=== PATIENT | male | born 1940 | race Two or more races ===

== ENCOUNTER 2018-02-13 19:55 | Inpatient (IN) | payer MEDICARE, OTHER ==
[~2018-02-13] VITALS: Ht 188 cm; Wt 82.6 kg
[2018-02-13] MEDS ORDERED: Pantoprazole Inj IVP ONE (20:00)
[2018-02-13 20:10] VITALS: BP 139/51
[2018-02-13 20:36] LABS: HEMATOCRIT 23.8 % (42.0-52.0); HEMOGLOBIN 8.5 G/DL (14.2-18.0); MEAN CORPUSCULAR VOLUME 89 FL (80-99); PLATELET COUNT 117 K/UL (150-450); RED BLOOD COUNT 2.67 M/UL (4.70-6.10); RED CELL DISTRIBUTION WIDTH 12.6 % (11.6-14.8); WHITE BLOOD COUNT 3.3 K/UL (4.8-10.8)
[2018-02-13 20:45] LABS: ANION GAP 4 mmol/L (5-15); BLOOD UREA NITROGEN 55 mg/dL (7-18); CALCIUM 8.9 MG/DL (8.5-10.1); CARBON DIOXIDE 28 MMOL/L (21-32); CHLORIDE 107 MMOL/L (98-107); CREATININE 1.9 MG/DL (0.55-1.30); POTASSIUM 5.7 MMOL/L (3.5-5.1); SODIUM 139 MMOL/L (136-145)
[2018-02-13 20:50] LABS: ALANINE AMINOTRANSFERASE 42 U/L (12-78); ALBUMIN/GLOBULIN RATIO 0.7 (1.0-2.7); ALKALINE PHOSPHATASE 87 U/L (46-116); ASPARTATE AMINO TRANSFERASE 25 U/L (15-37); BILIRUBIN,TOTAL 0.2 MG/DL (0.2-1.0)
[2018-02-13] MEDS ORDERED: ATORVASTATIN CA40 MG ORAL (21:11)
[2018-02-13] MEDS ORDERED: ASPIRIN EC81 MG ORAL (21:11)
[2018-02-13] MEDS ORDERED: RISPERDAL0.5 MG ORAL (21:11)
[2018-02-13] MEDS ORDERED: GLUCOTROL10 MG ORAL (21:11)
[2018-02-13] MEDS ORDERED: LANTUS SOL100 UNIT/1 SUBQ ×2 (21:11→21:12)
[2018-02-13] MEDS ORDERED: INSULIN LISPRO 100 UNIT/ML SUBQ (21:15)
[2018-02-13] MEDS ORDERED: SYNTHROID25 MCG ORAL (21:15)
[2018-02-13] MEDS ORDERED: KEPPRA750 MG ORAL (21:15)
[2018-02-13] MEDS ORDERED: JANUVIA100 MG ORAL (21:38)
[2018-02-13] MEDS ORDERED: LISINOPRIL10 MG ORAL (21:38)
[2018-02-13] MEDS ORDERED: NOVOLOG100 UNIT/3 SUBQ (21:41)
[2018-02-13] MEDS ORDERED: ACETAMINOPHEN325 M1 ORAL (21:41)
[2018-02-13] MEDS ORDERED: DOCUSATE SODIU100 MG ORAL (21:41)
[2018-02-13 22:10] VITALS: BP 172/89
[2018-02-13] MEDS ORDERED: LORazepam Inj 2mg/ml 1ml ONE (22:51)
[2018-02-13] MEDS ORDERED: LORazepam 0.5mg tab ORAL ONE (23:00)
[2018-02-13] MEDS ORDERED: LORazepam Inj 2mg/ml 1ml IV ONE (23:00)
--- NOTE | 2018-02-13 23:04 | Emergency Room Report ---
History of Present Illness General Chief Complaint: Abnormal Labs Source: Medical Record Present Illness HPI This is a 78-year-old male sent in from nursing facility after increased altered mental status and abnormal laboratory testing. The patient was noted to have evidence of increased generalized weakness. Patient stated that he had been sent to the hospital for a chronic pain to his hand. The patient is noted to have multiple medical problems which include HIV diabetes and hypothyroidism. The patient noted be markedly confused. History is limited by patient's mental status. Allergies: Coded Allergies: No Known Allergies (Unverified , 02/13/18) Patient History Reviewed Nursing Documentation: PMH: Agreed; PSxH: Agreed Nursing Documentation-PMH Past Medical History: No History, Except For Hx Hypertension: Yes Hx Diabetes: Yes History Of Psychiatric Problem: Yes Hx Cerebrovascular Accident: Yes - left Hx Seizures: Yes Review of Systems All Other Systems: limited Physical Exam Vital Signs Date Time Temp Pulse Resp B/P (MAP) Pulse Ox O2 Delivery O2 Flow Rate FiO2 02/13/18 19:45 98.0 75 20 120/63 97 98.1 Sp02 EP Interpretation: reviewed, normal General Appearance: normal inspection, alert, Chronically Ill Head: atraumatic ENT: normal ENT inspection, normal voice, dry mucus membranes Neck: normal inspection, supple, no bony tend, limited range of motion Respiratory: normal inspection, lungs clear, normal breath sounds, no respiratory distress, no retraction, no wheezing Cardiovascular #1: regular rate, rhythm, edema - left upper extremity edema Gastrointestinal: normal inspection, normal bowel sounds, non tender, soft, no guarding, no hernia Genitourinary: no CVA tenderness Musculoskeletal: normal range of motion, swelling - left upper extremity swelling Neurologic: alert, responsive, other - confusion, Psychiatric: mood/affect normal Skin: no rash Medical Decision Making Diagnostic Impression: Primary Impression: Pancytopenia Additional Impression: Hyperkalemia ER Course The patient presented for abnormal laboratory testing. Differential diagnoses included was not limited to aplastic anemia, GI bleed, hemolysis, hypothyroidism , among others. Because of complexity of patient's case laboratory testing and imaging studies were ordered. The laboratory testing showed evidence of anemia as well as thrombocytopenia and low white count. The patient started on IV fluids due to elevated BUN/ creatinine. Dr. Collins was contacted for Dr. Sandoval for inpatient management due to hyperkalemia and pancytopenia. Labs Test 02/13/18 20:00 White Blood Count 3.3 K/UL (4.8-10.8) Red Blood Count 2.67 M/UL (4.70-6.10) Hemoglobin 8.5 G/DL (14.2-18.0) Hematocrit 23.8 % (42.0-52.0) Mean Corpuscular Volume 89 FL (80-99) Mean Corpuscular Hemoglobin 31.8 PG (27.0-31.0) Mean Corpuscular Hemoglobin Concent 35.7 G/DL (32.0-36.0) Red Cell Distribution Width 12.6 % (11.6-14.8) Platelet Count 117 K/UL (150-450) Mean Platelet Volume 6.7 FL (6.5-10.1) Neutrophils (%) (Auto) % (45.0-75.0) Lymphocytes (%) (Auto) % (20.0-45.0) Monocytes (%) (Auto) % (1.0-10.0) Eosinophils (%) (Auto) % (0.0-3.0) Basophils (%) (Auto) % (0.0-2.0) Differential Total Cells Counted 100 Neutrophils % (Manual) 60 % (45-75) Lymphocytes % (Manual) 36 % (20-45) Monocytes % (Manual) 3 % (1-10) Eosinophils % (Manual) 1 % (0-3) Basophils % (Manual) 0 % (0-2) Band Neutrophils 0 % (0-8) Platelet Estimate Decreased Platelet Morphology Normal Red Blood Cell Morphology Normal Hypochromasia 1+ Prothrombin Time 10.1 SEC (9.30-11.50) Prothromb Time International Ratio 1.0 (0.9-1.1) Activated Partial Thromboplast Time 25 SEC (23-33) Sodium Level 139 MMOL/L (136-145) Potassium Level 5.7 MMOL/L (3.5-5.1) Chloride Level 107 MMOL/L (98-107) Carbon Dioxide Level 28 MMOL/L (21-32) Anion Gap 4 mmol/L (5-15) Blood Urea Nitrogen 55 mg/dL (7-18) Creatinine 1.9 MG/DL (0.55-1.30) Estimat Glomerular Filtration Rate mL/min (>60) Glucose Level 317 MG/DL (74-106) Calcium Level 8.9 MG/DL (8.5-10.1) Total Bilirubin 0.2 MG/DL (0.2-1.0) Aspartate Amino Transf (AST/SGOT) 25 U/L (15-37) Alanine Aminotransferase (ALT/SGPT) 42 U/L (12-78) Alkaline Phosphatase 87 U/L (46-116) Total Protein 7.1 G/DL (6.4-8.2) Albumin 3.0 G/DL (3.4-5.0) Globulin 4.1 g/dL Albumin/Globulin Ratio 0.7 (1.0-2.7) Last Vital Signs Date Time Temp Pulse Resp B/P (MAP) Pulse Ox O2 Delivery O2 Flow Rate FiO2 02/13/18 20:10 98.1 66 17 139/51 100 98.1 Status: unchanged Disposition: ADMITTED INPATIENT Condition: Stable Referrals: Stella Gandara MD (PCP) Charlie Saunders MD Feb 13, 2018 23:04
[2018-02-13 23:13] VITALS: BP 162/79
[2018-02-14] VITALS (7 sets, daily range): BP systolic 116–158; BP diastolic 50–75
[2018-02-14] MEDS: LORazepam Inj 2mg/ml 1ml IV PRN ×2 (01:19→09:48)
[2018-02-14] MEDS: Levothyroxine 25mcg tab ORAL SCH (05:50)
[2018-02-14] MEDS: NovoLOG Insulin Flexpen SUBQ SCH ×4 (05:51→21:36)
[2018-02-14] MEDS ORDERED: Lisinopril 20mg tab ORAL SCH (09:00)
[2018-02-14] MEDS: Aspirin EC 81mg tab ORAL SCH (09:20)
[2018-02-14] MEDS: Docusate 100mg cap ORAL SCH (09:20)
[2018-02-14 12:49] LABS: HEMATOCRIT 21.5 % (42.0-52.0); HEMOGLOBIN 7.2 G/DL (14.2-18.0); MEAN CORPUSCULAR VOLUME 89 FL (80-99); PLATELET COUNT 78 K/UL (150-450); RED CELL DISTRIBUTION WIDTH 13.1 % (11.6-14.8); WHITE BLOOD COUNT 2.7 K/UL (4.8-10.8)
[2018-02-14 12:59] LABS: ANION GAP 3 mmol/L (5-15); BLOOD UREA NITROGEN 45 mg/dL (7-18); CALCIUM 8.4 MG/DL (8.5-10.1); CARBON DIOXIDE 28 MMOL/L (21-32); CHLORIDE 113 MMOL/L (98-107); CREATININE 1.5 MG/DL (0.55-1.30); SODIUM 144 MMOL/L (136-145)
[2018-02-14] MEDS ORDERED: levETIRAcetam 1,000mg/NS100ml 100 ML IVPB SCH (14:15)
--- NOTE | 2018-02-14 14:29 | History and Physical ---
History of Present Illness General Date patient seen: Feb 14, 2018 Time patient seen: 11:30 Reason for Hospitalization: Abnormal Labs Present Illness HPI Patient is sedated from getting Ativan, unable to obtain information (obtained from chart) 78 year old man with history of AIDS, significant dementia, DM2, epilepsy, dyslipidemia, unspecified psychiatric disorder, hypothyroidism who was sent from [facility] for evaluation of confusion/agitation and low Hb of 6.9. Hb here was initially noted to be 8.5 and today is 7.2 Patient was agitated upon presentation and treated with IV Ativan for agitation. He is unable to provide any information. Allergies: Coded Allergies: No Known Allergies (Unverified , 02/13/18) Medication History Scheduled Aspirin Ec* (Aspirin Ec*), 81 MG ORAL DAILY, (Reported) Atorvastatin Calcium* (Atorvastatin Calcium*), 40 MG ORAL BEDTIME, (Reported) Docusate Sodium* (Docusate Sodium*), 100 MG ORAL DAILY, (Reported) Glipizide* (Glucotrol*), 10 MG ORAL ACBREAKFAST, (Reported) Insulin Glargine (Lantus), 30 UNITS SUBQ BEFORE BREAKFAST, (Reported) Insulin Glargine (Lantus), 10 UNITS SUBQ BEDTIME, (Reported) Levetiracetam (Keppra), 1,500 MG ORAL BID, (Reported) Levothyroxine Sodium* (Synthroid*), 25 MCG ORAL DAILY, (Reported) Lisinopril* (Lisinopril*), 10 MG ORAL DAILY, (Reported) Risperidone* (Risperdal*), 1.5 MG ORAL BID, (Reported) Sitagliptin (Januvia), 100 MG ORAL DAILY, (Reported) [Lispro 100 Units/Ml], 3 UNITS SUBQ TID, (Reported) Scheduled PRN Acetaminophen* (Acetaminophen 325MG Tablet*), 650 MG ORAL Q6H PRN for Mild Pain/ Temp > 100.5, (Reported) Miscellaneous Medications Insulin Aspart* (Novolog*), Unknown Dose SUBQ, (Reported) Patient History Limited by: medical condition History Provided By: Medical Record Healthcare decision maker Resuscitation status Full Code Advanced Directive on File No Family History Family History: Unable to obtain due to encephalopathy Social History Social History: (1) Unable to obtan due to encephalopathy Review of Systems ROS Narrative Unable to obtain due to encephalopathy Physical Exam General Appearance: lethargic Lines, tubes and drains: peripheral HEENT: normocephalic, atraumatic, anicteric Neck: non-tender, normal alignment, supple Respiratory/Chest: lungs clear, normal breath sounds, no respiratory distress Cardiovascular/Chest: normal peripheral pulses, normal rate, regular rhythm Abdomen: normal bowel sounds, non tender Extremities: normal inspection, no edema Skin Exam: normal pigmentation, warm/dry Neurologic: other - Unable to participate in Neuro exam due to confusion Musculoskeletal: normal muscle bulk, no effusion Last 24 Hour Vital Signs Date Time Temp Pulse Resp B/P (MAP) Pulse Ox O2 Delivery O2 Flow Rate FiO2 02/14/18 12:00 96.7 59 18 132/68 (89) 99 96.7 02/14/18 09:19 123/55 02/14/18 09:00 Room Air 02/14/18 08:00 58 02/14/18 08:00 97.5 70 19 123/55 (77) 99 97.5 02/14/18 04:00 58 02/14/18 04:00 98.1 68 19 139/66 (90) 95 98.1 02/14/18 00:38 Room Air 02/14/18 00:31 78 02/14/18 00:25 98.1 88 17 158/60 100 98.1 02/14/18 00:25 97.3 79 18 147/75 (99) 99 97.3 02/14/18 00:04 98.1 88 17 158/60 100 98.1 02/13/18 23:13 98.1 75 17 162/79 100 98.1 02/13/18 22:10 98.1 82 17 172/89 100 98.1 02/13/18 20:10 98.1 66 17 139/51 100 98.1 02/13/18 19:45 98.0 75 20 120/63 97 98.1 Intake and Output 02/13/18 02/14/18 19:00 07:00 Output Total 200 ml Balance -200 ml Output Urine Total 200 ml # Voids 1 Laboratory Tests Test 02/13/18 20:00 02/14/18 12:41 White Blood Count 3.3 K/UL (4.8-10.8) L 2.7 K/UL (4.8-10.8) L Red Blood Count 2.67 M/UL (4.70-6.10) L 2.40 M/UL (4.70-6.10) L Hemoglobin 8.5 G/DL (14.2-18.0) L 7.2 G/DL (14.2-18.0) L Hematocrit 23.8 % (42.0-52.0) L 21.5 % (42.0-52.0) L Mean Corpuscular Volume 89 FL (80-99) 89 FL (80-99) Mean Corpuscular Hemoglobin 31.8 PG (27.0-31.0) H 30.0 PG (27.0-31.0) Mean Corpuscular Hemoglobin Concent 35.7 G/DL (32.0-36.0) 33.6 G/DL (32.0-36.0) Red Cell Distribution Width 12.6 % (11.6-14.8) 13.1 % (11.6-14.8) Platelet Count 117 K/UL (150-450) L 78 K/UL (150-450) L Mean Platelet Volume 6.7 FL (6.5-10.1) 7.3 FL (6.5-10.1) Neutrophils (%) (Auto) % (45.0-75.0) % (45.0-75.0) Lymphocytes (%) (Auto) % (20.0-45.0) % (20.0-45.0) Monocytes (%) (Auto) % (1.0-10.0) % (1.0-10.0) Eosinophils (%) (Auto) % (0.0-3.0) % (0.0-3.0) Basophils (%) (Auto) % (0.0-2.0) % (0.0-2.0) Differential Total Cells Counted 100 Neutrophils % (Manual) 60 % (45-75) Pending Lymphocytes % (Manual) 36 % (20-45) Pending Monocytes % (Manual) 3 % (1-10) Eosinophils % (Manual) 1 % (0-3) Basophils % (Manual) 0 % (0-2) Band Neutrophils 0 % (0-8) Platelet Estimate Decreased L Pending Platelet Morphology Normal Pending Red Blood Cell Morphology Normal Hypochromasia 1+ Prothrombin Time 10.1 SEC (9.30-11.50) Prothromb Time International Ratio 1.0 (0.9-1.1) Activated Partial Thromboplast Time 25 SEC (23-33) Sodium Level 139 MMOL/L (136-145) 144 MMOL/L (136-145) Potassium Level 5.7 MMOL/L (3.5-5.1) H 5.0 MMOL/L (3.5-5.1) Chloride Level 107 MMOL/L (98-107) 113 MMOL/L (98-107) H Carbon Dioxide Level 28 MMOL/L (21-32) 28 MMOL/L (21-32) Anion Gap 4 mmol/L (5-15) L 3 mmol/L (5-15) L Blood Urea Nitrogen 55 mg/dL (7-18) H 45 mg/dL (7-18) H Creatinine 1.9 MG/DL (0.55-1.30) H 1.5 MG/DL (0.55-1.30) H Estimat Glomerular Filtration Rate mL/min (>60) mL/min (>60) Glucose Level 317 MG/DL (74-106) H 117 MG/DL (74-106) #H Calcium Level 8.9 MG/DL (8.5-10.1) 8.4 MG/DL (8.5-10.1) L Total Bilirubin 0.2 MG/DL (0.2-1.0) Aspartate Amino Transf (AST/SGOT) 25 U/L (15-37) Alanine Aminotransferase (ALT/SGPT) 42 U/L (12-78) Alkaline Phosphatase 87 U/L (46-116) Total Protein 7.1 G/DL (6.4-8.2) Albumin 3.0 G/DL (3.4-5.0) L Globulin 4.1 g/dL Albumin/Globulin Ratio 0.7 (1.0-2.7) L Height (Feet): 6 Height (Inches): 2.00 Weight (Pounds): 200 Medications Current Medications Medications (Trade) Dose Ordered Sig/Yoandy Route PRN Reason Start Time Stop Time Status Last Admin Dose Admin Acetaminophen (Tylenol) 650 mg Q6HR PRN ORAL Mild Pain (Pain Scale 1-3) 02/14/18 01:00 03/16/18 00:59 Aspirin (Ecotrin) 81 mg DAILY ORAL 02/14/18 09:00 03/16/18 08:59 02/14/18 09:20 Atorvastatin Calcium (Lipitor) 40 mg BEDTIME ORAL 02/14/18 21:00 03/16/18 20:59 Dextrose (Dextrose 50%) 25 ml STAT PRN IV Hypoglycemia 02/14/18 01:00 03/16/18 00:59 Dextrose (Dextrose 50%) 50 ml STAT PRN IV Hypoglycemia 02/14/18 01:00 03/16/18 00:59 Docusate Sodium (Colace) 100 mg DAILY ORAL 02/14/18 09:00 03/16/18 08:59 02/14/18 09:20 Insulin Aspart (NovoLOG) BEFORE MEALS AND HS SUBQ 02/14/18 06:30 03/16/18 06:29 02/14/18 11:53 Levetiracetam 100 ml @ 400 mls/hr BID IVPB 02/14/18 14:15 03/16/18 14:14 UNV Levetiracetam 1500 mg/Dextrose 110 ml @ 440 mls/hr Q12HR IVPB 02/14/18 14:15 03/16/18 14:14 UNV Levothyroxine Sodium (Synthroid) 25 mcg ACBREAKFAST ORAL 02/14/18 06:30 03/16/18 06:29 02/14/18 05:50 Sodium Chloride 1,000 ml @ 100 mls/hr Q10H IV 02/14/18 12:00 03/16/18 11:59 02/14/18 12:16 Assessment/Plan Assessment/Plan Acute encephalopathy superimposed on chronic dementia, also exacerbated by sedative medications given for agitation. Unclear etiology, could be related to mild AGUILAR present on admission or occult infection. Will admit to medical service , continue to treat supportively, avoid benzos, frequent orienting, fall, aspiration precautions. Correct underlying AGUILAR. Psychiatry consulted. Mild AGUILAR, unknown etiology, improved, continue with IV fluids and repeat BMP in AM. Avoid nephrotic meds Hyperkalemia, potassium has improved from 5.7 to 5.0, continue to monitor daily potassium levels Acute on chronic anemia, no evidence of major bleeding, will check fecal occult blood. Hematology consulted history of epilepsy, will give Keppra intravenously as he is unable to take PO meds due to lethargy type 2 DM, controlled, hold oral diabetic meds while oral intake is minimal, will give reduced dose Lantus Hypothyroidism, continue levothyroxine - can give intravenously if he remains lethargic. VTE PPx Heparin SC Full Code Patient will require a hospitalization crossing 2 midnights in order to treat his AGUILAR with IV fluids and monitor progress of the acute encephalopathy Gavino Amaya MD Feb 14, 2018 14:29
[2018-02-14] MEDS: levETIRAcetam 1,500 MG in D5W 95 ML IV SCH (15:13)
--- NOTE | 2018-02-14 15:40 | Cardiology Report ---
APPROVED REPORT EKG Measurement Heart [id number] Sinus rhythm with 1st degree AV block Left axis deviation Nonspecific ST abnormality Abnormal ECG
--- NOTE | 2018-02-14 15:45 | Consultation ---
Consult Note Consult Note Hematology Consultation FATOUMATA REBOLLAR: Juliocesar DOS: 02/14/18 RFC: Pancytopenia ID 78 year old man with history of AIDS, significant dementia, DM2, epilepsy, dyslipidemia, unspecified psychiatric disorder, hypothyroidism who was sent from [facility] for evaluation of confusion/agitation and low Hb of 6.9. Hb here was initially noted to be 8.5 and today is 7.2 Patient was agitated upon presentation and treated with IV Ativan for agitation. He is unable to provide any information.Patient is sedated from getting Ativan, unable to obtain information (obtained from chart) in addition this the first time cbc was drawn as per review of the records Allergies: No Known Allergies (Unverified , 02/13/18) Medication History Scheduled Aspirin Ec* (Aspirin Ec*), 81 MG ORAL DAILY, (Reported) Atorvastatin Calcium* (Atorvastatin Calcium*), 40 MG ORAL BEDTIME, (Reported) Docusate Sodium* (Docusate Sodium*), 100 MG ORAL DAILY, (Reported) Glipizide* (Glucotrol*), 10 MG ORAL ACBREAKFAST, (Reported) Insulin Glargine (Lantus), 30 UNITS SUBQ BEFORE BREAKFAST, (Reported) Insulin Glargine (Lantus), 10 UNITS SUBQ BEDTIME, (Reported) Levetiracetam (Keppra), 1,500 MG ORAL BID, (Reported) Levothyroxine Sodium* (Synthroid*), 25 MCG ORAL DAILY, (Reported) Lisinopril* (Lisinopril*), 10 MG ORAL DAILY, (Reported) Risperidone* (Risperdal*), 1.5 MG ORAL BID, (Reported) Sitagliptin (Januvia), 100 MG ORAL DAILY, (Reported) [Lispro 100 Units/Ml], 3 UNITS SUBQ TID, (Reported) Scheduled PRN Acetaminophen* (Acetaminophen 325MG Tablet*), 650 MG ORAL Q6H PRN for Mild Pain/ Temp > 100.5, (Reported) Miscellaneous Medications Insulin Aspart* (Novolog*), Unknown Dose SUBQ, (Reported) Patient History Limited by: medical condition History Provided By: Medical Record Healthcare decision maker Full Code Advanced Directive on File No Family History Family History: Unable to obtain due to encephalopathy Social History Social History: (1) Unable to obtan due to encephalopathy Review of Systems ROS Narrative Unable to obtain due to encephalopathy Physical Exam General Appearance: lethargic Lines, tubes and drains: peripheral HEENT: normocephalic, atraumatic Neck: non-tender, normal alignment, supple Respiratory/Chest: lungs clear, normal breath sounds Cardiovascular/Chest: normal peripheral pulses, rrr Abdomen: normal bowel sounds, nt Extremities: normal inspection, no edema Skin Exam: normal pigmentation, warm/dry Neurologic: other - Unable to participate in Neuro exam due to confusion Musculoskeletal: normal muscle bulk, no effusion Last 24 Hour Vital Signs Date Time Temp Pulse Resp B/P (MAP) Pulse Ox O2 Delivery O2 Flow Rate FiO2 02/14/18 12:00 96.7 59 18 132/68 (89) 99 96.7 02/14/18 09:19 123/55 02/14/18 09:00 Room Air 02/14/18 08:00 58 02/14/18 08:00 97.5 70 19 123/55 (77) 99 97.5 02/14/18 04:00 58 02/14/18 04:00 98.1 68 19 139/66 (90) 95 98.1 02/14/18 00:38 Room Air 02/14/18 00:31 78 02/14/18 00:25 98.1 88 17 158/60 100 98.1 02/14/18 00:25 97.3 79 18 147/75 (99) 99 97.3 02/14/18 00:04 98.1 88 17 158/60 100 98.1 02/13/18 23:13 98.1 75 17 162/79 100 98.1 02/13/18 22:10 98.1 82 17 172/89 100 98.1 02/13/18 20:10 98.1 66 17 139/51 100 98.1 02/13/18 19:45 98.0 75 20 120/63 97 98.1 Intake and Output 02/13/18 02/14/18 19:00 07:00 Output Total 200 ml Balance -200 ml Output Urine Total 200 ml # Voids 1 Laboratory Tests Test 02/13/18 20:00 02/14/18 12:41 White Blood Count 3.3 K/UL (4.8-10.8) L 2.7 K/UL (4.8-10.8) L Red Blood Count 2.67 M/UL (4.70-6.10) L 2.40 M/UL (4.70-6.10) L Hemoglobin 8.5 G/DL (14.2-18.0) L 7.2 G/DL (14.2-18.0) L Hematocrit 23.8 % (42.0-52.0) L 21.5 % (42.0-52.0) L Mean Corpuscular Volume 89 FL (80-99) 89 FL (80-99) Mean Corpuscular Hemoglobin 31.8 PG (27.0-31.0) H 30.0 PG (27.0-31.0) Mean Corpuscular Hemoglobin Concent 35.7 G/DL (32.0-36.0) 33.6 G/DL (32.0-36.0) Red Cell Distribution Width 12.6 % (11.6-14.8) 13.1 % (11.6-14.8) Platelet Count 117 K/UL (150-450) L 78 K/UL (150-450) L Mean Platelet Volume 6.7 FL (6.5-10.1) 7.3 FL (6.5-10.1) Neutrophils (%) (Auto) % (45.0-75.0) % (45.0-75.0) Lymphocytes (%) (Auto) % (20.0-45.0) % (20.0-45.0) Monocytes (%) (Auto) % (1.0-10.0) % (1.0-10.0) Eosinophils (%) (Auto) % (0.0-3.0) % (0.0-3.0) Basophils (%) (Auto) % (0.0-2.0) % (0.0-2.0) Differential Total Cells Counted 100 Neutrophils % (Manual) 60 % (45-75) Pending Lymphocytes % (Manual) 36 % (20-45) Pending Monocytes % (Manual) 3 % (1-10) Eosinophils % (Manual) 1 % (0-3) Basophils % (Manual) 0 % (0-2) Band Neutrophils 0 % (0-8) Platelet Estimate Decreased L Pending Platelet Morphology Normal Pending Red Blood Cell Morphology Normal Hypochromasia 1+ Prothrombin Time 10.1 SEC (9.30-11.50) Prothromb Time International Ratio 1.0 (0.9-1.1) Activated Partial Thromboplast Time 25 SEC (23-33) Sodium Level 139 MMOL/L (136-145) 144 MMOL/L (136-145) Potassium Level 5.7 MMOL/L (3.5-5.1) H 5.0 MMOL/L (3.5-5.1) Chloride Level 107 MMOL/L (98-107) 113 MMOL/L (98-107) H Carbon Dioxide Level 28 MMOL/L (21-32) 28 MMOL/L (21-32) Anion Gap 4 mmol/L (5-15) L 3 mmol/L (5-15) L Blood Urea Nitrogen 55 mg/dL (7-18) H 45 mg/dL (7-18) H Creatinine 1.9 MG/DL (0.55-1.30) H 1.5 MG/DL (0.55-1.30) H Estimat Glomerular Filtration Rate mL/min (>60) mL/min (>60) Glucose Level 317 MG/DL (74-106) H 117 MG/DL (74-106) #H Calcium Level 8.9 MG/DL (8.5-10.1) 8.4 MG/DL (8.5-10.1) L Total Bilirubin 0.2 MG/DL (0.2-1.0) Aspartate Amino Transf (AST/SGOT) 25 U/L (15-37) Alanine Aminotransferase (ALT/SGPT) 42 U/L (12-78) Alkaline Phosphatase 87 U/L (46-116) Total Protein 7.1 G/DL (6.4-8.2) Albumin 3.0 G/DL (3.4-5.0) L Globulin 4.1 g/dL Albumin/Globulin Ratio 0.7 (1.0-2.7) L Height (Feet): 6 Height (Inches): 2.00 Weight (Pounds): 200 Medications Current Medications Medications (Trade) Dose Ordered Sig/Yoandy Route PRN Reason Start Time Stop Time Status Last Admin Dose Admin Acetaminophen (Tylenol) 650 mg Q6HR PRN ORAL Mild Pain (Pain Scale 1-3) 02/14/18 01:00 03/16/18 00:59 Aspirin (Ecotrin) 81 mg DAILY ORAL 02/14/18 09:00 03/16/18 08:59 02/14/18 09:20 Atorvastatin Calcium (Lipitor) 40 mg BEDTIME ORAL 02/14/18 21:00 03/16/18 20:59 Dextrose (Dextrose 50%) 25 ml STAT PRN IV Hypoglycemia 02/14/18 01:00 03/16/18 00:59 Dextrose (Dextrose 50%) 50 ml STAT PRN IV Hypoglycemia 02/14/18 01:00 03/16/18 00:59 Docusate Sodium (Colace) 100 mg DAILY ORAL 02/14/18 09:00 03/16/18 08:59 02/14/18 09:20 Insulin Aspart (NovoLOG) BEFORE MEALS AND HS SUBQ 02/14/18 06:30 03/16/18 06:29 02/14/18 11:53 Levetiracetam 100 ml @ 400 mls/hr BID IVPB 02/14/18 14:15 03/16/18 14:14 UNV Levetiracetam 1500 mg/Dextrose 110 ml @ 440 mls/hr Q12HR IVPB 02/14/18 14:15 03/16/18 14:14 UNV Levothyroxine Sodium (Synthroid) 25 mcg ACBREAKFAST ORAL 02/14/18 06:30 03/16/18 06:29 02/14/18 05:50 Sodium Chloride 1,000 ml @ 100 mls/hr Q10H IV 02/14/18 12:00 03/16/18 11:59 02/14/18 12:16 Assessment/Recs: # Pancytopenia - unknown cause and requires workup at this time, have ordered several labs as noted before and imaging as wel --> hepatitis and hiv ordered, us of the abdomen --> anemia panel ordered as well, ferritin, tibc, folic acid, tsh, occult blood --> peripheral smear ordered --> imaging to be reviewed --> r/o infectious etiology # Acute encephalopathy superimposed on chronic dementia, also exacerbated by sedative medications given for agitation. Unclear etiology, could be related to mild AGUILAR present on admission or occult infection. # AMS - avoid benzos, frequent orienting, fall, aspiration precautions. Correct underlying AGUILAR. Psychiatry consulted. # Mild AGUILAR, unknown etiology, improved, continue with IV fluids and repeat BMP in AM. Avoid nephrotic meds # Hyperkalemia, potassium has improved from 5.7 to 5.0, continue to monitor daily potassium levels # History of epilepsy, will give Keppra intravenously as he is unable to take PO meds due to lethargy # type 2 DM, controlled, hold oral diabetic meds while oral intake is minimal, will give reduced dose Lantus # Hypothyroidism, continue levothyroxine - can give intravenously if he remains lethargic. # Azotemia has been reviewed # DVT ppx is ok with heparin if plt >50k GREATLY APPRECIATE CONSULTATION. Watson Adams MD Feb 14, 2018 15:45
[2018-02-14 16:45] LABS: % IRON SATURATION 26 % (15-50); IRON 54 ug/dL (50-175); TOTAL IRON BINDING CAPACITY 207 ug/dL (250-450)
[2018-02-14 18:16] LABS: FERRITIN 317 NG/ML (8-388); LACTATE DEHYDROGENASE 197 U/L (81-234)
[2018-02-14] MEDS: Levemir Flexpen SUBQ SCH (21:37)
[2018-02-14] MEDS: Atorvastatin 80mg tab ORAL SCH (21:39)
[2018-02-15] VITALS: BP 103/64
[2018-02-15] MEDS ORDERED: Haloperidol Decanoate 50mg Inj IM SCH (00:15)
[2018-02-15] MEDS ORDERED: Haloperidol 5mg/ml Inj IM SCH ×2 (00:30→09:30)
[2018-02-15] MEDS: levETIRAcetam 1,500 MG in D5W 95 ML IV SCH ×2 (03:18→15:56)
[2018-02-15 04:00] VITALS: BP 110/62
[2018-02-15] MEDS: NovoLOG Insulin Flexpen SUBQ SCH ×4 (06:08→20:22)
[2018-02-15] MEDS: Levothyroxine 25mcg tab ORAL SCH (06:31)
[2018-02-15 07:13] LABS: ANION GAP 3 mmol/L (5-15); BLOOD UREA NITROGEN 45 mg/dL (7-18); CALCIUM 8.4 MG/DL (8.5-10.1); CARBON DIOXIDE 27 MMOL/L (21-32); CHLORIDE 111 MMOL/L (98-107); CREATININE 1.6 MG/DL (0.55-1.30); POTASSIUM 5.4 MMOL/L (3.5-5.1); SODIUM 141 MMOL/L (136-145)
[2018-02-15 07:19] LABS: HEMATOCRIT 23.1 % (42.0-52.0); MEAN CORPUSCULAR VOLUME 89 FL (80-99); PLATELET COUNT 99 K/UL (150-450); RED BLOOD COUNT 2.58 M/UL (4.70-6.10); RED CELL DISTRIBUTION WIDTH 12.5 % (11.6-14.8); WHITE BLOOD COUNT 3.2 K/UL (4.8-10.8)
[2018-02-15] MEDS: Docusate 100mg cap ORAL SCH (08:32)
[2018-02-15] MEDS: Aspirin EC 81mg tab ORAL SCH (08:32)
[2018-02-15 08:39] VITALS: BP 148/72
[2018-02-15] MEDS ORDERED: Sodium Polystyrene Sulfonate Enema RECTAL ONE (10:00)
[2018-02-15] MEDS ORDERED: Haloperidol Lactate 5 MG in D5W 55 ML IVPB PRN (11:00)
[2018-02-15] MEDS: LORazepam Inj 2mg/ml 1ml IM PRN ×3 (11:05→23:12)
[2018-02-15 12:00] VITALS: BP 150/78
--- NOTE | 2018-02-15 14:14 | General Progress Note ---
Assessment/Plan Assessment/Plan Acute encephalopathy superimposed on chronic dementia, likely multifactorial, continue to treat underlying acute medical problems and provide supportive care. Mild AGUILAR, improved renal function, will stop IV fludis. Check labs in AM. Hyperkalemia, K of 5.4 today, give once dose of Kayexel[place]. Repeat labs in AM. Acute on chronic anemia, pancytopenia, no evidence of major bleeding, Hematology eval appreciated. history of epilepsy, continue Keppra type 2 DM, controlled, controlled, continue Levemir 10 units daily Hypothyroidism, continue levothyroxine VTE PPx Heparin SC Subjective Date patient seen: Feb 15, 2018 Time patient seen: 14:10 ROS Limited/Unobtainable: Yes Allergies: Coded Allergies: No Known Allergies (Unverified , 02/13/18) Subjective Medicine followup for pancytopenia, acute metabolic encephalopathy, AGUILAR, hyperkalemia. He remains confused and agiatted at time. Unable to obtain ROS due to dementia and encephalopathy Objective Last 24 Hour Vital Signs Date Time Temp Pulse Resp B/P (MAP) Pulse Ox O2 Delivery O2 Flow Rate FiO2 02/15/18 12:00 96.6 71 18 150/78 (102) 98 96.6 02/15/18 08:52 Room Air 02/15/18 08:39 96.4 67 18 148/72 (97) 99 96.4 02/15/18 08:00 73 02/15/18 04:00 71 02/15/18 04:00 98.1 55 18 110/62 (78) 95 98.1 02/15/18 01:24 72 02/15/18 00:00 98.0 54 18 103/64 (77) 95 98.0 02/14/18 21:00 Room Air 02/14/18 20:00 98.5 72 18 116/50 (72) 98 98.5 02/14/18 16:00 96.9 76 18 144/57 (86) 100 96.9 02/14/18 16:00 53 Intake and Output 02/14/18 02/15/18 19:00 07:00 Intake Total 400 ml 1300 ml Output Total 0 ml Balance 400 ml 1300 ml Intake Oral 400 ml 240 ml IV Total 1060 ml Stool Total 0 ml # Voids 3 3 Laboratory Tests 02/15/18 06:35: White Blood Count 3.2L, Red Blood Count 2.58L, Hemoglobin 8.0L, Hematocrit 23.1L , Mean Corpuscular Volume 89, Mean Corpuscular Hemoglobin 30.9, Mean Corpuscular Hemoglobin Concent 34.5, Red Cell Distribution Width 12.5, Platelet Count 99L, Mean Platelet Volume 7.1, Neutrophils (%) (Auto) , Lymphocytes (%) ( Auto) , Monocytes (%) (Auto) , Eosinophils (%) (Auto) , Basophils (%) (Auto) , Differential Total Cells Counted 100, Neutrophils % (Manual) 67, Lymphocytes % ( Manual) 25, Monocytes % (Manual) 5, Eosinophils % (Manual) 2, Basophils % ( Manual) 1, Band Neutrophils 0, Platelet Estimate DecreasedL, Platelet Morphology Normal, Hypochromasia 2+, Sodium Level 141, Potassium Level 5.4H, Chloride Level 111H, Carbon Dioxide Level 27, Anion Gap 3L, Blood Urea Nitrogen 45H, Creatinine 1.6H, Estimat Glomerular Filtration Rate , Glucose Level 119H, Calcium Level 8.4L Height (Feet): 6 Height (Inches): 2.00 Weight (Pounds): 200 General Appearance: alert, confused Neck: supple Cardiovascular: normal rate, regular rhythm Respiratory/Chest: normal breath sounds, no respiratory distress Abdomen: non tender, soft Gavino Amaay MD Feb 15, 2018 14:14
[2018-02-15] MEDS: Haloperidol 5mg/ml Inj IM PRN (14:20)
[2018-02-15 16:00] VITALS: BP 137/69
--- NOTE | 2018-02-15 16:43 | Diagnostic Imaging Report ---
Indication: Abdominal pain. Technique: A plantar ultrasound evaluation of the abdomen with duplex Doppler evaluation. Comparison: None Findings: Imaged portions of the pancreatic head grossly unremarkable. Liver is normal in size with the right hepatic lobe measuring 15 cm in length. No focal hepatic mass lesion is appreciated sonographically. Imaged hepatic veins are patent. Main portal vein is patent with normal direction of flow. Gallbladder is not identified. There is some echogenic structures in the gallbladder fossa, possibly surgical clips. Correlate for history of cholecystectomy. No intrahepatic or extra hepatic biliary ductal dilatation. The common bile duct measures approximately 2 mm in diameter. The right kidney measures 9.8 cm in length. Left kidney measures 9.8 cm in length. Both kidneys demonstrate normal echogenicity. Small simple appearing left renal cyst incidentally noted. The spleen is mildly enlarged measuring 12.7 cm in length. Trace ascites is noted in the left pericolic gutter. Question a small pericardial effusion. Atherosclerotic vascular calcifications noted in the abdominal aorta. Imaged portions of the abdominal aorta are normal in caliber.. Impression: * Lack of visualization of the gallbladder. Correlate for history of cholecystectomy. * Question small pericardial effusion. Correlation with echocardiogram recommended. * Trace ascites noted in the left pericolic gutter. * Borderline splenomegaly with the spleen measuring 12.7 cm in length.
[2018-02-15 20:00] VITALS: BP 151/76
[2018-02-15] MEDS: Atorvastatin 80mg tab ORAL SCH (20:21)
[2018-02-15] MEDS: Levemir Flexpen SUBQ SCH (20:22)
--- NOTE | 2018-02-15 21:09 | General Progress Note ---
Assessment/Plan Assessment/Plan Assessment/Recs: # Pancytopenia - unknown cause and requires workup at this time, have ordered several labs as noted before and imaging as well --> hepatitis and hiv ordered, us of the abdomen shows spenomegaly that is enlarged spleen --> anemia panel ordered as well, ferritin, tibc, folic acid, tsh, occult blood --> peripheral smear reviewed and shows no significant abnml --> r/o infectious etiology # Acute encephalopathy superimposed on chronic dementia, also exacerbated by sedative medications given for agitation. Unclear etiology, could be related to mild AGUILAR present on admission or occult infection. --> avoid benzos, frequent orienting, fall, aspiration precautions. Correct underlying AGUILAR. --> Psychiatry consulted. appreciate recs # Mild AGUILAR, unknown etiology, improved, continue with IV fluids and repeat BMP in AM. --> Avoid nephrotic meds # Hyperkalemia, potassium has improved from 5.7 to 5.0, continue to monitor daily potassium levels # History of epilepsy, will give Keppra intravenously as he is unable to take PO meds due to lethargy # type 2 DM, controlled, hold oral diabetic meds while oral intake is minimal, will give reduced dose Lantus # Hypothyroidism, continue levothyroxine - can give intravenously if he remains lethargic. # Azotemia has been reviewed # DVT ppx is ok with heparin if plt >50k GREATLY APPRECIATE CONSULTATION. Subjective Constitutional: Denies: no symptoms, chills, diaphoresis, fever, malaise, weakness, other HEENT: Denies: no symptoms, eye pain, blurred vision, tearing, double vision, ear pain, ear discharge, nose pain, nose congestion, throat pain, throat swelling, mouth pain, mouth swelling, other Cardiovascular: Denies: no symptoms, chest pain, edema, irregular heart rate, lightheadedness, palpitations, syncope, other Respiratory: Denies: no symptoms, cough, orthopnea, shortness of breath, SOB with excertion, SOB at rest, sputum, stridor, wheezing, other Gastrointestinal/Abdominal: Denies: no symptoms, abdomen distended, abdominal pain, black stools, tarry stools, blood in stool, constipated, diarrhea, difficulty swallowing, nausea, poor appetite, poor fluid intake, rectal bleeding , vomiting, other Genitourinary: Denies: no symptoms, burning, discharge, frequency, flank pain, hematuria, incontinence, pain, urgency, other Neurologic/Psychiatric: Denies: no symptoms, anxiety, depressed, emotional problems, headache, numbness, paresthesia, pre-existing deficit, seizure, tingling, tremors, weakness, other Endocrine: Denies: no symptoms, excessive sweating, flushing, intolerance to cold, intolerance to heat, increased hunger, increased thirst, increased urine, unexplained weight gain, unexplained weight loss, other Hematologic/Lymphatic: Denies: no symptoms, anemia, easy bleeding, easy bruising, other Allergies: Coded Allergies: No Known Allergies (Unverified , 02/13/18) Subjective ams and remains confursed Objective Last 24 Hour Vital Signs Date Time Temp Pulse Resp B/P (MAP) Pulse Ox O2 Delivery O2 Flow Rate FiO2 02/15/18 20:00 97.0 68 18 151/76 (101) 98 97.0 02/15/18 16:00 97.5 62 18 137/69 (91) 98 97.5 02/15/18 12:00 96.6 71 18 150/78 (102) 98 96.6 02/15/18 12:00 80 02/15/18 08:52 Room Air 02/15/18 08:39 96.4 67 18 148/72 (97) 99 96.4 02/15/18 08:00 73 02/15/18 04:00 71 02/15/18 04:00 98.1 55 18 110/62 (78) 95 98.1 02/15/18 01:24 72 02/15/18 00:00 98.0 54 18 103/64 (77) 95 98.0 Intake and Output 02/14/18 02/15/18 18:59 06:59 Intake Total 400 ml 1300 ml Output Total 0 ml Balance 400 ml 1300 ml Intake Oral 400 ml 240 ml IV Total 1060 ml Stool Total 0 ml # Voids 3 3 Laboratory Tests 02/15/18 06:35: White Blood Count 3.2L, Red Blood Count 2.58L, Hemoglobin 8.0L, Hematocrit 23.1L , Mean Corpuscular Volume 89, Mean Corpuscular Hemoglobin 30.9, Mean Corpuscular Hemoglobin Concent 34.5, Red Cell Distribution Width 12.5, Platelet Count 99L, Mean Platelet Volume 7.1, Neutrophils (%) (Auto) , Lymphocytes (%) ( Auto) , Monocytes (%) (Auto) , Eosinophils (%) (Auto) , Basophils (%) (Auto) , Differential Total Cells Counted 100, Neutrophils % (Manual) 67, Lymphocytes % ( Manual) 25, Monocytes % (Manual) 5, Eosinophils % (Manual) 2, Basophils % ( Manual) 1, Band Neutrophils 0, Platelet Estimate DecreasedL, Platelet Morphology Normal, Hypochromasia 2+, Sodium Level 141, Potassium Level 5.4H, Chloride Level 111H, Carbon Dioxide Level 27, Anion Gap 3L, Blood Urea Nitrogen 45H, Creatinine 1.6H, Estimat Glomerular Filtration Rate , Glucose Level 119H, Calcium Level 8.4L Height (Feet): 6 Height (Inches): 2.00 Weight (Pounds): 200 General Appearance: no apparent distress EENT: TMs normal Neck: supple Cardiovascular: regular rhythm Respiratory/Chest: chest wall non-tender Extremities: non-tender Edema: 1+ Leg (L), 1+ Leg (R) Edema: mild edema Neurologic: alert Skin: warm/dry Watson Adams MD Feb 15, 2018 21:09
--- NOTE | 2018-02-15 22:09 | Consultation ---
History of Present Illness General Chief Complaint: Abnormal Labs Present Illness HPI 78 year old man with history of AIDS, significant dementia, DM2, epilepsy, dyslipidemia, dementia encephalopathy who is agitated has waxing and waning, not engaged confused Allergies: Coded Allergies: No Known Allergies (Unverified , 02/13/18) Medication History Scheduled Aspirin Ec* (Aspirin Ec*), 81 MG ORAL DAILY, (Reported) Atorvastatin Calcium* (Atorvastatin Calcium*), 40 MG ORAL BEDTIME, (Reported) Docusate Sodium* (Docusate Sodium*), 100 MG ORAL DAILY, (Reported) Glipizide* (Glucotrol*), 10 MG ORAL ACBREAKFAST, (Reported) Insulin Glargine (Lantus), 30 UNITS SUBQ BEFORE BREAKFAST, (Reported) Insulin Glargine (Lantus), 10 UNITS SUBQ BEDTIME, (Reported) Levetiracetam (Keppra), 1,500 MG ORAL BID, (Reported) Levothyroxine Sodium* (Synthroid*), 25 MCG ORAL DAILY, (Reported) Lisinopril* (Lisinopril*), 10 MG ORAL DAILY, (Reported) Risperidone* (Risperdal*), 1.5 MG ORAL BID, (Reported) Sitagliptin (Januvia), 100 MG ORAL DAILY, (Reported) [Lispro 100 Units/Ml], 3 UNITS SUBQ TID, (Reported) Scheduled PRN Acetaminophen* (Acetaminophen 325MG Tablet*), 650 MG ORAL Q6H PRN for Mild Pain/ Temp > 100.5, (Reported) Miscellaneous Medications Insulin Aspart* (Novolog*), Unknown Dose SUBQ, (Reported) Patient History Limited by: medical condition History Provided By: Patient, Medical Record, PMD Healthcare decision maker Resuscitation status Full Code Advanced Directive on File No Past Medical/Surgical History Past Medical/Surgical History: (1) Hyperkalemia (2) Pancytopenia (3) Anemia (4) Unable to obtan due to encephalopathy (5) Agitation Review of Systems Psychiatric: Reports: anxiety, depressed feelings, emotional problems, hallucinations Physical Exam General Appearance: no apparent distress, alert, confused, agitated, combative Last 24 Hour Vital Signs Date Time Temp Pulse Resp B/P (MAP) Pulse Ox O2 Delivery O2 Flow Rate FiO2 9/17/18 21:00 Room Air 02/15/18 20:00 97.0 68 18 151/76 (101) 98 97.0 02/15/18 16:00 97.5 62 18 137/69 (91) 98 97.5 02/15/18 12:00 96.6 71 18 150/78 (102) 98 96.6 02/15/18 12:00 80 02/15/18 08:52 Room Air 02/15/18 08:39 96.4 67 18 148/72 (97) 99 96.4 02/15/18 08:00 73 02/15/18 04:00 71 02/15/18 04:00 98.1 55 18 110/62 (78) 95 98.1 02/15/18 01:24 72 02/15/18 00:00 98.0 54 18 103/64 (77) 95 98.0 Intake and Output 02/14/18 02/15/18 19:00 07:00 Intake Total 400 ml 1300 ml Output Total 0 ml Balance 400 ml 1300 ml Intake Oral 400 ml 240 ml IV Total 1060 ml Stool Total 0 ml # Voids 3 3 Laboratory Tests Test 02/15/18 06:35 White Blood Count 3.2 K/UL (4.8-10.8) L Red Blood Count 2.58 M/UL (4.70-6.10) L Hemoglobin 8.0 G/DL (14.2-18.0) L Hematocrit 23.1 % (42.0-52.0) L Mean Corpuscular Volume 89 FL (80-99) Mean Corpuscular Hemoglobin 30.9 PG (27.0-31.0) Mean Corpuscular Hemoglobin Concent 34.5 G/DL (32.0-36.0) Red Cell Distribution Width 12.5 % (11.6-14.8) Platelet Count 99 K/UL (150-450) L Mean Platelet Volume 7.1 FL (6.5-10.1) Neutrophils (%) (Auto) % (45.0-75.0) Lymphocytes (%) (Auto) % (20.0-45.0) Monocytes (%) (Auto) % (1.0-10.0) Eosinophils (%) (Auto) % (0.0-3.0) Basophils (%) (Auto) % (0.0-2.0) Differential Total Cells Counted 100 Neutrophils % (Manual) 67 % (45-75) Lymphocytes % (Manual) 25 % (20-45) Monocytes % (Manual) 5 % (1-10) Eosinophils % (Manual) 2 % (0-3) Basophils % (Manual) 1 % (0-2) Band Neutrophils 0 % (0-8) Platelet Estimate Decreased L Platelet Morphology Normal Hypochromasia 2+ Sodium Level 141 MMOL/L (136-145) Potassium Level 5.4 MMOL/L (3.5-5.1) H Chloride Level 111 MMOL/L (98-107) H Carbon Dioxide Level 27 MMOL/L (21-32) Anion Gap 3 mmol/L (5-15) L Blood Urea Nitrogen 45 mg/dL (7-18) H Creatinine 1.6 MG/DL (0.55-1.30) H Estimat Glomerular Filtration Rate mL/min (>60) Glucose Level 119 MG/DL (74-106) H Calcium Level 8.4 MG/DL (8.5-10.1) L Height (Feet): 6 Height (Inches): 2.00 Weight (Pounds): 200 Medications Current Medications Medications (Trade) Dose Ordered Sig/Yoandy Route PRN Reason Start Time Stop Time Status Last Admin Dose Admin Acetaminophen (Tylenol) 650 mg Q6HR PRN ORAL Mild Pain (Pain Scale 1-3) 02/14/18 01:00 03/16/18 00:59 Aspirin (Ecotrin) 81 mg DAILY ORAL 02/14/18 09:00 03/16/18 08:59 02/15/18 08:32 Atorvastatin Calcium (Lipitor) 40 mg BEDTIME ORAL 02/14/18 21:00 03/16/18 20:59 02/15/18 20:21 Dextrose (Dextrose 50%) 25 ml STAT PRN IV Hypoglycemia 02/14/18 01:00 03/16/18 00:59 Dextrose (Dextrose 50%) 50 ml STAT PRN IV Hypoglycemia 02/14/18 01:00 03/16/18 00:59 Docusate Sodium (Colace) 100 mg DAILY ORAL 02/14/18 09:00 03/16/18 08:59 02/15/18 08:32 Haloperidol Lactate (Haldol) 5 mg Q6H PRN IM Agitation 02/15/18 11:30 03/17/18 11:29 02/15/18 14:20 Insulin Aspart (NovoLOG) BEFORE MEALS AND HS SUBQ 02/14/18 06:30 03/16/18 06:29 02/15/18 20:22 Insulin Detemir (Levemir) 10 units DAILY@2100 SUBQ 02/14/18 21:00 03/16/18 20:59 02/15/18 20:22 Levetiracetam 100 ml @ 400 mls/hr Q12H IVPB 02/16/18 03:00 03/18/18 02:59 Levetiracetam 100 ml @ 400 mls/hr Q12H IVPB 02/16/18 03:15 03/18/18 03:14 Levothyroxine Sodium (Synthroid) 25 mcg ACBREAKFAST ORAL 02/14/18 06:30 03/16/18 06:29 02/15/18 06:31 Lorazepam (Ativan 2mg/ml 1ml) 1 mg Q4H PRN IM For Anxiety 02/15/18 11:00 02/22/18 10:59 02/15/18 17:55 Olanzapine (ZyPREXA) 5 mg BEDTIME ORAL 02/15/18 21:00 03/17/18 20:59 02/15/18 20:20 Assessment/Plan Assessment/Plan encephalopathy due to [facility] [place] with behavioral disturbance Zyprexa prn ativan prn Joey Matson MD Feb 15, 2018 22:09
[2018-02-16] VITALS: BP 163/74
[2018-02-16] MEDS ORDERED: levETIRAcetam 1,000mg/NS100ml IVPB SCH (03:00)
[2018-02-16] MEDS ORDERED: levETIRAcetam 500mg/NS100ml IVPB SCH (03:15)
[2018-02-16 04:00] VITALS: BP 154/81
[2018-02-16] MEDS: Levothyroxine 25mcg tab ORAL SCH (06:05)
[2018-02-16] MEDS: NovoLOG Insulin Flexpen SUBQ SCH ×4 (06:07→21:00)
[2018-02-16 07:20] LABS: HEMATOCRIT 21.2 % (42.0-52.0); HEMOGLOBIN 7.4 G/DL (14.2-18.0); MEAN CORPUSCULAR VOLUME 88 FL (80-99); PLATELET COUNT 78 K/UL (150-450); RED BLOOD COUNT 2.42 M/UL (4.70-6.10); RED CELL DISTRIBUTION WIDTH 12.1 % (11.6-14.8); WHITE BLOOD COUNT 2.4 K/UL (4.8-10.8)
[2018-02-16 07:33] LABS: ANION GAP 4 mmol/L (5-15); BLOOD UREA NITROGEN 33 mg/dL (7-18); CALCIUM 8.4 MG/DL (8.5-10.1); CARBON DIOXIDE 27 MMOL/L (21-32); CHLORIDE 111 MMOL/L (98-107); CREATININE 1.5 MG/DL (0.55-1.30); POTASSIUM 4.6 MMOL/L (3.5-5.1); SODIUM 142 MMOL/L (136-145)
[2018-02-16 07:50] VITALS: BP 140/66
[2018-02-16] MEDS: Aspirin EC 81mg tab ORAL SCH (08:46)
[2018-02-16] MEDS: Docusate 100mg cap ORAL SCH (08:47)
[2018-02-16] MEDS: Haloperidol 5mg/ml Inj IM PRN (10:24)
--- NOTE | 2018-02-16 10:35 | General Progress Note ---
Assessment/Plan Assessment/Plan Assessment/Recs: # Pancytopenia - potentially related initially to sepsis, also could be related to large spleen --> hepatitis and hiv ordered, us of the abdomen shows spenomegaly that is enlarged spleen --> anemia panel ordered as well, ferritin, tibc, folic acid, tsh, occult blood- -> consistent with anemia of chronic disease --> peripheral smear reviewed and shows no significant abnml --> r/o infectious etiology, cultures have been negative thus far --> rectum no vre is present # Anemia of chronic disease - consistent with above diagnosis --> anemia panel reviewed # Acute encephalopathy superimposed on chronic dementia, also exacerbated by sedative medications given for agitation. Unclear etiology, could be related to mild AGUILAR present on admission or occult infection. --> avoid benzos, frequent orienting, fall, aspiration precautions. Correct underlying AGUILAR. --> Psychiatry consulted. appreciate recs # Mild AGUILAR, unknown etiology, improved, continue with IV fluids and repeat BMP in AM. --> Avoid nephrotic meds # Hyperkalemia, potassium has improved from 5.7 to 5.0, continue to monitor daily potassium levels # History of epilepsy, will give Keppra intravenously as he is unable to take PO meds due to lethargy # type 2 DM, controlled, hold oral diabetic meds while oral intake is minimal, will give reduced dose Lantus # Hypothyroidism, continue levothyroxine - can give intravenously if he remains lethargic. # Azotemia has been reviewed # DVT ppx is ok with heparin if plt >50k GREATLY APPRECIATE CONSULTATION. Subjective Constitutional: Denies: no symptoms, chills, diaphoresis, fever, malaise, weakness, other HEENT: Denies: no symptoms, eye pain, blurred vision, tearing, double vision, ear pain, ear discharge, nose pain, nose congestion, throat pain, throat swelling, mouth pain, mouth swelling, other Cardiovascular: Denies: no symptoms, chest pain, edema, irregular heart rate, lightheadedness, palpitations, syncope, other Respiratory: Denies: no symptoms, cough, orthopnea, shortness of breath, SOB with excertion, SOB at rest, sputum, stridor, wheezing, other Gastrointestinal/Abdominal: Denies: no symptoms, abdomen distended, abdominal pain, black stools, tarry stools, blood in stool, constipated, diarrhea, difficulty swallowing, nausea, poor appetite, poor fluid intake, rectal bleeding , vomiting, other Genitourinary: Denies: no symptoms, burning, discharge, frequency, flank pain, hematuria, incontinence, pain, urgency, other Neurologic/Psychiatric: Denies: no symptoms, anxiety, depressed, emotional problems, headache, numbness, paresthesia, pre-existing deficit, seizure, tingling, tremors, weakness, other Endocrine: Denies: no symptoms, excessive sweating, flushing, intolerance to cold, intolerance to heat, increased hunger, increased thirst, increased urine, unexplained weight gain, unexplained weight loss, other Allergies: Coded Allergies: No Known Allergies (Unverified , 02/13/18) Subjective ams, bs is low, more altered Objective Last 24 Hour Vital Signs Date Time Temp Pulse Resp B/P (MAP) Pulse Ox O2 Delivery O2 Flow Rate FiO2 02/16/18 08:54 Room Air 02/16/18 08:00 54 02/16/18 07:50 96.3 57 20 140/66 (90) 98 96.3 02/16/18 05:37 47 02/16/18 04:00 97.7 71 18 154/81 (105) 98 97.7 02/16/18 00:00 98.1 74 18 163/74 (103) 99 98.1 02/15/18 21:00 Room Air 02/15/18 20:00 97.0 68 18 151/76 (101) 98 97.0 02/15/18 16:00 97.5 62 18 137/69 (91) 98 97.5 02/15/18 12:00 96.6 71 18 150/78 (102) 98 96.6 02/15/18 12:00 80 Intake and Output 02/15/18 02/16/18 19:00 07:00 Intake Total 420 ml 940 ml Balance 420 ml 940 ml Intake Oral 320 ml 240 ml IV Total 100 ml 700 ml # Voids 4 5 # Bowel Movements 5 Laboratory Tests 02/16/18 06:40: White Blood Count 2.4L, Red Blood Count 2.42L, Hemoglobin 7.4L, Hematocrit 21.2L , Mean Corpuscular Volume 88, Mean Corpuscular Hemoglobin 30.6, Mean Corpuscular Hemoglobin Concent 34.8, Red Cell Distribution Width 12.1, Platelet Count 78L, Mean Platelet Volume 7.6, Neutrophils (%) (Auto) , Lymphocytes (%) ( Auto) , Monocytes (%) (Auto) , Eosinophils (%) (Auto) , Basophils (%) (Auto) , Neutrophils % (Manual) [Pending], Lymphocytes % (Manual) [Pending], Platelet Estimate [Pending], Platelet Morphology [Pending], Sodium Level 142, Potassium Level 4.6, Chloride Level 111H, Carbon Dioxide Level 27, Anion Gap 4L, Blood Urea Nitrogen 33H, Creatinine 1.5H, Estimat Glomerular Filtration Rate , Glucose Level 71L, Calcium Level 8.4L Height (Feet): 6 Height (Inches): 2.00 Weight (Pounds): 200 General Appearance: no apparent distress EENT: TMs normal Neck: supple Cardiovascular: regular rhythm Respiratory/Chest: normal breath sounds Genitourinary/Rectal: heme negative stool Extremities: normal inspection Edema: 1+ Leg (L), 1+ Leg (R) Edema: mild edema Neurologic: alert Watson Adams MD Feb 16, 2018 10:35
[2018-02-16] MEDS: LORazepam Inj 2mg/ml 1ml IM PRN ×2 (10:52→17:51)
[2018-02-16 12:00] VITALS: BP 133/71
--- NOTE | 2018-02-16 13:38 | General Progress Note ---
Assessment/Plan Assessment/Plan Acute encephalopathy superimposed on chronic dementia, likely multifactorial, improving, continue supportive care. Acute on chronic anemia, pancytopenia, without evidence of major bleeding, Hb is 7.4 so will transfuse 1 unit of PRBC per my discussion with Hematology. Check CBC in AM. Mild AGUILAR, improving. Hyperkalemia, resolved. history of epilepsy, continue Keppra type 2 DM, controlled, controlled, continue Levemir 10 units daily Hypothyroidism, continue levothyroxine Subjective Date patient seen: Feb 16, 2018 Time patient seen: 13:36 ROS Limited/Unobtainable: Yes Allergies: Coded Allergies: No Known Allergies (Unverified , 02/13/18) Subjective Medicine followup for pancytopenia, acute metabolic encephalopathy, AGUILAR, hyperkalemia. Less agitated but remains confused. No bleeding reported by nursing. Objective Last 24 Hour Vital Signs Date Time Temp Pulse Resp B/P (MAP) Pulse Ox O2 Delivery O2 Flow Rate FiO2 02/16/18 08:54 Room Air 02/16/18 08:00 54 02/16/18 07:50 96.3 57 20 140/66 (90) 98 96.3 02/16/18 05:37 47 02/16/18 04:00 97.7 71 18 154/81 (105) 98 97.7 02/16/18 00:00 98.1 74 18 163/74 (103) 99 98.1 02/15/18 21:00 Room Air 02/15/18 20:00 97.0 68 18 151/76 (101) 98 97.0 02/15/18 16:00 97.5 62 18 137/69 (91) 98 97.5 Intake and Output 02/15/18 02/16/18 19:00 07:00 Intake Total 420 ml 940 ml Balance 420 ml 940 ml Intake Oral 320 ml 240 ml IV Total 100 ml 700 ml # Voids 4 5 # Bowel Movements 5 Laboratory Tests 02/16/18 06:40: White Blood Count 2.4L, Red Blood Count 2.42L, Hemoglobin 7.4L, Hematocrit 21.2L , Mean Corpuscular Volume 88, Mean Corpuscular Hemoglobin 30.6, Mean Corpuscular Hemoglobin Concent 34.8, Red Cell Distribution Width 12.1, Platelet Count 78L, Mean Platelet Volume 7.6, Neutrophils (%) (Auto) , Lymphocytes (%) ( Auto) , Monocytes (%) (Auto) , Eosinophils (%) (Auto) , Basophils (%) (Auto) , Differential Total Cells Counted 100, Neutrophils % (Manual) 59, Lymphocytes % ( Manual) 35, Monocytes % (Manual) 4, Eosinophils % (Manual) 1, Basophils % ( Manual) 1, Band Neutrophils 0, Platelet Estimate Adequate, Platelet Morphology Normal, Hypochromasia 3+, Anisocytosis 1+, Spherocytes 1+, Sodium Level 142, Potassium Level 4.6, Chloride Level 111H, Carbon Dioxide Level 27, Anion Gap 4L , Blood Urea Nitrogen 33H, Creatinine 1.5H, Estimat Glomerular Filtration Rate , Glucose Level 71L, Calcium Level 8.4L Height (Feet): 6 Height (Inches): 2.00 Weight (Pounds): 200 General Appearance: alert, confused Neck: supple Cardiovascular: normal rate, regular rhythm Respiratory/Chest: lungs clear, normal breath sounds Abdomen: non tender, soft, no organomegaly Gavino Amaya MD Feb 16, 2018 13:38
--- NOTE | 2018-02-16 14:10 | General Progress Note ---
Assessment/Plan Assessment/Plan encephalopathy due to [facility] [place] with behavioral disturbance dc Zyprexa prn ativan prn seroquel qhs dc sitter Subjective Date patient seen: Feb 16, 2018 Neurologic/Psychiatric: Reports: anxiety, depressed, emotional problems Allergies: Coded Allergies: No Known Allergies (Unverified , 02/13/18) Subjective the pt has a sitter meds were not given per nurse the pt has been asleep all morning and meds were not needed. Objective Last 24 Hour Vital Signs Date Time Temp Pulse Resp B/P (MAP) Pulse Ox O2 Delivery O2 Flow Rate FiO2 02/16/18 08:54 Room Air 02/16/18 08:00 54 02/16/18 07:50 96.3 57 20 140/66 (90) 98 96.3 02/16/18 05:37 47 02/16/18 04:00 97.7 71 18 154/81 (105) 98 97.7 02/16/18 00:00 98.1 74 18 163/74 (103) 99 98.1 02/15/18 21:00 Room Air 02/15/18 20:00 97.0 68 18 151/76 (101) 98 97.0 02/15/18 16:00 97.5 62 18 137/69 (91) 98 97.5 Intake and Output 02/15/18 02/16/18 19:00 07:00 Intake Total 420 ml 940 ml Balance 420 ml 940 ml Intake Oral 320 ml 240 ml IV Total 100 ml 700 ml # Voids 4 5 # Bowel Movements 5 Laboratory Tests 02/16/18 06:40: White Blood Count 2.4L, Red Blood Count 2.42L, Hemoglobin 7.4L, Hematocrit 21.2L , Mean Corpuscular Volume 88, Mean Corpuscular Hemoglobin 30.6, Mean Corpuscular Hemoglobin Concent 34.8, Red Cell Distribution Width 12.1, Platelet Count 78L, Mean Platelet Volume 7.6, Neutrophils (%) (Auto) , Lymphocytes (%) ( Auto) , Monocytes (%) (Auto) , Eosinophils (%) (Auto) , Basophils (%) (Auto) , Differential Total Cells Counted 100, Neutrophils % (Manual) 59, Lymphocytes % ( Manual) 35, Monocytes % (Manual) 4, Eosinophils % (Manual) 1, Basophils % ( Manual) 1, Band Neutrophils 0, Platelet Estimate Adequate, Platelet Morphology Normal, Hypochromasia 3+, Anisocytosis 1+, Spherocytes 1+, Sodium Level 142, Potassium Level 4.6, Chloride Level 111H, Carbon Dioxide Level 27, Anion Gap 4L , Blood Urea Nitrogen 33H, Creatinine 1.5H, Estimat Glomerular Filtration Rate , Glucose Level 71L, Calcium Level 8.4L Height (Feet): 6 Height (Inches): 2.00 Weight (Pounds): 200 General Appearance: no apparent distress, alert, confused, agitated Joey Matson MD Feb 16, 2018 14:10
[2018-02-16] MEDS ORDERED: LORazepam Inj 2mg/ml 1ml IM PRN (14:52)
[2018-02-16] MEDS ORDERED: levETIRAcetam 1,500 MG in D5W 95 ML IV SCH ×4 (15:00)
[2018-02-16 16:00] VITALS: BP 137/63
[2018-02-16] MEDS ORDERED: Haloperidol 5mg/ml Inj IM PRN (17:30)
[2018-02-16 20:00] VITALS: BP 170/85
[2018-02-16] MEDS ORDERED: Levemir Flexpen SUBQ SCH (21:00)
[2018-02-16] MEDS ORDERED: Atorvastatin 20mg tab ORAL SCH (21:00)
[2018-02-17] VITALS: BP 170/87
[2018-02-17] MEDS: LORazepam Inj 2mg/ml 1ml IM PRN (01:31)
[2018-02-17] MEDS: levETIRAcetam 1,500 MG in D5W 95 ML IV SCH ×2 (01:31→14:45)
[2018-02-17 04:00] VITALS: BP 158/85
[2018-02-17 06:08] LABS: HEMATOCRIT 25.8 % (42.0-52.0); HEMOGLOBIN 8.9 G/DL (14.2-18.0); MEAN CORPUSCULAR VOLUME 88 FL (80-99); PLATELET COUNT 84 K/UL (150-450); RED BLOOD COUNT 2.92 M/UL (4.70-6.10); RED CELL DISTRIBUTION WIDTH 12.3 % (11.6-14.8); WHITE BLOOD COUNT 3.4 K/UL (4.8-10.8)
[2018-02-17] MEDS: NovoLOG Insulin Flexpen SUBQ SCH ×3 (06:10→16:30)
[2018-02-17] MEDS: Levothyroxine 25mcg tab ORAL SCH ×2 (06:10→06:18)
[2018-02-17 06:46] LABS: ANION GAP 4 mmol/L (5-15); BLOOD UREA NITROGEN 27 mg/dL (7-18); CARBON DIOXIDE 29 MMOL/L (21-32); CHLORIDE 109 MMOL/L (98-107); CREATININE 1.5 MG/DL (0.55-1.30); POTASSIUM 4.8 MMOL/L (3.5-5.1); SODIUM 142 MMOL/L (136-145)
[2018-02-17 08:00] VITALS: BP 139/75
[2018-02-17] MEDS ORDERED: Docusate 100mg cap ORAL SCH (09:00)
[2018-02-17] MEDS ORDERED: Aspirin EC 81mg tab ORAL SCH (09:00)
[2018-02-17] MEDS ORDERED: Lisinopril 10mg tab ORAL SCH (09:00)
--- NOTE | 2018-02-17 11:54 | General Progress Note ---
Assessment/Plan Status: unchanged Assessment/Plan encephalopathy due [place] [facility] [place] with behavioral disturbance dc Zyprexa prn ativan prn seroquel qhs dc sitter Subjective Date patient seen: Feb 17, 2018 Neurologic/Psychiatric: Reports: anxiety, depressed, emotional problems Allergies: Coded Allergies: No Known Allergies (Unverified , 02/13/18) Subjective the pt is either lethargic or agitated Objective Last 24 Hour Vital Signs Date Time Temp Pulse Resp B/P (MAP) Pulse Ox O2 Delivery O2 Flow Rate FiO2 02/17/18 09:00 Room Air 02/17/18 08:00 97.7 57 22 139/75 (96) 99 97.7 02/17/18 04:00 97.0 85 19 158/85 (109) 98 97.0 02/17/18 00:00 97.2 80 18 170/87 (114) 98 97.2 02/16/18 21:00 Room Air 02/16/18 20:00 97.5 86 17 170/85 (113) 97 97.5 02/16/18 16:00 97.1 62 20 137/63 (87) 98 97.1 02/16/18 12:00 96.8 69 20 133/71 (91) 98 96.8 Intake and Output 02/16/18 02/17/18 19:00 07:00 Intake Total 375 ml 480 ml Output Total 550 ml Balance -175 ml 480 ml Intake Oral 375 ml 480 ml Output Urine Total 550 ml # Voids 3 Laboratory Tests 02/17/18 05:30: White Blood Count 3.4L, Red Blood Count 2.92L, Hemoglobin 8.9L, Hematocrit 25.8L , Mean Corpuscular Volume 88, Mean Corpuscular Hemoglobin 30.5, Mean Corpuscular Hemoglobin Concent 34.6, Red Cell Distribution Width 12.3, Platelet Count 84L, Mean Platelet Volume 7.4, Neutrophils (%) (Auto) , Lymphocytes (%) ( Auto) , Monocytes (%) (Auto) , Eosinophils (%) (Auto) , Basophils (%) (Auto) , Differential Total Cells Counted 100, Neutrophils % (Manual) 62, Lymphocytes % ( Manual) 27, Monocytes % (Manual) 2, Eosinophils % (Manual) 2, Basophils % ( Manual) 0, Band Neutrophils 7, Platelet Estimate DecreasedL, Platelet Morphology Normal, Hypochromasia 1+, Sodium Level 142, Potassium Level 4.8, Chloride Level 109H, Carbon Dioxide Level 29, Anion Gap 4L, Blood Urea Nitrogen 27H, Creatinine 1.5H, Estimat Glomerular Filtration Rate , Glucose Level 62L, Calcium Level 9.0 Height (Feet): 6 Height (Inches): 2.00 Weight (Pounds): 182 General Appearance: no apparent distress, lethargic, confused, agitated Joey Matson MD Feb 17, 2018 11:54
[2018-02-17 12:00] VITALS: BP 115/66
[2018-02-17] MEDS ORDERED: SEROQUEL25 MG ORAL (13:19)
--- NOTE | 2018-02-17 13:32 | Discharge Summary ---
Discharge Summary Hospital Course Date of Admission Feb 13, 2018 at 22:54 Date of Discharge 02/17/18 Admitting Diagnosis anemia, generalized weakness HPI Chip Laureano is a 78 year old male who was admitted on Feb 13, 2018 at 22:54 for Anemia,Generalized Weakness Consultations Psychiatry, Hematology Hospital Course Patient presented from the senior care with AMS, admitted to the medical service with acute metabolic encephalopathy secondary to AGUILAR with elevated creatinine of 1.9, treated with IV fluids with improvement in mental status and renal function. He was seen by Hematology for pancytopenia and blood counts have remained stable, he did not require PRBC or platelet transfusion but will need to follow up with Dr. Adams as an outpatient. Also, he was seen by Psychiatry and started on Seroquel. Discharge Medications New Medications: Quetiapine Fumarate* (Seroquel*) 25 Mg Tablet 25 MG ORAL Q12HR for 5 Days, #10 TAB Continued Medications: Acetaminophen* (Acetaminophen 325MG Tablet*) 325 Mg Tablet 650 MG ORAL Q6H PRN for Mild Pain/Temp > 100.5, TAB Aspirin Ec* (Aspirin Ec*) 81 Mg Tablet.dr 81 MG ORAL DAILY, TAB Atorvastatin Calcium* (Atorvastatin Calcium*) 40 Mg Tablet 40 MG ORAL BEDTIME, TAB Docusate Sodium* (Docusate Sodium*) 100 Mg Capsule 100 MG ORAL DAILY, CAP Glipizide* (Glucotrol*) 10 Mg Tablet 10 MG ORAL ACBREAKFAST, #10 TAB 0 Refills Insulin Aspart* (Novolog*) 100 Unit/1 Ml Insuln.pen Unknown Dose SUBQ, #1 EA 0 Refills Insulin Glargine (Lantus) 100 Unit/1 Ml Insuln.pen 30 UNITS SUBQ BEFORE BREAKFAST, #1 EA 0 Refills Insulin Glargine (Lantus) 100 Unit/1 Ml Insuln.pen 10 UNITS SUBQ BEDTIME, #1 EA 0 Refills Levetiracetam (Keppra) 750 Mg Tablet 1500 MG ORAL BID for SEIZURES, TAB Levothyroxine Sodium* (Synthroid*) 25 Mcg Tablet 25 MCG ORAL DAILY, TAB Take in the morning on an empty stomach, at least 30 minutes before food. Lisinopril* (Lisinopril*) 10 Mg Tablet 10 MG ORAL DAILY, TAB [Lispro 100 Units/Ml] () 3 UNITS SUBQ TID Risperidone* (Risperdal*) 0.5 Mg Tablet 1.5 MG ORAL BID, #30 TAB 0 Refills Sitagliptin (Januvia) 100 Mg Tablet 100 MG ORAL DAILY, TAB Discharge Condition Upon Discharge: improving Discharge Disposition Patient was discharged to [facility] Discharge Diagnoses: (1) AGUILAR (acute kidney injury) (2) Acute metabolic encephalopathy (3) Pancytopenia (4) Hyperkalemia Gavino Amaya MD Feb 17, 2018 13:32
[2018-02-17 16:00] VITALS: BP 115/56
== END 2018-02-17 17:38 | DRG 890 ==
LOC: EDBD 19:55 → EMR 20:05 → 2E 22:54 → EDBEDREQ 23:48 → 2E 02-14 00:32 → 4E 02-16 14:40
DX: N17.9 Acute kidney failure, unspecified (principal); B20 Human immunodeficiency virus [HIV] disease; G93.41 Metabolic encephalopathy; D61.818 Other pancytopenia; E87.5 Hyperkalemia; D64.9 Anemia, unspecified; E11.9 Type 2 diabetes mellitus without complications; F03.91 Unspecified dementia, unspecified severity, with behavioral disturbance; Z79.4 Long term (current) use of insulin; G40.909 Epilepsy, unspecified, not intractable, without status epilepticus; E03.9 Hypothyroidism, unspecified; F99 Mental disorder, not otherwise specified
CPT/HCPCS: 36415; 76700; 80048; 80053; 82378; 82728; 82746; 82962; 83090; 83540; 83550; 83615; 84165; 85007; 85025; 85060; 85610; 85730; 86703; 86705; 86709; 86803; 86850; 86900; 86901; 86920; 87081; 87340; 92610; 93005; 96361; 96374; 96375; 99285; J1815; S5561

== ENCOUNTER 2018-03-01 22:06 | Inpatient (IN) | payer MEDICARE, OTHER ==
[~2018-03-01] VITALS: Ht 188 cm; Wt 101.8 kg
[~2018-03-01 22:06] MED LIST: ACETAMINOPHEN325 M1 ORAL; ASPIRIN EC81 MG ORAL; ATORVASTATIN CA40 MG ORAL; DOCUSATE SODIU100 MG ORAL; GLUCOTROL10 MG ORAL; INSULIN LISPRO 100 UNIT/ML SUBQ; JANUVIA100 MG ORAL; KEPPRA750 MG ORAL; LANTUS SOL100 UNIT/1 SUBQ; LISINOPRIL10 MG ORAL; NOVOLOG100 UNIT/3 SUBQ; RISPERDAL0.5 MG ORAL; SEROQUEL25 MG ORAL; SYNTHROID25 MCG ORAL
--- NOTE | 2018-03-01 22:17 | Emergency Room Report ---
History of Present Illness General Chief Complaint: Altered Level of Consciousness Source: Patient, Medical Record, EMS Present Illness HPI Is a 78-year-old male coming from jail. 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 He presents with chief complaint of increasing weakness and failure to thrive. Onset for last 4 days. He said he fell 3 days ago. No head injury. No nausea no vomiting. Has left arm pain. No fever or chills. Denies any other complaint. No focal deficit. Pain is 3 out of 10. Allergies: Coded Allergies: No Known Allergies (Unverified , 02/13/18) Patient History Past Medical History: see triage record, old chart reviewed, DM, HTN, CVA/TIA Past Surgical History: other Pertinent Family History: none Social History: Denies: smoking Immunizations: other Reviewed Nursing Documentation: PMH: Agreed; PSxH: Agreed Nursing Documentation-PMH Hx Hypertension: Yes Hx Diabetes: Yes Hx Cerebrovascular Accident: Yes - left Hx Seizures: Yes Review of Systems Eye: Denies: eye pain, blurred vision ENT: Denies: ear pain, nose congestion, throat swelling Respiratory: Denies: cough, shortness of breath Cardiovascular: Denies: chest pain, palpitations Gastrointestinal: Denies: abdominal pain, diarrhea, nausea, vomiting Musculoskeletal: Denies: back pain, joint pain Skin: Denies: rash Neurological: Denies: headache, numbness Endocrine: Denies: increased thirst, increased urine Hematologic/Lymphatic: Denies: easy bruising All Other Systems: negative except mentioned in HPI Physical Exam Vital Signs Date Time Temp Pulse Resp B/P (MAP) Pulse Ox O2 Delivery O2 Flow Rate FiO2 03/01/18 22:06 98.2 83 18 150/61 98 Room Air 98.2 vitals with high blood pressure Sp02 EP Interpretation: reviewed, normal General Appearance: no apparent distress, alert, Chronically Ill Head: normocephalic, atraumatic Eyes: bilateral eye PERRL, bilateral eye EOMI ENT: hearing grossly normal, normal pharynx Neck: full range of motion, supple, no meningismus Respiratory: chest non-tender, lungs clear, normal breath sounds Cardiovascular #1: regular rate, rhythm, no murmur Gastrointestinal: normal bowel sounds, non tender, no mass, no organomegaly, no bruit, non-distended Musculoskeletal: back normal Neurologic: other - left-sided weakness Psychiatric: mood/affect normal Skin: warm/dry Medical Decision Making Diagnostic Impression: Primary Impression: FTT (failure to thrive) in adult Additional Impressions: Anemia Qualified Codes: D64.9 - Anemia, unspecified AGUILAR (acute kidney injury) UTI (urinary tract infection) Qualified Codes: N30.00 - Acute cystitis without hematuria ER Course Patient with generalize weakness and failure to thrive. This is secondary to infection from UTI. Antibiotic started. No evidence of sepsis. He is anemic but at baseline. He is also dehydrated with AGUILAR. IV fluid given. Will admit for further workup. Discussed the case with Dr. Uribe who will admit for Dr. Gandara. Lab Results Impression labs with anemia and AGUILAR. EKG Diagnostic Results Rate: normal Rhythm: NSR ST Segments: other - NSST changes Rhythm Strip Diag. Results Rhythm Strip Time: 22:34 EP Interpretation: yes Rate: 85 Rhythm: NSR, no PVC's, no ectopy Chest X-Ray Diagnostic Results Chest X-Ray Diagnostic Results : Chest X-Ray Ordered: Yes # of Views/Limited/Complete: 1 View Indication: Shortness of Breath EP Interpretation: Yes Interpretation: no consolidation, no effusion, no pneumothorax, no acute cardiopulmonary disease Impression: No acute disease Electronically Signed by: Ambrose Blankenship MD CT/MRI/US Diagnostic Results CT/MRI/US Diagnostic Results : Imaging Test Ordered: CT head Impression Read by radiologist as NAD. Last Vital Signs Date Time Temp Pulse Resp B/P (MAP) Pulse Ox O2 Delivery O2 Flow Rate FiO2 03/01/18 22:06 98.2 83 18 150/61 98 Room Air 98.2 Status: improved Disposition: ADMITTED INPATIENT Condition: Serious Ambrose Blankenship MD Mar 01, 2018 22:17
[2018-03-01 22:54] LABS: HEMATOCRIT 20.6 % (42.0-52.0); HEMOGLOBIN 7.1 G/DL (14.2-18.0); MEAN CORPUSCULAR VOLUME 93 FL (80-99); PLATELET COUNT 100 K/UL (150-450); RED BLOOD COUNT 2.22 M/UL (4.70-6.10); RED CELL DISTRIBUTION WIDTH 14.5 % (11.6-14.8); WHITE BLOOD COUNT 3.9 K/UL (4.8-10.8)
[2018-03-01 23:08] LABS: ANION GAP 7 mmol/L (5-15); BLOOD UREA NITROGEN 43 mg/dL (7-18); CALCIUM 8.4 MG/DL (8.5-10.1); CARBON DIOXIDE 27 MMOL/L (21-32); CHLORIDE 109 MMOL/L (98-107); CREATININE 2.3 MG/DL (0.55-1.30); POTASSIUM 4.8 MMOL/L (3.5-5.1); SODIUM 143 MMOL/L (136-145)
[2018-03-01 23:13] LABS: ALANINE AMINOTRANSFERASE 35 U/L (12-78); ALBUMIN 2.6 G/DL (3.4-5.0); ALBUMIN/GLOBULIN RATIO 0.7 (1.0-2.7); ALKALINE PHOSPHATASE 88 U/L (46-116); ASPARTATE AMINO TRANSFERASE 18 U/L (15-37); BILIRUBIN,TOTAL 0.3 MG/DL (0.2-1.0)
[2018-03-01 23:33] LABS: APPEARANCE,URINE CLEAR; BILIRUBIN, URINE NEGATIVE (NEGATIVE); COLOR,URINE PALE YELLOW; GLUCOSE, URINE (UA) NEGATIVE (NEGATIVE); KETONES,URINE NEGATIVE (NEGATIVE); LEUKOCYTE ESTERASE ,URINE 1+ (NEGATIVE); NITRITE,URINE NEGATIVE (NEGATIVE); PH,URINE 5 (4.5-8.0); PROTEIN,URINE 3+ (NEGATIVE); UROBILINOGEN,URINE NORMAL MG/DL (0.0-1.0)
[2018-03-01 23:50] VITALS: BP 146/57
[2018-03-02] MEDS ORDERED: cefTRIAXone 1 GM in D5W 55 ML IVPB ONE ×2
[2018-03-02 01:00] VITALS: BP 130/52
[2018-03-02 04:00] VITALS: BP 108/58
[2018-03-02] MEDS: NovoLOG Insulin Flexpen SUBQ SCH ×4 (06:18→21:05)
[2018-03-02 06:55] LABS: HEMATOCRIT 19.4 % (42.0-52.0); MEAN CORPUSCULAR VOLUME 93 FL (80-99); PLATELET COUNT 79 K/UL (150-450); RED BLOOD COUNT 2.09 M/UL (4.70-6.10); RED CELL DISTRIBUTION WIDTH 14.3 % (11.6-14.8); WHITE BLOOD COUNT 3.2 K/UL (4.8-10.8)
[2018-03-02 07:09] LABS: ANION GAP 5 mmol/L (5-15); BLOOD UREA NITROGEN 44 mg/dL (7-18); CARBON DIOXIDE 27 MMOL/L (21-32); CHLORIDE 110 MMOL/L (98-107); CREATININE 2.1 MG/DL (0.55-1.30); POTASSIUM 4.7 MMOL/L (3.5-5.1); SODIUM 142 MMOL/L (136-145)
[2018-03-02 07:21] LABS: HEMOGLOBIN 6.4 G/DL (14.2-18.0)
--- NOTE | 2018-03-02 07:42 | Consultation ---
Consult Note Consult Note Hematology Consult DOS: 03/02/2018 REQ MD: Rony Gandara RFC: Anemia eval ID: 78-year-old male coming from prison. 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 He presents with chief complaint of increasing weakness and failure to thrive. Onset for last 4 days. He said he fell 3 days ago. No head injury. No nausea no vomiting. Has left arm pain. No fever or chills. Denies any other complaint. No focal deficit. Pain is 3 out of 10. Allergies: No Known Allergies (Unverified , 02/13/18) Patient History Past Medical History: see triage record, old chart reviewed, DM, HTN, CVA/TIA Past Surgical History: other Pertinent Family History: none Social History: Denies: smoking Immunizations: other Reviewed Nursing Documentation: PMH: Agreed; PSxH: Agreed Hx Hypertension: Yes Hx Diabetes: Yes Hx Cerebrovascular Accident: Yes - left Hx Seizures: Yes ER ROS - General Review of Systems Eye: Denies: eye pain, blurred vision ENT: Denies: ear pain, nose congestion Respiratory: Denies: cough Cardiovascular: Denies: chest pain Gastrointestinal: Denies: abdominal pain Musculoskeletal: Denies: back pain, joint pain Skin: Denies: rash Neurological: Denies: headache, numbness Endocrine: Denies: increased thirst Hematologic/Lymphatic: Denies: easy bruising Physical Exam Vital Signs Date Time Temp Pulse Resp B/P (MAP) Pulse Ox O2 Delivery O2 Flow Rate FiO2 03/01/18 22:06 98.2 83 18 150/61 98 Room Air 98.2 vitals with high blood pressure Sp02 EP Interpretation: reviewed, normal General Appearance: no apparent distress, alert, Chronically Ill Head: normocephalic, atraumatic Eyes: bilateral eye PERRL, bilateral eye EOMI ENT: hearing grossly normal, normal pharynx Neck: full range of motion, supple, no meningismus Respiratory: chest non-tender, lungs clear, normal BS Cardiovascular #1: regular rate, rhythm, no murmur Gastrointestinal: normal bowel sounds Musculoskeletal: back normal Neurologic: other - left-sided weakness Psychiatric: mood/affect normal Skin: warm/dry Laboratory Tests Test 03/01/18 22:40 03/02/18 05:30 White Blood Count 3.9 K/UL (4.8-10.8) L 3.2 K/UL (4.8-10.8) L Red Blood Count 2.22 M/UL (4.70-6.10) L 2.09 M/UL (4.70-6.10) L Hemoglobin 7.1 G/DL (14.2-18.0) L 6.4 G/DL (14.2-18.0) *L Hematocrit 20.6 % (42.0-52.0) L 19.4 % (42.0-52.0) L Mean Corpuscular Volume 93 FL (80-99) 93 FL (80-99) Mean Corpuscular Hemoglobin 32.1 PG (27.0-31.0) H 30.6 PG (27.0-31.0) Mean Corpuscular Hemoglobin Concent 34.7 G/DL (32.0-36.0) 33.1 G/DL (32.0-36.0) Red Cell Distribution Width 14.5 % (11.6-14.8) 14.3 % (11.6-14.8) Platelet Count 100 K/UL (150-450) L 79 K/UL (150-450) L Mean Platelet Volume 6.5 FL (6.5-10.1) 7.4 FL (6.5-10.1) Neutrophils (%) (Auto) % (45.0-75.0) % (45.0-75.0) Lymphocytes (%) (Auto) % (20.0-45.0) % (20.0-45.0) Monocytes (%) (Auto) % (1.0-10.0) % (1.0-10.0) Eosinophils (%) (Auto) % (0.0-3.0) % (0.0-3.0) Basophils (%) (Auto) % (0.0-2.0) % (0.0-2.0) Differential Total Cells Counted 100 Neutrophils % (Manual) 74 % (45-75) Pending Lymphocytes % (Manual) 25 % (20-45) Pending Monocytes % (Manual) 1 % (1-10) Eosinophils % (Manual) 0 % (0-3) Basophils % (Manual) 0 % (0-2) Band Neutrophils 0 % (0-8) Platelet Estimate Decreased L Pending Platelet Morphology Normal Pending Red Blood Cell Morphology Polychromasia 1+ Anisocytosis 1+ Urine Color Pale yellow Urine Appearance Clear Urine pH 5 (4.5-8.0) Urine Specific [place] 1.015 (1.005-1.035) Urine Protein 3+ (NEGATIVE) H Urine Glucose (UA) Negative (NEGATIVE) Urine Ketones Negative (NEGATIVE) Urine Blood 1+ (NEGATIVE) H Urine Nitrite Negative (NEGATIVE) Urine Bilirubin Negative (NEGATIVE) Urine Urobilinogen Normal MG/DL (0.0-1.0) Urine Leukocyte Esterase 1+ (NEGATIVE) H Urine RBC 0-2 /HPF (0 - 0) H Urine WBC 10-15 /HPF (0 - 0) H Urine Squamous Epithelial Cells None /LPF (NONE/OCC) Urine Bacteria Moderate /HPF (NONE) H Sodium Level 143 MMOL/L (136-145) 142 MMOL/L (136-145) Potassium Level 4.8 MMOL/L (3.5-5.1) 4.7 MMOL/L (3.5-5.1) Chloride Level 109 MMOL/L (98-107) H 110 MMOL/L (98-107) H Carbon Dioxide Level 27 MMOL/L (21-32) 27 MMOL/L (21-32) Anion Gap 7 mmol/L (5-15) 5 mmol/L (5-15) Blood Urea Nitrogen 43 mg/dL (7-18) H 44 mg/dL (7-18) H Creatinine 2.3 MG/DL (0.55-1.30) H 2.1 MG/DL (0.55-1.30) H Estimat Glomerular Filtration Rate mL/min (>60) mL/min (>60) Glucose Level 217 MG/DL (74-106) H 240 MG/DL (74-106) H Calcium Level 8.4 MG/DL (8.5-10.1) L 8.0 MG/DL (8.5-10.1) L Total Bilirubin 0.3 MG/DL (0.2-1.0) Aspartate Amino Transf (AST/SGOT) 18 U/L (15-37) Alanine Aminotransferase (ALT/SGPT) 35 U/L (12-78) Alkaline Phosphatase 88 U/L (46-116) Troponin I 0.034 ng/mL (0.000-0.056) Total Protein 6.3 G/DL (6.4-8.2) L Albumin 2.6 G/DL (3.4-5.0) L Globulin 3.7 g/dL Albumin/Globulin Ratio 0.7 (1.0-2.7) L Assessment/Recs: # Pancytopenia - potentially related initially to sepsis, also could be related to large spleen --> hepatitis and hiv ordered, us of the abdomen shows spenomegaly that is enlarged spleen --> anemia panel ordered as well, ferritin, tibc, folic acid, tsh, occult blood- -> consistent with anemia of chronic disease --> peripheral smear reviewed and shows no significant abnml --> r/o infectious etiology, cultures have been negative thus far --> USof the ABDOMEN HAS BEEN RE-ORDERED # Anemia of chronic disease - consistent with above diagnosis --> anemia panel reviewed --> hgb goal >7 # Acute encephalopathy superimposed on chronic dementia, also exacerbated by sedative medications given for agitation. Unclear etiology, could be related to mild AGUILAR present on admission or occult infection. --> avoid benzos, frequent orienting, fall, aspiration precautions. Correct underlying AGUILAR. --> Psychiatry consulted. appreciate recs # UTI with generalized weakness --> started on abx # Mild AGUILAR, unknown etiology, improved, continue with IV fluids and repeat BMP in AM. --> Avoid nephrotic meds, given ivf # Hyperkalemia, potassium has improved from 5.7 to 5.0 --> continue to monitor daily potassium levels # History of epilepsy, will give Keppra intravenously as he is unable to take PO meds due to lethargy # type 2 DM, controlled, hold oral diabetic meds while oral intake is minimal, will give reduced dose Lantus # Hypothyroidism, continue levothyroxine - can give intravenously if he remains lethargic. # Azotemia has been reviewed # DVT ppx is ok with heparin if plt >50k GREATLY APPRECIATE CONSULTATION! Watson Adams MD Mar 02, 2018 07:42
[2018-03-02 08:08] VITALS: BP 135/58
[2018-03-02] MEDS ORDERED: Docusate 100mg cap ORAL SCH ×2 (09:00)
[2018-03-02] MEDS ORDERED: Lisinopril 10mg tab ORAL SCH (09:00)
[2018-03-02] MEDS: Aspirin EC 81mg tab ORAL SCH (09:24)
--- NOTE | 2018-03-02 09:25 | History and Physical ---
History of Present Illness General Date patient seen: Mar 02, 2018 Time patient seen: 09:00 Reason for Hospitalization: Altered Level of Consciousness Present Illness HPI 78 year old man with dementia, DM2, epilepsy, dyslipidemia, unspecified psychiatric disorder, hypothyroidism sent from the group home for general weakness and fall. He is a limited historian due to dementia and most of the information was obtained from the medical record and group home documentation. He was admitted here 2 weeks ago with pancytopenia and mild AGUILAR, seen by hematology at the time and anemia was attributed to AOCD. Currently he denies any major bleeding, fever, chills, chest pain, dyspnea or cough. Allergies: Coded Allergies: No Known Allergies (Unverified , 02/13/18) Medication History Scheduled Aspirin Ec* (Aspirin Ec*), 81 MG ORAL DAILY, (Reported) Atorvastatin Calcium* (Atorvastatin Calcium*), 40 MG ORAL BEDTIME, (Reported) Docusate Sodium* (Docusate Sodium*), 100 MG ORAL DAILY, (Reported) Glipizide* (Glucotrol*), 10 MG ORAL ACBREAKFAST, (Reported) Insulin Glargine (Lantus), 30 UNITS SUBQ BEFORE BREAKFAST, (Reported) Insulin Glargine (Lantus), 10 UNITS SUBQ BEDTIME, (Reported) Levetiracetam (Keppra), 1,500 MG ORAL BID, (Reported) Levothyroxine Sodium* (Synthroid*), 25 MCG ORAL DAILY, (Reported) Lisinopril* (Lisinopril*), 10 MG ORAL DAILY, (Reported) Quetiapine Fumarate* (Seroquel*), 25 MG ORAL Q12HR Risperidone* (Risperdal*), 1.5 MG ORAL BID, (Reported) Sitagliptin (Januvia), 100 MG ORAL DAILY, (Reported) [Lispro 100 Units/Ml], 3 UNITS SUBQ TID, (Reported) Scheduled PRN Acetaminophen* (Acetaminophen 325MG Tablet*), 650 MG ORAL Q6H PRN for Mild Pain/ Temp > 100.5, (Reported) Miscellaneous Medications Insulin Aspart* (Novolog*), Unknown Dose SUBQ, (Reported) Patient History Limited by: medical condition Healthcare decision maker Resuscitation status Full Code Advanced Directive on File No Family History Family History: Unable to obtain due to encephalopathy Social History Social History: (1) Non-tobacco user Review of Systems Constitutional: Denies: fever Respiratory: Denies: cough Cardiovascular: Denies: chest pain, edema Gastrointestinal: Denies: abdominal pain Skin: Denies: rash ROS Narrative Limited by dementia Physical Exam General Appearance: alert, confused HEENT: atraumatic, anicteric Neck: supple, normal inspection, abnormal alignment Respiratory/Chest: lungs clear, normal breath sounds, no respiratory distress Cardiovascular/Chest: normal rate, regular rhythm Abdomen: non tender, soft Extremities: non-tender, normal inspection Skin Exam: normal pigmentation, warm/dry Neurologic: alert, responsive Musculoskeletal: normal muscle bulk Last 24 Hour Vital Signs Date Time Temp Pulse Resp B/P (MAP) Pulse Ox O2 Delivery O2 Flow Rate FiO2 03/02/18 08:08 97.8 77 18 135/58 (83) 98 97.8 03/02/18 04:00 97.8 72 19 108/58 (75) 97 97.8 03/02/18 01:58 Room Air 03/02/18 01:10 97.9 79 18 139/59 100 Nasal Cannula 3.0 97.8 03/02/18 01:00 97.7 71 20 130/52 (78) 95 97.7 03/01/18 23:50 97.8 80 17 146/57 100 Nasal Cannula 3.0 97.8 03/01/18 22:06 98.2 83 18 150/61 98 Room Air 98.2 Intake and Output 03/01/18 03/02/18 19:00 07:00 Intake Total 75 ml Output Total 60 ml Balance 15 ml Intake IV Total 75 ml Output Urine Total 60 ml # Voids 2 # Bowel Movements 4 Laboratory Tests Test 03/01/18 22:40 03/02/18 05:30 White Blood Count 3.9 K/UL (4.8-10.8) L 3.2 K/UL (4.8-10.8) L Red Blood Count 2.22 M/UL (4.70-6.10) L 2.09 M/UL (4.70-6.10) L Hemoglobin 7.1 G/DL (14.2-18.0) L 6.4 G/DL (14.2-18.0) *L Hematocrit 20.6 % (42.0-52.0) L 19.4 % (42.0-52.0) L Mean Corpuscular Volume 93 FL (80-99) 93 FL (80-99) Mean Corpuscular Hemoglobin 32.1 PG (27.0-31.0) H 30.6 PG (27.0-31.0) Mean Corpuscular Hemoglobin Concent 34.7 G/DL (32.0-36.0) 33.1 G/DL (32.0-36.0) Red Cell Distribution Width 14.5 % (11.6-14.8) 14.3 % (11.6-14.8) Platelet Count 100 K/UL (150-450) L 79 K/UL (150-450) L Mean Platelet Volume 6.5 FL (6.5-10.1) 7.4 FL (6.5-10.1) Neutrophils (%) (Auto) % (45.0-75.0) % (45.0-75.0) Lymphocytes (%) (Auto) % (20.0-45.0) % (20.0-45.0) Monocytes (%) (Auto) % (1.0-10.0) % (1.0-10.0) Eosinophils (%) (Auto) % (0.0-3.0) % (0.0-3.0) Basophils (%) (Auto) % (0.0-2.0) % (0.0-2.0) Differential Total Cells Counted 100 Neutrophils % (Manual) 74 % (45-75) Pending Lymphocytes % (Manual) 25 % (20-45) Pending Monocytes % (Manual) 1 % (1-10) Eosinophils % (Manual) 0 % (0-3) Basophils % (Manual) 0 % (0-2) Band Neutrophils 0 % (0-8) Platelet Estimate Decreased L Pending Platelet Morphology Normal Pending Red Blood Cell Morphology Polychromasia 1+ Anisocytosis 1+ Urine Color Pale yellow Urine Appearance Clear Urine pH 5 (4.5-8.0) Urine Specific [place] 1.015 (1.005-1.035) Urine Protein 3+ (NEGATIVE) H Urine Glucose (UA) Negative (NEGATIVE) Urine Ketones Negative (NEGATIVE) Urine Blood 1+ (NEGATIVE) H Urine Nitrite Negative (NEGATIVE) Urine Bilirubin Negative (NEGATIVE) Urine Urobilinogen Normal MG/DL (0.0-1.0) Urine Leukocyte Esterase 1+ (NEGATIVE) H Urine RBC 0-2 /HPF (0 - 0) H Urine WBC 10-15 /HPF (0 - 0) H Urine Squamous Epithelial Cells None /LPF (NONE/OCC) Urine Bacteria Moderate /HPF (NONE) H Sodium Level 143 MMOL/L (136-145) 142 MMOL/L (136-145) Potassium Level 4.8 MMOL/L (3.5-5.1) 4.7 MMOL/L (3.5-5.1) Chloride Level 109 MMOL/L (98-107) H 110 MMOL/L (98-107) H Carbon Dioxide Level 27 MMOL/L (21-32) 27 MMOL/L (21-32) Anion Gap 7 mmol/L (5-15) 5 mmol/L (5-15) Blood Urea Nitrogen 43 mg/dL (7-18) H 44 mg/dL (7-18) H Creatinine 2.3 MG/DL (0.55-1.30) H 2.1 MG/DL (0.55-1.30) H Estimat Glomerular Filtration Rate mL/min (>60) mL/min (>60) Glucose Level 217 MG/DL (74-106) H 240 MG/DL (74-106) H Calcium Level 8.4 MG/DL (8.5-10.1) L 8.0 MG/DL (8.5-10.1) L Total Bilirubin 0.3 MG/DL (0.2-1.0) Aspartate Amino Transf (AST/SGOT) 18 U/L (15-37) Alanine Aminotransferase (ALT/SGPT) 35 U/L (12-78) Alkaline Phosphatase 88 U/L (46-116) Troponin I 0.034 ng/mL (0.000-0.056) Total Protein 6.3 G/DL (6.4-8.2) L Albumin 2.6 G/DL (3.4-5.0) L Globulin 3.7 g/dL Albumin/Globulin Ratio 0.7 (1.0-2.7) L Height (Feet): 6 Height (Inches): 2.00 Weight (Pounds): 200 Medications Current Medications Medications (Trade) Dose Ordered Sig/Yoandy Route PRN Reason Start Time Stop Time Status Last Admin Dose Admin Acetaminophen (Tylenol) 650 mg Q6H PRN ORAL Mild Pain/Temp > 100.5 03/02/18 08:30 04/01/18 08:29 Aspirin (Ecotrin) 81 mg DAILY ORAL 03/02/18 09:00 04/01/18 08:59 Atorvastatin Calcium (Lipitor) 40 mg BEDTIME ORAL 03/02/18 21:00 04/01/18 20:59 Dextrose (Dextrose 50%) 25 ml Q30M PRN IV Hypoglycemia 03/02/18 02:00 04/01/18 01:59 Dextrose (Dextrose 50%) 50 ml Q30M PRN IV Hypoglycemia 03/02/18 02:00 04/01/18 01:59 Diphenhydramine HCl (Benadryl) 25 mg Q6H PRN ORAL Itching/Pruritis 03/02/18 00:15 04/01/18 00:14 Docusate Sodium (Colace) 100 mg DAILY ORAL 03/02/18 09:00 04/01/18 08:59 Insulin Aspart (NovoLOG) BEFORE MEALS AND HS SUBQ 03/02/18 06:30 04/01/18 06:29 03/02/18 06:18 Insulin Detemir (Levemir) 30 units BEFORE BREAKFAST SUBQ 03/03/18 06:30 04/02/18 06:29 Levetiracetam (Keppra) 1,500 mg Q12HR ORAL 03/02/18 09:00 04/01/18 08:59 Levothyroxine Sodium (Synthroid) 25 mcg Q24H ORAL 03/03/18 06:30 04/02/18 06:29 Lisinopril (Zestril) 10 mg DAILY ORAL 03/02/18 09:00 04/01/18 08:59 Quetiapine Fumarate (SEROquel) 25 mg Q12HR ORAL 03/02/18 09:00 04/01/18 08:59 Sitagliptin Phosphate (Januvia) 100 mg DAILY ORAL 03/02/18 09:00 04/01/18 08:59 Sodium Chloride 1,000 ml @ 75 mls/hr [id number] IVLG 03/02/18 01:07 04/01/18 01:06 03/02/18 03:20 Assessment/Plan Problem List: (1) AGUILAR (acute kidney injury) ICD Codes: N17.9 - Acute kidney failure, unspecified SNOMED: 56668033 (2) Anemia ICD Codes: D64.9 - Anemia, unspecified SNOMED: 321316227 Qualifiers: Qualified Codes: D64.9 - Anemia, unspecified (3) Acute metabolic encephalopathy ICD Codes: G93.41 - Metabolic encephalopathy SNOMED: 27189237, 921440490 Assessment/Plan 1) Weakness and fatigue likely due to acute on chronic anemia, history of pancytopenia, history of AOCD, admit to medical service transfuse 2 units of PRBC. Hematology eval. Monitor daily CBC 2)AGUILAR, mild, hold lisinopril, give IV hydration and monitor daily BMP. Spoke with Specialty Sales Consultant Dr. Tubbs who evaluate the patient. 3)Mild acute metabolic encephalopathy superimposed on dementia, continue to treat underlying medical problems and provide supportive measures. Fall and Aspiration precautions 4)Abnormal UA, possible UTI, given ceftriaxone in ED. As no evidence of SIRS, will hold furtehr antibiotic until culture data is obtained. Low threshold to start ceftriaxone if deterioration in clinical status or cultures come back positive. 5)History of DM type 2, will use Levemir in place of Lantus along with ISS 6)Epilepsy, stable, continue Keppra 7)Hypothyroidism, continue levothyroxine VTE PPx heparin SC Full Code Patient will require a hospitalization crossing 2 midnights in order to get blood transfusions and treatment of his AGUILAR, he is high risk for worsening multi -organ failure Gavino Amaya MD Mar 02, 2018 09:25
--- NOTE | 2018-03-02 11:16 | Consultation ---
Consult Note Consult Note asked to eval for renal failure- 78 year old man with dementia, DM2, epilepsy, dyslipidemia, unspecified psychiatric disorder, [facility]othy[facility]. He is a limited historian due to dementia and most of the information was obtained from the medical record and jail documentation. He was admitted here 2 weeks ago with pancytopenia and mild AGUILAR, seen by hematology at the time and anemia was attributed to AOCD. Currently he denies any major bleeding, fever, chills, chest pain, dyspnea or cough. Allergies: Coded Allergies: No Known Allergies (Unverified , 02/13/18) Assessment/Plan Renal failure- Likely Acute- ? Undelying chronic due to DM Urinary retention Sever Anemia UTI Acute encephalopathy Hydrate- Anemia avalos Transfuse Kidney RANDY urine studies Urine c/s Juanjo Ruiz MD Mar 02, 2018 11:16
--- NOTE | 2018-03-02 11:21 | Diagnostic Imaging Report ---
Indication: Altered mental status Technique: spiral acquisitions obtained through the brain. Angled axial and coronal 5 x 5 mm slices were reconstructed. No IV contrast utilized. Radiation dose was minimized using automated exposure control Total dose length product 1460.54 mGycm. CTDIvol(s) 70.38 mGy Comparison: none FINDINGS: No acute hemorrhage or edema. No mass effect or midline shift. There is age-related enlargement of the ventricles and extra axial CSF spaces. There is periventricular deep white matter ischemic change. Normal robertson-white differentiation. Visualized sinuses are unremarkable. Intact calvarium. Patent cavum septum pellucidum-normal anatomic variant. Evidence of prior bilateral cataract surgery. The mastoids are clear. IMPRESSION: Chronic and age-related changes. Negative for acute intracranial bleed or mass effect This agrees with the preliminary interpretation provided overnight by Dr. He The CT scanner at [facility] is accredited by the [employer] and the scans are performed using protocols designed to limit radiation exposure to as low as reasonably achievable to attain images of sufficient resolution adequate for diagnostic evaluation
--- NOTE | 2018-03-02 11:22 | Diagnostic Imaging Report ---
Indication: Chest pain Technique: One view of the chest Comparison: none Findings: Lungs and pleural spaces are clear. Heart size is normal . There are degenerative changes of the thoracic spine Impression: No acute process
[2018-03-02] MEDS ORDERED: Albumin Human 5% 250ml IV ONE ×2 (11:30→12:30)
[2018-03-02 11:49] LABS: CHOLESTEROL 99 MG/DL (< 200); FERRITIN 214 NG/ML (8-388); HDL CHOLESTEROL 48 MG/DL (40-60); PHOSPHORUS 3.1 MG/DL (2.5-4.9); TRIGLYCERIDES 51 MG/DL (30-150)
[2018-03-02 12:00] VITALS: BP 150/64
[2018-03-02 12:05] LABS: % IRON SATURATION 22 % (15-50); IRON 41 ug/dL (50-175); TOTAL IRON BINDING CAPACITY 184 ug/dL (250-450)
[2018-03-02] MEDS: Docusate 100mg cap ORAL SCH ×2 (13:00→17:07)
[2018-03-02] MEDS: Tamsulosin 0.4mg cap ORAL SCH ×2 (13:01→21:02)
--- NOTE | 2018-03-02 13:52 | Consultation ---
History of Present Illness General Date patient seen: Mar 02, 2018 Chief Complaint: Altered Level of Consciousness Present Illness HPI 78 year old man with dementia, schizophrenia, DM2, epilepsy, dyslipidemia, i was unable to assess the pt due to sedation, the pt has waxing and waning of consciousness Allergies: Coded Allergies: No Known Allergies (Unverified , 02/13/18) Medication History Scheduled Aspirin Ec* (Aspirin Ec*), 81 MG ORAL DAILY, (Reported) Atorvastatin Calcium* (Atorvastatin Calcium*), 40 MG ORAL BEDTIME, (Reported) Docusate Sodium* (Docusate Sodium*), 100 MG ORAL DAILY, (Reported) Glipizide* (Glucotrol*), 10 MG ORAL ACBREAKFAST, (Reported) Insulin Glargine (Lantus), 30 UNITS SUBQ BEFORE BREAKFAST, (Reported) Insulin Glargine (Lantus), 10 UNITS SUBQ BEDTIME, (Reported) Levetiracetam (Keppra), 1,500 MG ORAL BID, (Reported) Levothyroxine Sodium* (Synthroid*), 25 MCG ORAL DAILY, (Reported) Lisinopril* (Lisinopril*), 10 MG ORAL DAILY, (Reported) Quetiapine Fumarate* (Seroquel*), 25 MG ORAL Q12HR Risperidone* (Risperdal*), 1.5 MG ORAL BID, (Reported) Sitagliptin (Januvia), 100 MG ORAL DAILY, (Reported) [Lispro 100 Units/Ml], 3 UNITS SUBQ TID, (Reported) Scheduled PRN Acetaminophen* (Acetaminophen 325MG Tablet*), 650 MG ORAL Q6H PRN for Mild Pain/ Temp > 100.5, (Reported) Miscellaneous Medications Insulin Aspart* (Novolog*), Unknown Dose SUBQ, (Reported) Patient History History Provided By: Patient, Medical Record Healthcare decision maker Resuscitation status Full Code Advanced Directive on File No Past Medical/Surgical History Past Medical/Surgical History: (1) FTT (failure to thrive) in adult (2) UTI (urinary tract infection) (3) Unable to obtan due to encephalopathy (4) Anemia (5) Agitation (6) Acute metabolic encephalopathy (7) AGUILAR (acute kidney injury) Review of Systems Psychiatric: Reports: prior hx, anxiety, depressed feelings Physical Exam General Appearance: no apparent distress, lethargic, confused Last 24 Hour Vital Signs Date Time Temp Pulse Resp B/P (MAP) Pulse Ox O2 Delivery O2 Flow Rate FiO2 03/02/18 12:00 97.7 74 18 150/64 (92) 96 97.7 03/02/18 09:25 135/58 03/02/18 09:00 Room Air 03/02/18 08:08 97.8 77 18 135/58 (83) 98 97.8 03/02/18 04:00 97.8 72 19 108/58 (75) 97 97.8 03/02/18 01:58 Room Air 03/02/18 01:10 97.9 79 18 139/59 100 Nasal Cannula 3.0 97.8 03/02/18 01:00 97.7 71 20 130/52 (78) 95 97.7 03/01/18 23:50 97.8 80 17 146/57 100 Nasal Cannula 3.0 97.8 03/01/18 22:06 98.2 83 18 150/61 98 Room Air 98.2 Intake and Output 03/01/18 03/02/18 19:00 07:00 Intake Total 75 ml Output Total 60 ml Balance 15 ml Intake IV Total 75 ml Output Urine Total 60 ml # Voids 2 # Bowel Movements 4 Laboratory Tests Test 03/01/18 22:40 03/02/18 05:30 White Blood Count 3.9 K/UL (4.8-10.8) L 3.2 K/UL (4.8-10.8) L Red Blood Count 2.22 M/UL (4.70-6.10) L 2.09 M/UL (4.70-6.10) L Hemoglobin 7.1 G/DL (14.2-18.0) L 6.4 G/DL (14.2-18.0) *L Hematocrit 20.6 % (42.0-52.0) L 19.4 % (42.0-52.0) L Mean Corpuscular Volume 93 FL (80-99) 93 FL (80-99) Mean Corpuscular Hemoglobin 32.1 PG (27.0-31.0) H 30.6 PG (27.0-31.0) Mean Corpuscular Hemoglobin Concent 34.7 G/DL (32.0-36.0) 33.1 G/DL (32.0-36.0) Red Cell Distribution Width 14.5 % (11.6-14.8) 14.3 % (11.6-14.8) Platelet Count 100 K/UL (150-450) L 79 K/UL (150-450) L Mean Platelet Volume 6.5 FL (6.5-10.1) 7.4 FL (6.5-10.1) Neutrophils (%) (Auto) % (45.0-75.0) % (45.0-75.0) Lymphocytes (%) (Auto) % (20.0-45.0) % (20.0-45.0) Monocytes (%) (Auto) % (1.0-10.0) % (1.0-10.0) Eosinophils (%) (Auto) % (0.0-3.0) % (0.0-3.0) Basophils (%) (Auto) % (0.0-2.0) % (0.0-2.0) Differential Total Cells Counted 100 100 Neutrophils % (Manual) 74 % (45-75) 66 % (45-75) Lymphocytes % (Manual) 25 % (20-45) 29 % (20-45) Monocytes % (Manual) 1 % (1-10) 4 % (1-10) Eosinophils % (Manual) 0 % (0-3) 1 % (0-3) Basophils % (Manual) 0 % (0-2) 0 % (0-2) Band Neutrophils 0 % (0-8) 0 % (0-8) Platelet Estimate Decreased L Decreased L Platelet Morphology Normal Normal Red Blood Cell Morphology Polychromasia 1+ Anisocytosis 1+ Urine Color Pale yellow Urine Appearance Clear Urine pH 5 (4.5-8.0) Urine Specific [place] 1.015 (1.005-1.035) Urine Protein 3+ (NEGATIVE) H Urine Glucose (UA) Negative (NEGATIVE) Urine Ketones Negative (NEGATIVE) Urine Blood 1+ (NEGATIVE) H Urine Nitrite Negative (NEGATIVE) Urine Bilirubin Negative (NEGATIVE) Urine Urobilinogen Normal MG/DL (0.0-1.0) Urine Leukocyte Esterase 1+ (NEGATIVE) H Urine RBC 0-2 /HPF (0 - 0) H Urine WBC 10-15 /HPF (0 - 0) H Urine Squamous Epithelial Cells None /LPF (NONE/OCC) Urine Bacteria Moderate /HPF (NONE) H Sodium Level 143 MMOL/L (136-145) 142 MMOL/L (136-145) Potassium Level 4.8 MMOL/L (3.5-5.1) 4.7 MMOL/L (3.5-5.1) Chloride Level 109 MMOL/L (98-107) H 110 MMOL/L (98-107) H Carbon Dioxide Level 27 MMOL/L (21-32) 27 MMOL/L (21-32) Anion Gap 7 mmol/L (5-15) 5 mmol/L (5-15) Blood Urea Nitrogen 43 mg/dL (7-18) H 44 mg/dL (7-18) H Creatinine 2.3 MG/DL (0.55-1.30) H 2.1 MG/DL (0.55-1.30) H Estimat Glomerular Filtration Rate mL/min (>60) mL/min (>60) Glucose Level 217 MG/DL (74-106) H 240 MG/DL (74-106) H Calcium Level 8.4 MG/DL (8.5-10.1) L 8.0 MG/DL (8.5-10.1) L Total Bilirubin 0.3 MG/DL (0.2-1.0) Aspartate Amino Transf (AST/SGOT) 18 U/L (15-37) Alanine Aminotransferase (ALT/SGPT) 35 U/L (12-78) Alkaline Phosphatase 88 U/L (46-116) Troponin I 0.034 ng/mL (0.000-0.056) Total Protein 6.3 G/DL (6.4-8.2) L Albumin 2.6 G/DL (3.4-5.0) L Globulin 3.7 g/dL Albumin/Globulin Ratio 0.7 (1.0-2.7) L Hypochromasia 1+ Hemoglobin A1c 7.6 % (4.3-6.0) H Uric Acid 6.1 MG/DL (2.6-7.2) Phosphorus Level 3.1 MG/DL (2.5-4.9) Magnesium Level 1.6 MG/DL (1.8-2.4) L Iron Level 41 ug/dL (50-175) L Total Iron Binding Capacity 184 ug/dL (250-450) L Percent Iron Saturation 22 % (15-50) Unsaturated Iron Binding 143 ug/dL (112-346) Ferritin 214 NG/ML (8-388) C-Reactive Protein, Quantitative 1.4 mg/dL (0.00-0.90) H Triglycerides Level 51 MG/DL (30-150) Cholesterol Level 99 MG/DL (< 200) LDL Cholesterol 45 mg/dL (<100) HDL Cholesterol 48 MG/DL (40-60) Cholesterol/HDL Ratio 2.1 (3.3-4.4) L Vitamin B12 Level 554 PG/ML (193-986) Folate 7.5 NG/ML (8.6-58.9) L Thyroid Stimulating Hormone (TSH) 4.176 uiU/mL (0.358-3.740) Height (Feet): 6 Height (Inches): 2.00 Weight (Pounds): 200 Medications Current Medications Medications (Trade) Dose Ordered Sig/Yoandy Route PRN Reason Start Time Stop Time Status Last Admin Dose Admin Acetaminophen (Tylenol) 650 mg Q6H PRN ORAL Mild Pain/Temp > 100.5 03/02/18 08:30 04/01/18 08:29 Aspirin (Ecotrin) 81 mg DAILY ORAL 03/02/18 09:00 04/01/18 08:59 03/02/18 09:24 Atorvastatin Calcium (Lipitor) 10 mg BEDTIME ORAL 03/02/18 21:00 04/01/18 20:59 Dextrose (Dextrose 50%) 25 ml Q30M PRN IV Hypoglycemia 03/02/18 02:00 04/01/18 01:59 Dextrose (Dextrose 50%) 50 ml Q30M PRN IV Hypoglycemia 03/02/18 02:00 04/01/18 01:59 Diphenhydramine HCl (Benadryl) 25 mg Q6H PRN ORAL Itching/Pruritis 03/02/18 00:15 04/01/18 00:14 Docusate Sodium (Colace) 100 mg TID ORAL 03/02/18 13:00 04/01/18 08:59 Insulin Aspart (NovoLOG) BEFORE MEALS AND HS SUBQ 03/02/18 06:30 04/01/18 06:29 03/02/18 06:18 Insulin Detemir (Levemir) 30 units BEFORE BREAKFAST SUBQ 03/03/18 06:30 04/02/18 06:29 Levetiracetam (Keppra) 1,500 mg Q12HR ORAL 03/02/18 09:00 04/01/18 08:59 03/02/18 09:24 Levothyroxine Sodium (Synthroid) 25 mcg Q24H ORAL 03/03/18 06:30 04/02/18 06:29 Pantoprazole (Protonix) 40 mg Q12HR ORAL 03/02/18 11:30 04/01/18 11:29 Quetiapine Fumarate (SEROquel) 25 mg Q12HR ORAL 03/02/18 09:00 04/01/18 08:59 03/02/18 09:25 Sitagliptin Phosphate (Januvia) 100 mg DAILY ORAL 03/02/18 09:00 04/01/18 08:59 03/02/18 09:25 Sodium Chloride 1,000 ml @ 75 mls/hr [id number] IV 03/02/18 11:30 04/01/18 11:29 03/02/18 12:39 Tamsulosin HCl (Flomax) 0.4 mg Q12HR ORAL 03/02/18 11:30 04/01/18 11:29 Assessment/Plan Problem List: (1) Schizophrenia ICD Codes: F20.9 - Schizophrenia, unspecified SNOMED: [id number] Status: unchanged Assessment/Plan encephalopathy due to metabolic d/o -dc seroquel -start risperdal 1mg qhs Joey Matson MD Mar 02, 2018 13:52
[2018-03-02 15:38] VITALS: BP 145/65
--- NOTE | 2018-03-02 16:53 | Diagnostic Imaging Report ---
Indication: Abdominal pain Technique: [place]-scale and duplex images of the upper abdomen were obtained. Grayscale duplex images of the kidneys, retroperitoneum and bladder. Doppler interrogation of the hepatic vessels Comparison: 02/14/2018 Findings: Gallbladder is surgically absent. Sonographic Gacria's sign is negative. Common bile duct measures 3 mm in diameter. No intrahepatic biliary ductal dilatation. Liver demonstrates coarsened echogenicity, slight liver surface micronodularity. Irregular 14 x 4 mm hypoechoic or anechoic structures seen at the tip of the right hepatic lobe. This is not evident previously. Portal vein and hepatic veins are patent. Pancreas is unremarkable. The spleen is enlarged, measuring 14.1 cm long axis dimension Left kidney measures 11.5 cm in length. Right kidney measures 11.5 cm length. Both kidneys demonstrate normal echogenicity. There is no hydronephrosis. There is a small left renal cyst incidentally noted . Abdominal aorta is partially obscured by bowel gas, visualized portions are non-aneurysmal . Impression: Surgically absent gallbladder. Negative for dilated ducts Coarsened hepatic echogenicity, surface nodularity suggestive of cirrhosis 14 x 4 mm nodule hypoechoic structure at the tip of the right hepatic lobe, not definitely evident previously. Consider better characterization with contrast CT Splenomegaly Incidental finding small left renal cyst Note nonvisualization of portions of the abdominal aorta
--- NOTE | 2018-03-02 19:00 | Cardiology Report ---
APPROVED REPORT EKG Measurement Heart [id number] Normal sinus rhythm Left axis deviation Pulmonary disease pattern Nonspecific T wave abnormality Abnormal ECG
[2018-03-02 20:55] VITALS: BP 147/70
[2018-03-02] MEDS ORDERED: Atorvastatin 20mg tab ORAL SCH (21:00)
[2018-03-02] MEDS: Haloperidol 5mg/ml Inj IM PRN (23:33)
[2018-03-03] VITALS (7 sets, daily range): BP systolic 137–163; BP diastolic 56–80
[2018-03-03 05:44] LABS: HEMATOCRIT 25.3 % (42.0-52.0); HEMOGLOBIN 8.6 G/DL (14.2-18.0); MEAN CORPUSCULAR VOLUME 90 FL (80-99); PLATELET COUNT 92 K/UL (150-450); RED BLOOD COUNT 2.83 M/UL (4.70-6.10); RED CELL DISTRIBUTION WIDTH 14.3 % (11.6-14.8); WHITE BLOOD COUNT 3.1 K/UL (4.8-10.8)
[2018-03-03 06:11] LABS: ALANINE AMINOTRANSFERASE 38 U/L (12-78); ALBUMIN 2.5 G/DL (3.4-5.0); ALBUMIN/GLOBULIN RATIO 0.7 (1.0-2.7); ALKALINE PHOSPHATASE 85 U/L (46-116); ANION GAP 6 mmol/L (5-15); ASPARTATE AMINO TRANSFERASE 23 U/L (15-37); BILIRUBIN,TOTAL 0.3 MG/DL (0.2-1.0); BLOOD UREA NITROGEN 47 mg/dL (7-18); CARBON DIOXIDE 26 MMOL/L (21-32); CHLORIDE 110 MMOL/L (98-107); CREATININE 1.8 MG/DL (0.55-1.30); PHOSPHORUS 3.7 MG/DL (2.5-4.9); POTASSIUM 5.2 MMOL/L (3.5-5.1); SODIUM 142 MMOL/L (136-145)
[2018-03-03] MEDS: Levothyroxine 25mcg tab ORAL SCH (06:44)
[2018-03-03] MEDS: Levemir Flexpen SUBQ SCH ×2 (06:45→21:00)
[2018-03-03] MEDS: NovoLOG Insulin Flexpen SUBQ SCH ×4 (06:47→21:00)
[2018-03-03] MEDS: Docusate 100mg cap ORAL SCH ×3 (08:28→17:41)
[2018-03-03] MEDS: Aspirin EC 81mg tab ORAL SCH (08:28)
[2018-03-03] MEDS: Tamsulosin 0.4mg cap ORAL SCH ×2 (08:29→20:58)
--- NOTE | 2018-03-03 09:42 | Nephrology Progress Note ---
Assessment/Plan Problem List: (1) AGUILAR (acute kidney injury) (2) Acute metabolic encephalopathy (3) Anemia (4) UTI (urinary tract infection) (5) Cirrhosis Assessment Renal failure- Likely Acute- ? Undelying chronic due to DM Urinary retention Sever Anemia UTI Acute encephalopathy cirrhosis Plan Hydrate- Anemia avalos Transfused Kidney RANDY Negative urine studies Urine c/s flomax Surgically absent gallbladder. Negative for dilated ducts Coarsened hepatic echogenicity, surface nodularity suggestive of cirrhosis 14 x 4 mm nodule hypoechoic structure at the tip of the right hepatic lobe, not definitely evident previously. Splenomegaly Normal Kidney's no [place] Subjective ROS Limited/Unobtainable: No Constitutional: Reports: other - stronger Objective Objective Last 24 Hour Vital Signs Date Time Temp Pulse Resp B/P (MAP) Pulse Ox O2 Delivery O2 Flow Rate FiO2 03/03/18 04:00 97.5 81 17 140/80 (100) 97 97.5 03/03/18 01:31 88 156/80 (105) 03/03/18 00:00 98.1 79 18 163/78 (106) 98 98.1 03/02/18 21:00 Room Air 03/02/18 20:55 97.9 72 19 147/70 (95) 97 97.9 03/02/18 15:38 98.1 71 18 145/65 (91) 98 98.1 03/02/18 12:00 97.7 74 18 150/64 (92) 96 97.7 Intake and Output 03/02/18 03/03/18 19:00 07:00 Intake Total 750 ml 800 ml Output Total 900 ml 1000 ml Balance -150 ml -200 ml Intake Oral 480 ml 800 ml Blood Product 270 ml Output Urine Total 900 ml 1000 ml # Bowel Movements 1 Laboratory Tests 03/03/18 05:05: White Blood Count 3.1L, Red Blood Count 2.83L, Hemoglobin 8.6#L, Hematocrit 25.3 #L, Mean Corpuscular Volume 90, Mean Corpuscular Hemoglobin 30.3, Mean Corpuscular Hemoglobin Concent 33.8, Red Cell Distribution Width 14.3, Platelet Count 92L, Mean Platelet Volume 7.2, Neutrophils (%) (Auto) , Lymphocytes (%) ( Auto) , Monocytes (%) (Auto) , Eosinophils (%) (Auto) , Basophils (%) (Auto) , Differential Total Cells Counted 100, Neutrophils % (Manual) 53, Lymphocytes % ( Manual) 36, Monocytes % (Manual) 7, Eosinophils % (Manual) 2, Basophils % ( Manual) 1, Band Neutrophils 1, Platelet Estimate DecreasedL, Platelet Morphology Normal, Hypochromasia 1+, Sodium Level 142, Potassium Level 5.2H, Chloride Level 110H, Carbon Dioxide Level 26, Anion Gap 6, Blood Urea Nitrogen 47H, Creatinine 1.8H, Estimat Glomerular Filtration Rate , Glucose Level 232H, Calcium Level 8.0L, Phosphorus Level 3.7, Magnesium Level 1.5L, Total Bilirubin 0.3, Aspartate Amino Transf (AST/SGOT) 23, Alanine Aminotransferase (ALT/SGPT) 38, Alkaline Phosphatase 85, Pro-B-Type Natriuretic Peptide 791H, Total Protein 6.0L, Albumin 2.5L, Globulin 3.5, Albumin/Globulin Ratio 0.7L Height (Feet): 6 Height (Inches): 2.00 Weight (Pounds): 224 General Appearance: no apparent distress Cardiovascular: normal rate Respiratory/Chest: decreased breath sounds Abdomen: distended Juanjo Tubbs MD Mar 03, 2018 09:42
--- NOTE | 2018-03-03 11:17 | General Progress Note ---
Assessment/Plan Assessment/Plan Assessment/Recs: # Pancytopenia - cirrhosis++ and large spleen ++ in addition has evidence of cirrhosis on the us of the abdomen. HIv and hepatitis panel on prior admission was negative --> us of the abdomen shows spenomegaly that is enlarged spleen --> anemia panel ordered as well, ferritin, tibc, folic acid, tsh, occult blood- -> consistent with anemia of chronic disease --> peripheral smear reviewed and shows no significant abnml --> r/o infectious etiology, cultures have been negative thus far --> neupogen if ANC <1000 # Anemia of chronic disease - consistent with above diagnosis --> anemia panel reviewed --> hgb goal >7 # 14 x 4 mm nodule hypoechoic structure at the tip of the right hepatic lobe --> outpatient CT scan with contrast of the abdomen can be completed # Acute encephalopathy superimposed on chronic dementia, also exacerbated by sedative medications given for agitation. Unclear etiology, could be related to mild AGUILAR present on admission or occult infection. --> avoid benzos, frequent orienting, fall, aspiration precautions. Correct underlying AGUILAR. --> Psychiatry consulted. appreciate recs # UTI with generalized weakness --> started on abx # Mild AGUILAR, unknown etiology, improved, continue with IV fluids and repeat BMP in AM. --> Avoid nephrotic meds, given ivf # Hyperkalemia, potassium has improved from 5.7 to 5.0 --> continue to monitor daily potassium levels # History of epilepsy, will give Keppra intravenously as he is unable to take PO meds due to lethargy # type 2 DM, controlled, hold oral diabetic meds while oral intake is minimal, will give reduced dose Lantus # Hypothyroidism, continue levothyroxine - can give intravenously if he remains lethargic. # Azotemia has been reviewed # DVT ppx is ok with heparin if plt >50k GREATLY APPRECIATE CONSULTATION! Subjective Constitutional: Denies: no symptoms, chills, diaphoresis, fever, malaise, weakness, other HEENT: Denies: no symptoms, eye pain, blurred vision, tearing, double vision, ear pain, ear discharge, nose pain, nose congestion, throat pain, throat swelling, mouth pain, mouth swelling, other Cardiovascular: Denies: no symptoms, chest pain, edema, irregular heart rate, lightheadedness, palpitations, syncope, other Respiratory: Denies: no symptoms, cough, orthopnea, shortness of breath, SOB with excertion, SOB at rest, sputum, stridor, wheezing, other Gastrointestinal/Abdominal: Denies: no symptoms, abdomen distended, abdominal pain, black stools, tarry stools, blood in stool, constipated, diarrhea, difficulty swallowing, nausea, poor appetite, poor fluid intake, rectal bleeding , vomiting, other Genitourinary: Denies: no symptoms, burning, discharge, frequency, flank pain, hematuria, incontinence, pain, urgency, other Neurologic/Psychiatric: Denies: no symptoms, anxiety, depressed, emotional problems, headache, numbness, paresthesia, pre-existing deficit, seizure, tingling, tremors, weakness, other Endocrine: Denies: no symptoms, excessive sweating, flushing, intolerance to cold, intolerance to heat, increased hunger, increased thirst, increased urine, unexplained weight gain, unexplained weight loss, other Hematologic/Lymphatic: Denies: no symptoms, anemia, easy bleeding, easy bruising, other Allergies: Coded Allergies: No Known Allergies (Unverified , 02/13/18) Subjective feeling better, no complaints, no f/c, remains hypertensive Objective Last 24 Hour Vital Signs Date Time Temp Pulse Resp B/P (MAP) Pulse Ox O2 Delivery O2 Flow Rate FiO2 03/03/18 09:00 Room Air 03/03/18 08:00 97.7 76 18 150/64 (92) 98 97.7 03/03/18 04:00 97.5 81 17 140/80 (100) 97 97.5 03/03/18 01:31 88 156/80 (105) 03/03/18 00:00 98.1 79 18 163/78 (106) 98 98.1 03/02/18 21:00 Room Air 03/02/18 20:55 97.9 72 19 147/70 (95) 97 97.9 03/02/18 15:38 98.1 71 18 145/65 (91) 98 98.1 03/02/18 12:00 97.7 74 18 150/64 (92) 96 97.7 Intake and Output 03/02/18 03/03/18 19:00 07:00 Intake Total 750 ml 800 ml Output Total 900 ml 1000 ml Balance -150 ml -200 ml Intake Oral 480 ml 800 ml Blood Product 270 ml Output Urine Total 900 ml 1000 ml # Bowel Movements 1 Laboratory Tests 03/03/18 05:05: White Blood Count 3.1L, Red Blood Count 2.83L, Hemoglobin 8.6#L, Hematocrit 25.3 #L, Mean Corpuscular Volume 90, Mean Corpuscular Hemoglobin 30.3, Mean Corpuscular Hemoglobin Concent 33.8, Red Cell Distribution Width 14.3, Platelet Count 92L, Mean Platelet Volume 7.2, Neutrophils (%) (Auto) , Lymphocytes (%) ( Auto) , Monocytes (%) (Auto) , Eosinophils (%) (Auto) , Basophils (%) (Auto) , Differential Total Cells Counted 100, Neutrophils % (Manual) 53, Lymphocytes % ( Manual) 36, Monocytes % (Manual) 7, Eosinophils % (Manual) 2, Basophils % ( Manual) 1, Band Neutrophils 1, Platelet Estimate DecreasedL, Platelet Morphology Normal, Hypochromasia 1+, Sodium Level 142, Potassium Level 5.2H, Chloride Level 110H, Carbon Dioxide Level 26, Anion Gap 6, Blood Urea Nitrogen 47H, Creatinine 1.8H, Estimat Glomerular Filtration Rate , Glucose Level 232H, Calcium Level 8.0L, Phosphorus Level 3.7, Magnesium Level 1.5L, Total Bilirubin 0.3, Aspartate Amino Transf (AST/SGOT) 23, Alanine Aminotransferase (ALT/SGPT) 38, Alkaline Phosphatase 85, Pro-B-Type Natriuretic Peptide 791H, Total Protein 6.0L, Albumin 2.5L, Globulin 3.5, Albumin/Globulin Ratio 0.7L Height (Feet): 6 Height (Inches): 2.00 Weight (Pounds): 224 General Appearance: no apparent distress EENT: normal ENT inspection Neck: normal inspection Cardiovascular: normal rate, no JVD Respiratory/Chest: lungs clear Abdomen: non tender Extremities: normal inspection Edema: no edema noted Leg (L), no edema noted Leg (R) Neurologic: alert Watson Adams MD Mar 03, 2018 11:17
--- NOTE | 2018-03-03 14:27 | General Progress Note ---
Assessment/Plan Problem List: (1) Schizophrenia ICD Codes: F20.9 - Schizophrenia, unspecified SNOMED: 72352410 Assessment/Plan encephalopathy due to metabolic d/o -dc seroquel -start risperdal 2mg qhs Subjective Date patient seen: Mar 03, 2018 Neurologic/Psychiatric: Reports: anxiety, depressed, emotional problems Allergies: Coded Allergies: No Known Allergies (Unverified , 02/13/18) Objective Last 24 Hour Vital Signs Date Time Temp Pulse Resp B/P (MAP) Pulse Ox O2 Delivery O2 Flow Rate FiO2 03/03/18 12:20 98.5 64 17 137/56 (83) 98 98.5 03/03/18 09:00 Room Air 03/03/18 08:00 97.7 76 18 150/64 (92) 98 97.7 03/03/18 04:00 97.5 81 17 140/80 (100) 97 97.5 03/03/18 01:31 88 156/80 (105) 03/03/18 00:00 98.1 79 18 163/78 (106) 98 98.1 03/02/18 21:00 Room Air 03/02/18 20:55 97.9 72 19 147/70 (95) 97 97.9 03/02/18 15:38 98.1 71 18 145/65 (91) 98 98.1 Intake and Output 03/02/18 03/03/18 19:00 07:00 Intake Total 750 ml 800 ml Output Total 900 ml 1000 ml Balance -150 ml -200 ml Intake Oral 480 ml 800 ml Blood Product 270 ml Output Urine Total 900 ml 1000 ml # Bowel Movements 1 Laboratory Tests 03/03/18 05:05: White Blood Count 3.1L, Red Blood Count 2.83L, Hemoglobin 8.6#L, Hematocrit 25.3 #L, Mean Corpuscular Volume 90, Mean Corpuscular Hemoglobin 30.3, Mean Corpuscular Hemoglobin Concent 33.8, Red Cell Distribution Width 14.3, Platelet Count 92L, Mean Platelet Volume 7.2, Neutrophils (%) (Auto) , Lymphocytes (%) ( Auto) , Monocytes (%) (Auto) , Eosinophils (%) (Auto) , Basophils (%) (Auto) , Differential Total Cells Counted 100, Neutrophils % (Manual) 53, Lymphocytes % ( Manual) 36, Monocytes % (Manual) 7, Eosinophils % (Manual) 2, Basophils % ( Manual) 1, Band Neutrophils 1, Platelet Estimate DecreasedL, Platelet Morphology Normal, Hypochromasia 1+, Sodium Level 142, Potassium Level 5.2H, Chloride Level 110H, Carbon Dioxide Level 26, Anion Gap 6, Blood Urea Nitrogen 47H, Creatinine 1.8H, Estimat Glomerular Filtration Rate , Glucose Level 232H, Calcium Level 8.0L, Phosphorus Level 3.7, Magnesium Level 1.5L, Total Bilirubin 0.3, Aspartate Amino Transf (AST/SGOT) 23, Alanine Aminotransferase (ALT/SGPT) 38, Alkaline Phosphatase 85, Pro-B-Type Natriuretic Peptide 791H, Total Protein 6.0L, Albumin 2.5L, Globulin 3.5, Albumin/Globulin Ratio 0.7L Height (Feet): 6 Height (Inches): 2.00 Weight (Pounds): 224 General Appearance: no apparent distress, alert, confused Joey Matson MD Mar 03, 2018 14:27
--- NOTE | 2018-03-03 15:54 | General Progress Note ---
Assessment/Plan Problem List: (1) AGUILAR (acute kidney injury) ICD Codes: N17.9 - Acute kidney failure, unspecified SNOMED: 65436221 (2) Anemia ICD Codes: D64.9 - Anemia, unspecified SNOMED: 693001473 Qualifiers: Qualified Codes: D64.9 - Anemia, unspecified (3) Acute metabolic encephalopathy ICD Codes: G93.41 - Metabolic encephalopathy SNOMED: 82660391, [id number] Assessment/Plan 1)Acute on chronic anemia, history of pancytopenia, history of AOCD, Hb improved after 2 units of blood. Hematology following 2)GAUILAR, due to acute urinary retention, creatinine improved, continue Flomax and Valdes catheter. Nephrology following. 3)Mild acute metabolic encephalopathy superimposed on dementia, likely multifactorial from AGUILAR, anemia, improved since admission, continue supportive measures and treatment of underlying acute medical problems. 4)Abnormal UA, culture remain negative, continue to hold antibiotics for now. 5)History of DM type 2, fasting glucose of 232, will increase Levemir dose 6)Epilepsy, stable, continue Keppra 7)Hypothyroidism, continue levothyroxine Subjective Date patient seen: Mar 03, 2018 Time patient seen: 09:00 Constitutional: Denies: fever Cardiovascular: Denies: chest pain Respiratory: Denies: shortness of breath Gastrointestinal/Abdominal: Denies: abdominal pain Allergies: Coded Allergies: No Known Allergies (Unverified , 02/13/18) Subjective Limited by dementia Objective Last 24 Hour Vital Signs Date Time Temp Pulse Resp B/P (MAP) Pulse Ox O2 Delivery O2 Flow Rate FiO2 03/03/18 12:20 98.5 64 17 137/56 (83) 98 98.5 03/03/18 09:00 Room Air 03/03/18 08:00 97.7 76 18 150/64 (92) 98 97.7 03/03/18 04:00 97.5 81 17 140/80 (100) 97 97.5 03/03/18 01:31 88 156/80 (105) 03/03/18 00:00 98.1 79 18 163/78 (106) 98 98.1 03/02/18 21:00 Room Air 03/02/18 20:55 97.9 72 19 147/70 (95) 97 97.9 Intake and Output 03/02/18 03/03/18 19:00 07:00 Intake Total 750 ml 800 ml Output Total 900 ml 1000 ml Balance -150 ml -200 ml Intake Oral 480 ml 800 ml Blood Product 270 ml Output Urine Total 900 ml 1000 ml # Bowel Movements 1 Laboratory Tests 03/03/18 05:05: White Blood Count 3.1L, Red Blood Count 2.83L, Hemoglobin 8.6#L, Hematocrit 25.3 #L, Mean Corpuscular Volume 90, Mean Corpuscular Hemoglobin 30.3, Mean Corpuscular Hemoglobin Concent 33.8, Red Cell Distribution Width 14.3, Platelet Count 92L, Mean Platelet Volume 7.2, Neutrophils (%) (Auto) , Lymphocytes (%) ( Auto) , Monocytes (%) (Auto) , Eosinophils (%) (Auto) , Basophils (%) (Auto) , Differential Total Cells Counted 100, Neutrophils % (Manual) 53, Lymphocytes % ( Manual) 36, Monocytes % (Manual) 7, Eosinophils % (Manual) 2, Basophils % ( Manual) 1, Band Neutrophils 1, Platelet Estimate DecreasedL, Platelet Morphology Normal, Hypochromasia 1+, Sodium Level 142, Potassium Level 5.2H, Chloride Level 110H, Carbon Dioxide Level 26, Anion Gap 6, Blood Urea Nitrogen 47H, Creatinine 1.8H, Estimat Glomerular Filtration Rate , Glucose Level 232H, Calcium Level 8.0L, Phosphorus Level 3.7, Magnesium Level 1.5L, Total Bilirubin 0.3, Aspartate Amino Transf (AST/SGOT) 23, Alanine Aminotransferase (ALT/SGPT) 38, Alkaline Phosphatase 85, Pro-B-Type Natriuretic Peptide 791H, Total Protein 6.0L, Albumin 2.5L, Globulin 3.5, Albumin/Globulin Ratio 0.7L Height (Feet): 6 Height (Inches): 2.00 Weight (Pounds): 224 General Appearance: alert, confused Neck: non-tender, supple Cardiovascular: normal rate, regular rhythm Respiratory/Chest: lungs clear, normal breath sounds Abdomen: non tender, soft Gavino Amaya MD Mar 03, 2018 15:54
[2018-03-03] MEDS ORDERED: Tamsulosin 0.4mg cap ORAL SCH (21:00)
[2018-03-04] VITALS: BP 135/59
[2018-03-04] MEDS: Haloperidol 5mg/ml Inj IM PRN ×2 (01:34→09:56)
[2018-03-04 04:00] VITALS: BP 144/64
[2018-03-04] MEDS: Levothyroxine 25mcg tab ORAL SCH (05:30)
[2018-03-04] MEDS: Levemir Flexpen SUBQ SCH ×3 (05:31→20:48)
[2018-03-04] MEDS: NovoLOG Insulin Flexpen SUBQ SCH ×4 (05:32→20:47)
[2018-03-04 07:39] LABS: HEMATOCRIT 25.2 % (42.0-52.0); HEMOGLOBIN 8.5 G/DL (14.2-18.0); MEAN CORPUSCULAR VOLUME 90 FL (80-99); PLATELET COUNT 95 K/UL (150-450); WHITE BLOOD COUNT 3.1 K/UL (4.8-10.8)
[2018-03-04 08:00] VITALS: BP 140/66
[2018-03-04 08:09] LABS: ANION GAP 7 mmol/L (5-15); BLOOD UREA NITROGEN 47 mg/dL (7-18); CALCIUM 7.9 MG/DL (8.5-10.1); CARBON DIOXIDE 24 MMOL/L (21-32); CHLORIDE 108 MMOL/L (98-107); CREATININE 1.9 MG/DL (0.55-1.30); POTASSIUM 5.3 MMOL/L (3.5-5.1); SODIUM 139 MMOL/L (136-145)
[2018-03-04] MEDS: Aspirin EC 81mg tab ORAL SCH (08:42)
[2018-03-04] MEDS: Tamsulosin 0.4mg cap ORAL SCH ×2 (08:42→20:46)
[2018-03-04] MEDS: Docusate 100mg cap ORAL SCH ×3 (08:43→17:11)
--- NOTE | 2018-03-04 09:43 | General Progress Note ---
Assessment/Plan Assessment/Plan Assessment/Recs: # Pancytopenia - cirrhosis++ and large spleen ++ in addition has evidence of cirrhosis on the us of the abdomen. Hiv and hepatitis panel on prior admission was negative --> us of the abdomen shows spenomegaly that is enlarged spleen --> anemia panel ordered as well, ferritin, tibc, folic acid, tsh, occult blood- -> consistent with anemia of chronic disease --> peripheral smear reviewed and shows no significant abnml --> r/o infectious etiology, cultures have been negative thus far --> Neupogen if ANC <1000 # Anemia of chronic disease - consistent with above diagnosis --> anemia panel reviewed --> panel has been reviewed --> hgb goal >7 # 14 x 4 mm nodule hypoechoic structure at the tip of the right hepatic lobe --> outpatient CT scan with contrast of the abdomen can be completed # Acute encephalopathy superimposed on chronic dementia, also exacerbated by sedative medications given for agitation. Unclear etiology, could be related to mild AGUILAR present on admission or occult infection. --> avoid benzos, frequent orienting, fall, aspiration precautions. --> Correct underlying AGUILAR. --> Psychiatry consulted. appreciate recs # UTI with generalized weakness --> started on abx # Mild AGUILAR, unknown etiology, improved, continue with IV fluids and repeat BMP in AM. --> Avoid nephrotic meds, given ivf # Hyperkalemia, potassium has improved from 5.7 to 5.0 --> continue to monitor daily potassium levels # History of epilepsy, will give Keppra intravenously as he is unable to take PO meds due to lethargy # type 2 DM, controlled, hold oral diabetic meds while oral intake is minimal, will give reduced dose Lantus # Hypothyroidism, continue levothyroxine - can give intravenously if he remains lethargic. # Azotemia has been reviewed # DVT ppx is ok with heparin if plt >50k GREATLY APPRECIATE CONSULTATION! Subjective Constitutional: Denies: no symptoms, chills, diaphoresis, fever, malaise, weakness, other HEENT: Denies: no symptoms, eye pain, blurred vision, tearing, double vision, ear pain, ear discharge, nose pain, nose congestion, throat pain, throat swelling, mouth pain, mouth swelling, other Cardiovascular: Denies: no symptoms, chest pain, edema, irregular heart rate, lightheadedness, palpitations, syncope, other Respiratory: Denies: no symptoms, cough, orthopnea, shortness of breath, SOB with excertion, SOB at rest, sputum, stridor, wheezing, other Gastrointestinal/Abdominal: Denies: no symptoms, abdomen distended, abdominal pain, black stools, tarry stools, blood in stool, constipated, diarrhea, difficulty swallowing, nausea, poor appetite, poor fluid intake, rectal bleeding , vomiting, other Genitourinary: Denies: no symptoms, burning, discharge, frequency, flank pain, hematuria, incontinence, pain, urgency, other Neurologic/Psychiatric: Denies: no symptoms, anxiety, depressed, emotional problems, headache, numbness, paresthesia, pre-existing deficit, seizure, tingling, tremors, weakness, other Endocrine: Denies: no symptoms, excessive sweating, flushing, intolerance to cold, intolerance to heat, increased hunger, increased thirst, increased urine, unexplained weight gain, unexplained weight loss, other Hematologic/Lymphatic: Denies: no symptoms, anemia, easy bleeding, easy bruising, other Allergies: Coded Allergies: No Known Allergies (Unverified , 02/13/18) Subjective feeling better, no complaints, no f/c, remains hypertensive at this time, on meds Objective Last 24 Hour Vital Signs Date Time Temp Pulse Resp B/P (MAP) Pulse Ox O2 Delivery O2 Flow Rate FiO2 03/04/18 08:00 97.8 68 19 140/66 (90) 98 97.8 03/04/18 04:00 97.6 66 20 144/64 (90) 98 97.6 03/04/18 00:00 98.1 64 18 135/59 (84) 98 98.1 03/03/18 20:02 Room Air 03/03/18 20:00 97.7 66 20 138/62 (87) 97 97.7 03/03/18 16:00 98.0 64 18 142/63 (89) 97 98.0 03/03/18 12:20 98.5 64 17 137/56 (83) 98 98.5 Intake and Output 03/03/18 03/04/18 19:00 07:00 Intake Total 400 ml 1040 ml Output Total 350 ml 1700 ml Balance 50 ml -660 ml Intake Oral 440 ml IV Total 400 ml 600 ml Output Urine Total 350 ml 1700 ml # Bowel Movements 1 2 Laboratory Tests 03/04/18 06:20: White Blood Count 3.1L, Red Blood Count 2.80L, Hemoglobin 8.5L, Hematocrit 25.2L , Mean Corpuscular Volume 90, Mean Corpuscular Hemoglobin 30.3, Mean Corpuscular Hemoglobin Concent 33.7, Red Cell Distribution Width 14.0, Platelet Count 95L, Mean Platelet Volume 8.7, Neutrophils (%) (Auto) , Lymphocytes (%) ( Auto) , Monocytes (%) (Auto) , Eosinophils (%) (Auto) , Basophils (%) (Auto) , Neutrophils % (Manual) [Pending], Lymphocytes % (Manual) [Pending], Platelet Estimate [Pending], Platelet Morphology [Pending], Sodium Level 139, Potassium Level 5.3H, Chloride Level 108H, Carbon Dioxide Level 24, Anion Gap 7, Blood Urea Nitrogen 47H, Creatinine 1.9H, Estimat Glomerular Filtration Rate , Glucose Level 187H, Calcium Level 7.9L, Magnesium Level 1.7L Height (Feet): 6 Height (Inches): 2.00 Weight (Pounds): 224 General Appearance: alert EENT: TMs normal Neck: normal inspection Cardiovascular: normal rate Respiratory/Chest: no respiratory distress Abdomen: no organomegaly Extremities: normal inspection Edema: 1+ Leg (L), 1+ Leg (R) Edema: mild edema Neurologic: alert Watson Adams MD Mar 04, 2018 09:43
[2018-03-04] MEDS ORDERED: Sodium Polystyrene Sulfonate 15gm Powder ORAL SCH (10:30)
--- NOTE | 2018-03-04 12:01 | Nephrology Progress Note ---
Assessment/Plan Problem List: (1) AGUILAR (acute kidney injury) (2) Acute metabolic encephalopathy (3) Anemia (4) UTI (urinary tract infection) (5) Cirrhosis Assessment Renal failure- Likely Acute- ? Undelying chronic due to DM Urinary retention Sever Anemia UTI Acute encephalopathy cirrhosis Plan kayexelate- Hydrate- Anemia avalos Transfused Kidney RANDY Negative urine studies Urine c/s flomax Surgically absent gallbladder. Negative for dilated ducts Coarsened hepatic echogenicity, surface nodularity suggestive of cirrhosis 14 x 4 mm nodule hypoechoic structure at the tip of the right hepatic lobe, not definitely evident previously. Splenomegaly Normal Kidney's no [place] Subjective ROS Limited/Unobtainable: No Constitutional: Reports: malaise Objective Objective Last 24 Hour Vital Signs Date Time Temp Pulse Resp B/P (MAP) Pulse Ox O2 Delivery O2 Flow Rate FiO2 03/04/18 09:00 Room Air 03/04/18 08:00 97.8 68 19 140/66 (90) 98 97.8 03/04/18 04:00 97.6 66 20 144/64 (90) 98 97.6 03/04/18 00:00 98.1 64 18 135/59 (84) 98 98.1 03/03/18 20:02 Room Air 03/03/18 20:00 97.7 66 20 138/62 (87) 97 97.7 03/03/18 16:00 98.0 64 18 142/63 (89) 97 98.0 03/03/18 12:20 98.5 64 17 137/56 (83) 98 98.5 Intake and Output 03/03/18 03/04/18 19:00 07:00 Intake Total 400 ml 1040 ml Output Total 350 ml 1700 ml Balance 50 ml -660 ml Intake Oral 440 ml IV Total 400 ml 600 ml Output Urine Total 350 ml 1700 ml # Bowel Movements 1 2 Laboratory Tests 03/04/18 06:20: White Blood Count 3.1L, Red Blood Count 2.80L, Hemoglobin 8.5L, Hematocrit 25.2L , Mean Corpuscular Volume 90, Mean Corpuscular Hemoglobin 30.3, Mean Corpuscular Hemoglobin Concent 33.7, Red Cell Distribution Width 14.0, Platelet Count 95L, Mean Platelet Volume 8.7, Neutrophils (%) (Auto) , Lymphocytes (%) ( Auto) , Monocytes (%) (Auto) , Eosinophils (%) (Auto) , Basophils (%) (Auto) , Differential Total Cells Counted 100, Neutrophils % (Manual) 66, Lymphocytes % ( Manual) 27, Monocytes % (Manual) 6, Eosinophils % (Manual) 1, Basophils % ( Manual) 0, Band Neutrophils 0, Platelet Estimate DecreasedL, Platelet Morphology Normal, Hypochromasia 2+, Anisocytosis 1+, Sodium Level 139, Potassium Level 5.3H, Chloride Level 108H, Carbon Dioxide Level 24, Anion Gap 7 , Blood Urea Nitrogen 47H, Creatinine 1.9H, Estimat Glomerular Filtration Rate , Glucose Level 187H, Calcium Level 7.9L, Magnesium Level 1.7L 03/04/18 10:10: Ammonia 27 Height (Feet): 6 Height (Inches): 2.00 Weight (Pounds): 224 General Appearance: confused Respiratory/Chest: decreased breath sounds Abdomen: distended Objective no change Juanjo Tubbs MD Mar 04, 2018 12:01
[2018-03-04] MEDS ORDERED: Iron Sucrose 200 MG in NS 110 ML IV ONE (15:00)
--- NOTE | 2018-03-04 16:36 | General Progress Note ---
Assessment/Plan Problem List: (1) AGUILAR (acute kidney injury) ICD Codes: N17.9 - Acute kidney failure, unspecified SNOMED: 58766809 (2) Anemia ICD Codes: D64.9 - Anemia, unspecified SNOMED: 069723668 Qualifiers: Qualified Codes: D64.9 - Anemia, unspecified (3) Acute metabolic encephalopathy ICD Codes: G93.41 - Metabolic encephalopathy SNOMED: 91383612, [id number] Assessment/Plan 1)Acute on chronic anemia, history of pancytopenia, history of AOCD, stable counts after 2 units of PRBC. Hematology following. 2)Newly diagnosed cirrhosis based on imaging with splenomegaly, appears to be compensate. Discussed with GI who will evaluate the patient for cirrhosis. 3)AGUILAR, due to acute urinary retention, improved, continue Flomax and Valdes catheter. Nephrology following. 4)Mild acute metabolic encephalopathy superimposed on dementia, likely multifactorial from AGUILAR, anemia, improved, continue supportive measures 5)Abnormal UA, negative culture, no need for further antibiotic 6)History of DM type 2, continue Levemir 7)Epilepsy, stable, continue Keppra 8)Hypothyroidism, continue levothyroxine Subjective Date patient seen: Mar 04, 2018 Time patient seen: 12:00 Cardiovascular: Denies: chest pain Respiratory: Denies: cough Gastrointestinal/Abdominal: Denies: abdomen distended, abdominal pain Allergies: Coded Allergies: No Known Allergies (Unverified , 02/13/18) Subjective Limited by dementia Objective Last 24 Hour Vital Signs Date Time Temp Pulse Resp B/P (MAP) Pulse Ox O2 Delivery O2 Flow Rate FiO2 03/04/18 09:00 Room Air 03/04/18 08:00 97.8 68 19 140/66 (90) 98 97.8 03/04/18 04:00 97.6 66 20 144/64 (90) 98 97.6 03/04/18 00:00 98.1 64 18 135/59 (84) 98 98.1 03/03/18 20:02 Room Air 03/03/18 20:00 97.7 66 20 138/62 (87) 97 97.7 Intake and Output 03/03/18 03/04/18 19:00 07:00 Intake Total 400 ml 1040 ml Output Total 350 ml 1700 ml Balance 50 ml -660 ml Intake Oral 440 ml IV Total 400 ml 600 ml Output Urine Total 350 ml 1700 ml # Bowel Movements 1 2 Laboratory Tests 03/04/18 06:20: White Blood Count 3.1L, Red Blood Count 2.80L, Hemoglobin 8.5L, Hematocrit 25.2L , Mean Corpuscular Volume 90, Mean Corpuscular Hemoglobin 30.3, Mean Corpuscular Hemoglobin Concent 33.7, Red Cell Distribution Width 14.0, Platelet Count 95L, Mean Platelet Volume 8.7, Neutrophils (%) (Auto) , Lymphocytes (%) ( Auto) , Monocytes (%) (Auto) , Eosinophils (%) (Auto) , Basophils (%) (Auto) , Differential Total Cells Counted 100, Neutrophils % (Manual) 66, Lymphocytes % ( Manual) 27, Monocytes % (Manual) 6, Eosinophils % (Manual) 1, Basophils % ( Manual) 0, Band Neutrophils 0, Platelet Estimate DecreasedL, Platelet Morphology Normal, Hypochromasia 2+, Anisocytosis 1+, Sodium Level 139, Potassium Level 5.3H, Chloride Level 108H, Carbon Dioxide Level 24, Anion Gap 7 , Blood Urea Nitrogen 47H, Creatinine 1.9H, Estimat Glomerular Filtration Rate , Glucose Level 187H, Calcium Level 7.9L, Magnesium Level 1.7L 03/04/18 10:10: Ammonia 27 Height (Feet): 6 Height (Inches): 2.00 Weight (Pounds): 224 General Appearance: alert, confused Neck: non-tender, supple Cardiovascular: normal rate, regular rhythm Respiratory/Chest: chest wall non-tender, lungs clear, normal breath sounds Abdomen: non tender, soft Gavino Amaya MD Mar 04, 2018 16:36
[2018-03-04 20:00] VITALS: BP 162/80
[2018-03-04 21:41] VITALS: BP 154/82
--- NOTE | 2018-03-04 22:08 | General Progress Note ---
Assessment/Plan Problem List: (1) Schizophrenia ICD Codes: F20.9 - Schizophrenia, unspecified SNOMED: [id number] Status: stable Assessment/Plan encephalopathy due to metabolic d/o -dc seroquel -start risperdal 2mg qhs Subjective Date patient seen: Mar 04, 2018 Neurologic/Psychiatric: Reports: anxiety, depressed, emotional problems Allergies: Coded Allergies: No Known Allergies (Unverified , 02/13/18) Objective Last 24 Hour Vital Signs Date Time Temp Pulse Resp B/P (MAP) Pulse Ox O2 Delivery O2 Flow Rate FiO2 03/04/18 21:41 154/82 (106) 03/04/18 21:00 Room Air 03/04/18 20:00 97.1 77 20 162/80 (107) 97 97.1 03/04/18 09:00 Room Air 03/04/18 08:00 97.8 68 19 140/66 (90) 98 97.8 03/04/18 04:00 97.6 66 20 144/64 (90) 98 97.6 03/04/18 00:00 98.1 64 18 135/59 (84) 98 98.1 Intake and Output 03/03/18 03/04/18 19:00 07:00 Intake Total 400 ml 1040 ml Output Total 350 ml 1700 ml Balance 50 ml -660 ml Intake Oral 440 ml IV Total 400 ml 600 ml Output Urine Total 350 ml 1700 ml # Bowel Movements 1 2 Laboratory Tests 03/04/18 06:20: White Blood Count 3.1L, Red Blood Count 2.80L, Hemoglobin 8.5L, Hematocrit 25.2L , Mean Corpuscular Volume 90, Mean Corpuscular Hemoglobin 30.3, Mean Corpuscular Hemoglobin Concent 33.7, Red Cell Distribution Width 14.0, Platelet Count 95L, Mean Platelet Volume 8.7, Neutrophils (%) (Auto) , Lymphocytes (%) ( Auto) , Monocytes (%) (Auto) , Eosinophils (%) (Auto) , Basophils (%) (Auto) , Differential Total Cells Counted 100, Neutrophils % (Manual) 66, Lymphocytes % ( Manual) 27, Monocytes % (Manual) 6, Eosinophils % (Manual) 1, Basophils % ( Manual) 0, Band Neutrophils 0, Platelet Estimate DecreasedL, Platelet Morphology Normal, Hypochromasia 2+, Anisocytosis 1+, Sodium Level 139, Potassium Level 5.3H, Chloride Level 108H, Carbon Dioxide Level 24, Anion Gap 7 , Blood Urea Nitrogen 47H, Creatinine 1.9H, Estimat Glomerular Filtration Rate , Glucose Level 187H, Calcium Level 7.9L, Magnesium Level 1.7L 03/04/18 10:10: Ammonia 27 Height (Feet): 6 Height (Inches): 2.00 Weight (Pounds): 224 General Appearance: no apparent distress, alert, agitated Joey Matson MD Mar 04, 2018 22:08
[2018-03-05] VITALS: BP 158/84
[2018-03-05 04:00] VITALS: BP 153/61
[2018-03-05] MEDS: Levothyroxine 25mcg tab ORAL SCH (05:49)
[2018-03-05] MEDS: Levemir Flexpen SUBQ SCH (05:50)
[2018-03-05] MEDS: NovoLOG Insulin Flexpen SUBQ SCH ×3 (05:50→17:36)
[2018-03-05 08:00] VITALS: BP 146/68
[2018-03-05 08:26] LABS: HEMATOCRIT 26.9 % (42.0-52.0); MEAN CORPUSCULAR VOLUME 89 FL (80-99); PLATELET COUNT 116 K/UL (150-450); RED BLOOD COUNT 3.01 M/UL (4.70-6.10); RED CELL DISTRIBUTION WIDTH 13.7 % (11.6-14.8); WHITE BLOOD COUNT 3.1 K/UL (4.8-10.8)
[2018-03-05 08:29] LABS: HEMOGLOBIN 9.1 G/DL (14.2-18.0)
[2018-03-05 08:42] LABS: ANION GAP 8 mmol/L (5-15); BLOOD UREA NITROGEN 42 mg/dL (7-18); CALCIUM 8.1 MG/DL (8.5-10.1); CARBON DIOXIDE 27 MMOL/L (21-32); CHLORIDE 107 MMOL/L (98-107); CREATININE 1.8 MG/DL (0.55-1.30); POTASSIUM 4.6 MMOL/L (3.5-5.1); SODIUM 141 MMOL/L (136-145)
[2018-03-05] MEDS: Tamsulosin 0.4mg cap ORAL SCH (09:34)
[2018-03-05] MEDS: Aspirin EC 81mg tab ORAL SCH (09:34)
[2018-03-05] MEDS: Docusate 100mg cap ORAL SCH ×3 (09:34→17:28)
[2018-03-05 12:00] VITALS: BP 140/61
[2018-03-05] MEDS ORDERED: Isovue-300 100ml vial INJ PRN (12:30)
--- NOTE | 2018-03-05 12:31 | GI Initial Consult Note ---
History of Present Illness General Date patient seen: Mar 05, 2018 Time patient seen: 13:49 Reason for Hospitalization: Altered Level of Consciousness Referring physician: DUDLEY TREVINO Reason for Consultation: CIRRHOSIS Present Illness HPI Is a 78-year-old male coming from senior care. 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 He presents with chief complaint of increasing weakness and failure to thrive. Onset for last 4 days. He said he fell 3 days ago. No head injury. No nausea no vomiting. Has left arm pain. No fever or chills. Denies any other complaint. No focal deficit. Pain is 3 out of 10. GI consulted for evaluation of cirrhosis based on recent abdominal U/S. Pt seen , awake A&O NAD with no active s/sx of N/V/D. Denies any abdominal pain. Denies any use of tobacco, alcohol of drugs. Denies any constipation. Tolerating diet. A recent abdominal US showed coarsened hepatic echogenicity, surface nodularity suggestive of cirrhosis and a 14 x 4 mm nodule hypoechoic structure at the tip of the right hepatic lobe, not definitely evident previously. Labs reviewed show anemia and electrolyte imbalance. Unknown history of endoscopy / colonoscopy. Home Meds Active Scripts Quetiapine Fumarate* (SEROQUEL*) 25 Mg Tablet, 25 MG ORAL Q12HR for 5 Days, #10 TAB Prov:Gavino Amaya MD 02/17/18 Reported Medications Insulin Aspart* (NOVOLOG*) 100 Unit/1 Ml Insuln.pen, SUBQ, #1 EA 0 Refills 02/13/18 Docusate Sodium* (DOCUSATE SODIUM*) 100 Mg Capsule, 100 MG ORAL DAILY, CAP 02/13/18 Acetaminophen* (ACETAMINOPHEN 325MG TABLET*) 325 Mg Tablet, 650 MG ORAL Q6H PRN for Mild Pain/Temp > 100.5, TAB 02/13/18 Sitagliptin (Januvia) 100 Mg Tablet, 100 MG ORAL DAILY, TAB 02/13/18 Levothyroxine Sodium* (SYNTHROID*) 25 Mcg Tablet, 25 MCG ORAL DAILY, TAB Take in the morning on an empty stomach, at least 30 minutes before food. 02/13/18 Levetiracetam (KEPPRA) 750 Mg Tablet, 1500 MG ORAL BID for SEIZURES, TAB 02/13/18 [Lispro 100 Units/Ml] No Conflict Check, 3 UNITS SUBQ TID 02/13/18 Insulin Glargine (LANTUS) 100 Unit/1 Ml Insuln.pen, 10 UNITS SUBQ BEDTIME, #1 EA 0 Refills 02/13/18 Insulin Glargine (LANTUS) 100 Unit/1 Ml Insuln.pen, 30 UNITS SUBQ BEFORE BREAKFAST, #1 EA 0 Refills 02/13/18 Glipizide* (GLUCOTROL*) 10 Mg Tablet, 10 MG ORAL ACBREAKFAST, #10 TAB 0 Refills 02/13/18 Atorvastatin Calcium* (ATORVASTATIN CALCIUM*) 40 Mg Tablet, 40 MG ORAL BEDTIME, TAB 02/13/18 Aspirin Ec* (ASPIRIN EC*) 81 Mg Tablet.dr, 81 MG ORAL DAILY, TAB 02/13/18 Risperidone* (RISPERDAL*) 0.5 Mg Tablet, 1.5 MG ORAL BID, #30 TAB 0 Refills 02/13/18 Discontinued Reported Medications Lisinopril* (LISINOPRIL*) 10 Mg Tablet, 10 MG ORAL DAILY, TAB 02/13/18 Med list reviewed/reconciled: Yes Allergies: Coded Allergies: No Known Allergies (Unverified , 02/13/18) Patient History Limited by: medical condition History Provided By: Medical Record PMH Narrative Past Medical History: see triage record, old chart reviewed, DM, HTN, CVA/TIA Past Surgical History: other Pertinent Family History: none Social History: Denies: smoking Immunizations: other Reviewed Nursing Documentation: PMH: Agreed; PSxH: Agreed Nursing Documentation-PMH Hx Hypertension: Yes Hx Diabetes: Yes Hx Cerebrovascular Accident: Yes - left Hx Seizures: Yes Social History: Denies: smoking, alcohol use, drug use, other Review of Systems All Other Systems: negative except mentioned in HPI Physical Exam Vital Signs Date Time Temp Pulse Resp B/P (MAP) Pulse Ox O2 Delivery O2 Flow Rate FiO2 03/01/18 22:06 98.2 83 18 150/61 98 Room Air 98.2 03/01/18 23:50 3.0 Sp02 EP Interpretation: reviewed, normal Labs Laboratory Tests Test 03/05/18 07:05 White Blood Count 3.1 K/UL (4.8-10.8) L Red Blood Count 3.01 M/UL (4.70-6.10) L Hemoglobin 9.1 G/DL (14.2-18.0) L Hematocrit 26.9 % (42.0-52.0) L Mean Corpuscular Volume 89 FL (80-99) Mean Corpuscular Hemoglobin 30.2 PG (27.0-31.0) Mean Corpuscular Hemoglobin Concent 33.8 G/DL (32.0-36.0) Red Cell Distribution Width 13.7 % (11.6-14.8) Platelet Count 116 K/UL (150-450) L Mean Platelet Volume 6.9 FL (6.5-10.1) Neutrophils (%) (Auto) % (45.0-75.0) Lymphocytes (%) (Auto) % (20.0-45.0) Monocytes (%) (Auto) % (1.0-10.0) Eosinophils (%) (Auto) % (0.0-3.0) Basophils (%) (Auto) % (0.0-2.0) Differential Total Cells Counted 100 Neutrophils % (Manual) 57 % (45-75) Lymphocytes % (Manual) 35 % (20-45) Monocytes % (Manual) 3 % (1-10) Eosinophils % (Manual) 1 % (0-3) Basophils % (Manual) 0 % (0-2) Band Neutrophils 4 % (0-8) Platelet Estimate Decreased L Platelet Morphology Normal Anisocytosis 1+ Sodium Level 141 MMOL/L (136-145) Potassium Level 4.6 MMOL/L (3.5-5.1) Chloride Level 107 MMOL/L (98-107) Carbon Dioxide Level 27 MMOL/L (21-32) Anion Gap 8 mmol/L (5-15) Blood Urea Nitrogen 42 mg/dL (7-18) H Creatinine 1.8 MG/DL (0.55-1.30) H Estimat Glomerular Filtration Rate mL/min (>60) Glucose Level 129 MG/DL (74-106) H Calcium Level 8.1 MG/DL (8.5-10.1) L Magnesium Level 1.6 MG/DL (1.8-2.4) L General Appearance: well appearing, no apparent distress, alert Head: normocephalic EENT: PERRL/EOMI, normal ENT inspection Neck: supple Respiratory: normal breath sounds, no respiratory distress Cardiovascular: normal rate Gastrointestinal: normal inspection, non tender, soft, normal bowel sounds, non -distended Rectal: deferred Genitourinary: deferred Musculoskeletal: normal inspection, back normal Neurologic: alert, responsive Psychiatric: normal inspection, judgement/insight normal, memory normal Skin: normal inspection, normal color, no rash, warm/dry, palpation normal, well hydrated Lymphatic: normal inspection, no adenopathy Current Medications Current Medications Medications (Trade) Dose Ordered Sig/Yoandy Route PRN Reason Start Time Stop Time Status Last Admin Dose Admin Acetaminophen (Tylenol) 650 mg Q6H PRN ORAL Mild Pain/Temp > 100.5 03/02/18 08:30 04/01/18 08:29 Aspirin (Ecotrin) 81 mg DAILY ORAL 03/02/18 09:00 04/01/18 08:59 03/05/18 09:34 Atorvastatin Calcium (Lipitor) 10 mg BEDTIME ORAL 03/02/18 21:00 04/01/18 20:59 03/04/18 20:46 Dextrose (Dextrose 50%) 25 ml Q30M PRN IV Hypoglycemia 03/02/18 02:00 04/01/18 01:59 Dextrose (Dextrose 50%) 50 ml Q30M PRN IV Hypoglycemia 03/02/18 02:00 04/01/18 01:59 Diphenhydramine HCl (Benadryl) 25 mg Q6H PRN ORAL Itching/Pruritis 03/02/18 00:15 04/01/18 00:14 03/04/18 20:46 Docusate Sodium (Colace) 100 mg TID ORAL 03/02/18 13:00 04/01/18 08:59 03/05/18 09:34 Folic Acid (Folate) 2 mg DAILY ORAL 03/03/18 09:54 04/02/18 09:53 03/05/18 09:34 Haloperidol Lactate (Haldol) 2 mg Q6H PRN IM Agitation 03/02/18 22:45 04/01/18 22:44 03/04/18 09:56 Insulin Aspart (NovoLOG) BEFORE MEALS AND HS SUBQ 03/02/18 06:30 04/01/18 06:29 03/05/18 12:09 Insulin Detemir (Levemir) 10 units BEDTIME SUBQ 03/03/18 21:00 11/2/18 20:59 03/04/18 20:48 Insulin Detemir (Levemir) 30 units BEFORE BREAKFAST SUBQ 03/03/18 06:30 04/02/18 06:29 03/05/18 05:50 Levetiracetam (Keppra) 1,500 mg Q12HR ORAL 03/02/18 09:00 04/01/18 08:59 03/05/18 09:34 Levothyroxine Sodium (Synthroid) 25 mcg Q24H ORAL 03/03/18 06:30 04/02/18 06:29 03/05/18 05:49 Pantoprazole (Protonix) 40 mg Q12HR ORAL 03/02/18 11:30 04/01/18 11:29 03/05/18 09:33 Risperidone (RisperDAL) 2 mg BEDTIME ORAL 03/03/18 21:00 04/02/18 20:59 03/04/18 20:46 Sitagliptin Phosphate (Januvia) 100 mg DAILY ORAL 03/02/18 09:00 04/01/18 08:59 03/05/18 09:34 Tamsulosin HCl (Flomax) 0.4 mg Q12HR ORAL 03/02/18 11:30 04/01/18 11:29 03/05/18 09:34 GI: Plan Problems: (1) Liver mass (2) Anemia (3) Cirrhosis (4) Schizophrenia (5) FTT (failure to thrive) in adult Plan anemia work up reviewed >> folate deficiency abdominal US reviewed >> 14 x 4 mm nodule hypoechoic structure at the tip of the right hepatic lobe, not definitely evident previously. CT AP liver protocol to evaluate liver cancelled due to elevated creatinine levels, can be done as outpatient with follow up AFP follow up DM management prn transfusions ppi fu labs Discussed with Dr. Schofield. Thank you for this patient referral, we will follow. The patient was seen and examined at bedside and all new and available data was reviewed in the patients chart. I agree with the above findings, impression and plan. (Patient seen earlier today. Signature stamp does not reflect patient encounter time.). - MD Pattie Caceres,[facility] [employer] Mar 05, 2018 12:31
--- NOTE | 2018-03-05 13:44 | Nephrology Progress Note ---
Assessment/Plan Problem List: (1) AGUILAR (acute kidney injury) (2) Acute metabolic encephalopathy (3) Anemia (4) UTI (urinary tract infection) (5) Cirrhosis Assessment Renal failure- Likely Acute- ? Undelying chronic due to DM Urinary retention Sever Anemia UTI Acute encephalopathy cirrhosis Plan kayexelate- Hydrate- Anemia avalos Transfused Kidney RANDY Negative urine studies Urine c/s flomax Surgically absent gallbladder. Negative for dilated ducts Coarsened hepatic echogenicity, surface nodularity suggestive of cirrhosis 14 x 4 mm nodule hypoechoic structure at the tip of the right hepatic lobe, not definitely evident previously. Splenomegaly Normal Kidney's no [place] Subjective ROS Limited/Unobtainable: No Constitutional: Reports: malaise, weakness Objective Objective Last 24 Hour Vital Signs Date Time Temp Pulse Resp B/P (MAP) Pulse Ox O2 Delivery O2 Flow Rate FiO2 03/05/18 12:00 97.3 69 18 140/61 (87) 97 97.3 03/05/18 10:32 Room Air 03/05/18 08:00 98.4 67 20 146/68 (94) 95 98.4 03/05/18 04:00 97.2 72 20 153/61 (91) 100 97.2 03/05/18 00:00 98.3 74 20 158/84 (108) 96 98.3 03/04/18 21:41 154/82 (106) 03/04/18 21:00 Room Air 03/04/18 20:00 97.1 77 20 162/80 (107) 97 97.1 Intake and Output 03/04/18 03/05/18 19:00 07:00 Intake Total 1200 ml 240 ml Output Total 700 ml 1800 ml Balance 500 ml -1560 ml Intake Oral 1000 ml 240 ml IV Total 200 ml Output Urine Total 700 ml 1800 ml # Bowel Movements 3 Laboratory Tests 03/05/18 07:05: White Blood Count 3.1L, Red Blood Count 3.01L, Hemoglobin 9.1L, Hematocrit 26.9L , Mean Corpuscular Volume 89, Mean Corpuscular Hemoglobin 30.2, Mean Corpuscular Hemoglobin Concent 33.8, Red Cell Distribution Width 13.7, Platelet Count 116L, Mean Platelet Volume 6.9, Neutrophils (%) (Auto) , Lymphocytes (%) ( Auto) , Monocytes (%) (Auto) , Eosinophils (%) (Auto) , Basophils (%) (Auto) , Differential Total Cells Counted 100, Neutrophils % (Manual) 57, Lymphocytes % ( Manual) 35, Monocytes % (Manual) 3, Eosinophils % (Manual) 1, Basophils % ( Manual) 0, Band Neutrophils 4, Platelet Estimate DecreasedL, Platelet Morphology Normal, Anisocytosis 1+, Sodium Level 141, Potassium Level 4.6, Chloride Level 107, Carbon Dioxide Level 27, Anion Gap 8, Blood Urea Nitrogen 42H, Creatinine 1.8H, Estimat Glomerular Filtration Rate , Glucose Level 129H, Calcium Level 8.1L, Magnesium Level 1.6L Height (Feet): 6 Height (Inches): 2.00 Weight (Pounds): 224 General Appearance: no apparent distress Cardiovascular: normal rate Respiratory/Chest: decreased breath sounds Abdomen: distended Objective no change Juanjo Tubbs MD Mar 05, 2018 13:44
--- NOTE | 2018-03-05 15:26 | General Progress Note ---
Assessment/Plan Assessment/Plan Assessment/Recs: # Pancytopenia - cirrhosis++ and large spleen ++ in addition has evidence of cirrhosis on the us of the abdomen. Hiv and hepatitis panel on prior admission was negative --> us of the abdomen shows spenomegaly that is enlarged spleen --> anemia panel ordered as well, ferritin, tibc, folic acid, tsh, occult blood- -> consistent with anemia of chronic disease --> peripheral smear reviewed and shows no significant abnml --> r/o infectious etiology, cultures have been negative thus far --> Neupogen if ANC <1000 # Anemia of chronic disease - consistent with above diagnosis --> anemia panel reviewed --> panel has been reviewed --> hgb goal >7 # 14 x 4 mm nodule hypoechoic structure at the tip of the right hepatic lobe --> outpatient CT scan with contrast of the abdomen can be completed # Acute encephalopathy superimposed on chronic dementia, also exacerbated by sedative medications given for agitation. Unclear etiology, could be related to mild AGUILAR present on admission or occult infection. --> avoid benzos, frequent orienting, fall, aspiration precautions. --> Correct underlying AGUILAR. --> Psychiatry consulted. appreciate recs # UTI with generalized weakness --> started on abx, continue them # Mild AGUILAR, unknown etiology, improved, continue with IV fluids and repeat BMP in AM. --> Avoid nephrotic meds, given ivf # Hyperkalemia, potassium has improved from 5.7 to 5.0 --> continue to monitor daily potassium levels # History of epilepsy, will give Keppra intravenously as he is unable to take PO meds due to lethargy # type 2 DM, controlled, hold oral diabetic meds while oral intake is minimal, will give reduced dose Lantus # Hypothyroidism, continue levothyroxine - can give intravenously if he remains lethargic. # Azotemia has been reviewed # DVT ppx is ok with heparin if plt >50k GREATLY APPRECIATE CONSULTATION! Subjective Constitutional: Denies: no symptoms, chills, diaphoresis, fever, malaise, weakness, other HEENT: Denies: no symptoms, eye pain, blurred vision, tearing, double vision, ear pain, ear discharge, nose pain, nose congestion, throat pain, throat swelling, mouth pain, mouth swelling, other Cardiovascular: Denies: no symptoms, chest pain, edema, irregular heart rate, lightheadedness, palpitations, syncope, other Respiratory: Denies: no symptoms, cough, orthopnea, shortness of breath, SOB with excertion, SOB at rest, sputum, stridor, wheezing, other Gastrointestinal/Abdominal: Denies: no symptoms, abdomen distended, abdominal pain, black stools, tarry stools, blood in stool, constipated, diarrhea, difficulty swallowing, nausea, poor appetite, poor fluid intake, rectal bleeding , vomiting, other Genitourinary: Denies: no symptoms, burning, discharge, frequency, flank pain, hematuria, incontinence, pain, urgency, other Neurologic/Psychiatric: Denies: no symptoms, anxiety, depressed, emotional problems, headache, numbness, paresthesia, pre-existing deficit, seizure, tingling, tremors, weakness, other Endocrine: Denies: no symptoms, excessive sweating, flushing, intolerance to cold, intolerance to heat, increased hunger, increased thirst, increased urine, unexplained weight gain, unexplained weight loss, other Hematologic/Lymphatic: Reports: anemia Allergies: Coded Allergies: No Known Allergies (Unverified , 02/13/18) Subjective feeling better, no complaints, no f/c, on meds Objective Last 24 Hour Vital Signs Date Time Temp Pulse Resp B/P (MAP) Pulse Ox O2 Delivery O2 Flow Rate FiO2 03/05/18 12:00 97.3 69 18 140/61 (87) 97 97.3 03/05/18 10:32 Room Air 03/05/18 08:00 98.4 67 20 146/68 (94) 95 98.4 03/05/18 04:00 97.2 72 20 153/61 (91) 100 97.2 03/05/18 00:00 98.3 74 20 158/84 (108) 96 98.3 03/04/18 21:41 154/82 (106) 03/04/18 21:00 Room Air 03/04/18 20:00 97.1 77 20 162/80 (107) 97 97.1 Intake and Output 03/04/18 03/05/18 19:00 07:00 Intake Total 1200 ml 240 ml Output Total 700 ml 1800 ml Balance 500 ml -1560 ml Intake Oral 1000 ml 240 ml IV Total 200 ml Output Urine Total 700 ml 1800 ml # Bowel Movements 3 Laboratory Tests 03/05/18 07:05: White Blood Count 3.1L, Red Blood Count 3.01L, Hemoglobin 9.1L, Hematocrit 26.9L , Mean Corpuscular Volume 89, Mean Corpuscular Hemoglobin 30.2, Mean Corpuscular Hemoglobin Concent 33.8, Red Cell Distribution Width 13.7, Platelet Count 116L, Mean Platelet Volume 6.9, Neutrophils (%) (Auto) , Lymphocytes (%) ( Auto) , Monocytes (%) (Auto) , Eosinophils (%) (Auto) , Basophils (%) (Auto) , Differential Total Cells Counted 100, Neutrophils % (Manual) 57, Lymphocytes % ( Manual) 35, Monocytes % (Manual) 3, Eosinophils % (Manual) 1, Basophils % ( Manual) 0, Band Neutrophils 4, Platelet Estimate DecreasedL, Platelet Morphology Normal, Anisocytosis 1+, Sodium Level 141, Potassium Level 4.6, Chloride Level 107, Carbon Dioxide Level 27, Anion Gap 8, Blood Urea Nitrogen 42H, Creatinine 1.8H, Estimat Glomerular Filtration Rate , Glucose Level 129H, Calcium Level 8.1L, Magnesium Level 1.6L Height (Feet): 6 Height (Inches): 2.00 Weight (Pounds): 224 General Appearance: no apparent distress EENT: TMs normal Neck: normal alignment Cardiovascular: normal rate Respiratory/Chest: lungs clear Abdomen: non tender Extremities: non-tender Edema: 1+ Leg (L), 1+ Leg (R) Edema: mild edema Neurologic: alert Watson Adams MD Mar 05, 2018 15:26
--- NOTE | 2018-03-05 15:47 | Discharge Summary ---
Discharge Summary Hospital Course Date of Admission Mar 01, 2018 at 23:03 Date of Discharge 03/05/18 Admitting Diagnosis failure to thrive HPI Chip Laureano is a 78 year old male who was admitted on Mar 01, 2018 at 23:03 for Failure To Thrive Consultations Hematology Nephrology GI Hospital Course Patient [facility] from the [facility] with weakness, fatigue, confusion and acute on chronic anemia. Admitted to the medical service with AGUILAR on CKD III, acute metabolic encephalopathy and acute on chronic anemia and pancytopenia secondary to hypersplenism. We held all nephrotoxic medications and give IV hydration per Nephrology recs. Renal function improved back to baseline as did mentation. ACEI will be held upon discharge. He got 2 units of PRBC per hematology recs with improvement in H&H. With regard to nodular liver and splenomegaly he will follow up with GI as an outpatient. Discharge Medications Continued Medications: Acetaminophen* (Acetaminophen 325MG Tablet*) 325 Mg Tablet 650 MG ORAL Q6H PRN for Mild Pain/Temp > 100.5, TAB Aspirin Ec* (Aspirin Ec*) 81 Mg Tablet.dr 81 MG ORAL DAILY, TAB Atorvastatin Calcium* (Atorvastatin Calcium*) 40 Mg Tablet 40 MG ORAL BEDTIME, TAB Docusate Sodium* (Docusate Sodium*) 100 Mg Capsule 100 MG ORAL DAILY, CAP Glipizide* (Glucotrol*) 10 Mg Tablet 10 MG ORAL ACBREAKFAST, #10 TAB 0 Refills Insulin Aspart* (Novolog*) 100 Unit/1 Ml Insuln.pen Unknown Dose SUBQ, #1 EA 0 Refills Insulin Glargine (Lantus) 100 Unit/1 Ml Insuln.pen 30 UNITS SUBQ BEFORE BREAKFAST, #1 EA 0 Refills Insulin Glargine (Lantus) 100 Unit/1 Ml Insuln.pen 10 UNITS SUBQ BEDTIME, #1 EA 0 Refills Levetiracetam (Keppra) 750 Mg Tablet 1500 MG ORAL BID for SEIZURES, TAB Levothyroxine Sodium* (Synthroid*) 25 Mcg Tablet 25 MCG ORAL DAILY, TAB Take in the morning on an empty stomach, at least 30 minutes before food. [Lispro 100 Units/Ml] () 3 UNITS SUBQ TID Quetiapine Fumarate* (Seroquel*) 25 Mg Tablet 25 MG ORAL Q12HR for 5 Days, #10 TAB Risperidone* (Risperdal*) 0.5 Mg Tablet 1.5 MG ORAL BID, #30 TAB 0 Refills Sitagliptin (Januvia) 100 Mg Tablet 100 MG ORAL DAILY, TAB Discontinued Medications: Lisinopril* (Lisinopril*) 10 Mg Tablet 10 MG ORAL DAILY, TAB Discharge Discharge Disposition Patient was discharged to Discharge Diagnoses: (1) Acute metabolic encephalopathy (2) AGUILAR (acute kidney injury) (3) Pancytopenia Gavino Amaya MD Mar 05, 2018 15:47
[2018-03-05 16:00] VITALS: BP 139/77
[2018-03-05 20:00] VITALS: BP 156/74
== END 2018-03-05 20:55 | DRG 469 ==
LOC: EDBD 22:06 → EMR 22:21 → 4E 23:03 → EDBEDREQ 23:08
PROC: 30233N1 Transfusion of Nonautologous Red Blood Cells into Peripheral Vein, Percutaneous Approach (ICD-10-PCS; principal; 2018-03-02)
DX: N17.9 Acute kidney failure, unspecified (principal); G93.41 Metabolic encephalopathy; D61.818 Other pancytopenia; E11.22 Type 2 diabetes mellitus with diabetic chronic kidney disease; I69.354 Hemiplegia and hemiparesis following cerebral infarction affecting left non-dominant side; N18.3 Chronic kidney disease, stage 3 (moderate); F20.9 Schizophrenia, unspecified; D63.8 Anemia in other chronic diseases classified elsewhere; F03.90 Unspecified dementia, unspecified severity, without behavioral disturbance, psychotic disturbance, mood disturbance, and anxiety; R33.9 Retention of urine, unspecified; Z79.4 Long term (current) use of insulin; K74.60 Unspecified cirrhosis of liver; E03.9 Hypothyroidism, unspecified; R62.7 Adult failure to thrive; I12.9 Hypertensive chronic kidney disease with stage 1 through stage 4 chronic kidney disease, or unspecified chronic kidney disease; E78.5 Hyperlipidemia, unspecified
CPT/HCPCS: 36415; 70450; 71045; 76700; 80048; 80053; 80061; 80299; 81001; 82140; 82607; 82728; 82746; 82962; 83036; 83540; 83550; 83735; 83880; 84100; 84443; 84484; 84550; 85007; 85025; 86140; 86850; 86900; 86901; 86920; 87040; 87081; 87086; 87181; 92610; 93005; J1815; S5561

== ENCOUNTER 2018-03-15 11:04 | Outpatient (CLI) | payer MEDICARE, OTHER ==
--- NOTE | 2018-03-15 12:04 | Diagnostic Imaging Report ---
Indication: Headache. Head trauma Technique: Contiguous 5 mm thick transaxial imaging of the head obtained in a Siemens Sensation [address] scanner. Soft tissue and bone windows generated. Automatic Exposure Control was utilized. Total Dose length Product (DLP): 1432.[address] Dose Index Volume (CTDIvol): 70.38 mGy Comparison: none Findings: There is moderate prominence of the ventricles, basal cisterns, and cerebral sulci consistent with atrophy. Moderate, nonspecific, white matter hypoattenuation is noted throughout the brain consistent with chronic small vessel disease. There is a cavum septum pellucidum noted. There is no midline shift, edema, acute hemorrhage, mass effect, or abnormal extra-axial fluid collections. Bones and extra osseous soft tissues are unremarkable. There is mucosal thickening within the visualized paranasal sinuses. Impression: No acute intracranial bleed, mass effect or edema. Moderate atrophy of the brain. Evidence of chronic small vessel disease involving white matter tracts. Cavum septum pellucidum Sinusitis The CT scanner at [facility] is accredited by the [employer] and the scans are performed using dose optimization techniques as appropriate to a performed exam including Automatic Exposure control.
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
== END 2018-03-15 13:04 | disposition home or self-care (01) ==
LOC: CAT 11:04
DX: S09.90XA Unspecified injury of head, initial encounter (principal); G31.9 Degenerative disease of nervous system, unspecified; J32.9 Chronic sinusitis, unspecified; I73.89 Other specified peripheral vascular diseases
CPT/HCPCS: 70450

== ENCOUNTER 2018-03-15 20:55 | Inpatient (IN) | payer MEDICARE, OTHER ==
[~2018-03-15] VITALS: Ht 182.9 cm; Wt 110.4 kg
[2018-03-15] MEDS ORDERED: Ipratropium 0.02% Inh Soln 2.5ml UD HHN ONE (21:15)
[2018-03-15] MEDS ORDERED: Albuterol ud Inhalation HHN ONE (21:15)
[2018-03-15 21:20] VITALS: BP 155/87
[2018-03-15 22:07] LABS: HEMATOCRIT 25.2 % (42.0-52.0); HEMOGLOBIN 8.6 G/DL (14.2-18.0); MEAN CORPUSCULAR VOLUME 94 FL (80-99); PLATELET COUNT 110 K/UL (150-450); RED BLOOD COUNT 2.69 M/UL (4.70-6.10); RED CELL DISTRIBUTION WIDTH 13.5 % (11.6-14.8); WHITE BLOOD COUNT 3.4 K/UL (4.8-10.8)
[2018-03-15 22:11] LABS: ANION GAP 6 mmol/L (5-15); BLOOD UREA NITROGEN 51 mg/dL (7-18); CALCIUM 8.4 MG/DL (8.5-10.1); CARBON DIOXIDE 27 MMOL/L (21-32); CHLORIDE 111 MMOL/L (98-107); POTASSIUM 5.7 MMOL/L (3.5-5.1); SODIUM 144 MMOL/L (136-145)
[2018-03-15 22:15] LABS: ALANINE AMINOTRANSFERASE 23 U/L (12-78); ALBUMIN 2.6 G/DL (3.4-5.0); ALBUMIN/GLOBULIN RATIO 0.7 (1.0-2.7); ALKALINE PHOSPHATASE 87 U/L (46-116); ASPARTATE AMINO TRANSFERASE 16 U/L (15-37); BILIRUBIN,TOTAL 0.2 MG/DL (0.2-1.0)
[2018-03-15 22:27] VITALS: BP 152/85
[2018-03-15] MEDS ORDERED: Insulin Human Regular 100units/ml 3ml IV ONE (22:45)
[2018-03-15] MEDS ORDERED: Sodium Polystyrene Sulfonate 15gm Powder ORAL ONE (22:45)
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
[2018-03-15 23:43] LABS: APPEARANCE,URINE CLEAR; BILIRUBIN, URINE NEGATIVE (NEGATIVE); COLOR,URINE PALE YELLOW; GLUCOSE, URINE (UA) 1+ (NEGATIVE); KETONES,URINE NEGATIVE (NEGATIVE); LEUKOCYTE ESTERASE ,URINE NEGATIVE (NEGATIVE); NITRITE,URINE NEGATIVE (NEGATIVE); PH,URINE 5 (4.5-8.0); PROTEIN,URINE 3+ (NEGATIVE); UROBILINOGEN,URINE NORMAL MG/DL (0.0-1.0)
[2018-03-16 00:45] VITALS: BP 152/86
[2018-03-16 04:00] VITALS: BP 152/72
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
[2018-03-16 08:00] VITALS: BP 160/80
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
--- NOTE | 2018-03-16 11:22 | Consultation ---
History of Present Illness General Chief Complaint: General Complaint Present Illness HPI 78 year old man with dementia, DM2, epilepsy, dyslipidemia, schizophrenia, hypothyroidism and cognitive impairment. the pt is alert and oriented to self and place however agitated and paranoid. the pt was taking Risperdal and depakote outside of the hospital. the pt is a poor historian. the pt has poor memory Allergies: Coded Allergies: No Known Allergies (Unverified , 02/13/18) Medication History Scheduled Aspirin Ec* (Aspirin Ec*), 81 MG ORAL DAILY, (Reported) Atorvastatin Calcium* (Atorvastatin Calcium*), 40 MG ORAL BEDTIME, (Reported) Docusate Sodium* (Docusate Sodium*), 100 MG ORAL DAILY, (Reported) Glipizide* (Glucotrol*), 10 MG ORAL ACBREAKFAST, (Reported) Insulin Glargine (Lantus), 30 UNITS SUBQ BEFORE BREAKFAST, (Reported) Insulin Glargine (Lantus), 10 UNITS SUBQ BEDTIME, (Reported) Levetiracetam (Keppra), 1,500 MG ORAL BID, (Reported) Levothyroxine Sodium* (Synthroid*), 25 MCG ORAL DAILY, (Reported) Quetiapine Fumarate* (Seroquel*), 25 MG ORAL Q12HR Risperidone* (Risperdal*), 1.5 MG ORAL BID, (Reported) Sitagliptin (Januvia), 100 MG ORAL DAILY, (Reported) [Lispro 100 Units/Ml], 3 UNITS SUBQ TID, (Reported) Scheduled PRN Acetaminophen* (Acetaminophen 325MG Tablet*), 650 MG ORAL Q6H PRN for Mild Pain/ Temp > 100.5, (Reported) Miscellaneous Medications Insulin Aspart* (Novolog*), Unknown Dose SUBQ, (Reported) Patient History Limited by: medical condition History Provided By: Patient, Medical Record Healthcare decision maker Resuscitation status Full Code Advanced Directive on File Past Medical/Surgical History Past Medical/Surgical History: (1) Schizophrenia (2) Cirrhosis (3) Liver mass (4) Pancytopenia (5) Hyperkalemia (6) Acute on chronic renal failure (7) Dehydration (8) Hyperkalemia (9) Generalized weakness (10) Hand injury (11) Weakness (12) FTT (failure to thrive) in adult (13) Unable to obtan due to encephalopathy (14) Anemia (15) Agitation (16) Acute metabolic encephalopathy (17) AGUILAR (acute kidney injury) Review of Systems Psychiatric: Reports: prior hx, anxiety, depressed feelings, emotional problems Physical Exam General Appearance: alert Neurologic: oriented x 3, responsive, depressed affect Last 24 Hour Vital Signs Date Time Temp Pulse Resp B/P (MAP) Pulse Ox O2 Delivery O2 Flow Rate FiO2 03/16/18 09:00 Room Air 03/16/18 08:00 97.5 80 19 160/80 (106) 96 97.5 03/16/18 04:00 98.1 72 19 152/72 (98) 96 98.1 03/16/18 03:30 76 03/16/18 01:47 Room Air 03/16/18 00:45 98.3 81 16 152/86 97 Room Air 98.3 03/16/18 00:43 98.3 75 14 152/85 97 Room Air 21 98.3 03/15/18 22:27 75 14 152/85 97 Room Air 03/15/18 21:27 78 18 100 Room Air 21 03/15/18 21:20 98.3 79 15 155/87 96 Room Air 98.3 03/15/18 21:14 74 18 Room Air 21 03/15/18 21:14 74 18 99 Room Air 21 03/15/18 20:48 97.5 79 14 160/90 96 Room Air 97.5 Intake and Output 03/15/18 03/16/18 19:00 07:00 Intake Total 300 ml Output Total 300 ml Balance 0 ml Intake Oral 300 ml Output Urine Total 300 ml # Voids 1 Laboratory Tests Test 03/15/18 21:45 03/15/18 23:30 White Blood Count 3.4 K/UL (4.8-10.8) L Red Blood Count 2.69 M/UL (4.70-6.10) L Hemoglobin 8.6 G/DL (14.2-18.0) L Hematocrit 25.2 % (42.0-52.0) L Mean Corpuscular Volume 94 FL (80-99) Mean Corpuscular Hemoglobin 32.1 PG (27.0-31.0) H Mean Corpuscular Hemoglobin Concent 34.3 G/DL (32.0-36.0) Red Cell Distribution Width 13.5 % (11.6-14.8) Platelet Count 110 K/UL (150-450) L Mean Platelet Volume 6.4 FL (6.5-10.1) L Neutrophils (%) (Auto) % (45.0-75.0) Lymphocytes (%) (Auto) % (20.0-45.0) Monocytes (%) (Auto) % (1.0-10.0) Eosinophils (%) (Auto) % (0.0-3.0) Basophils (%) (Auto) % (0.0-2.0) Differential Total Cells Counted 100 Neutrophils % (Manual) 54 % (45-75) Lymphocytes % (Manual) 37 % (20-45) Monocytes % (Manual) 6 % (1-10) Eosinophils % (Manual) 2 % (0-3) Basophils % (Manual) 1 % (0-2) Band Neutrophils 0 % (0-8) Platelet Estimate Decreased L Platelet Morphology Normal Hypochromasia 1+ Anisocytosis 1+ Sodium Level 144 MMOL/L (136-145) Potassium Level 5.7 MMOL/L (3.5-5.1) H Chloride Level 111 MMOL/L (98-107) H Carbon Dioxide Level 27 MMOL/L (21-32) Anion Gap 6 mmol/L (5-15) Blood Urea Nitrogen 51 mg/dL (7-18) H Creatinine 2.0 MG/DL (0.55-1.30) H Estimat Glomerular Filtration Rate mL/min (>60) Glucose Level 204 MG/DL (74-106) H Calcium Level 8.4 MG/DL (8.5-10.1) L Total Bilirubin 0.2 MG/DL (0.2-1.0) Aspartate Amino Transf (AST/SGOT) 16 U/L (15-37) Alanine Aminotransferase (ALT/SGPT) 23 U/L (12-78) Alkaline Phosphatase 87 U/L (46-116) Total Protein 6.4 G/DL (6.4-8.2) Albumin 2.6 G/DL (3.4-5.0) L Globulin 3.8 g/dL Albumin/Globulin Ratio 0.7 (1.0-2.7) L Lipase 141 U/L (73-393) Urine Color Pale yellow Urine Appearance Clear Urine pH 5 (4.5-8.0) Urine Specific [place] 1.015 (1.005-1.035) Urine Protein 3+ (NEGATIVE) H Urine Glucose (UA) 1+ (NEGATIVE) H Urine Ketones Negative (NEGATIVE) Urine Blood Negative (NEGATIVE) Urine Nitrite Negative (NEGATIVE) Urine Bilirubin Negative (NEGATIVE) Urine Urobilinogen Normal MG/DL (0.0-1.0) Urine Leukocyte Esterase Negative (NEGATIVE) Urine RBC 0-2 /HPF (0 - 0) H Urine WBC 0 /HPF (0 - 0) Urine Squamous Epithelial Cells Few /LPF (NONE/OCC) Urine Bacteria None /HPF (NONE) Height (Feet): 6 Height (Inches): 0.00 Weight (Pounds): 165 Medications Current Medications Medications (Trade) Dose Ordered Sig/Yoandy Route PRN Reason Start Time Stop Time Status Last Admin Dose Admin Acetaminophen (Tylenol) 650 mg Q6H PRN ORAL Mild Pain/Temp > 100.5 03/16/18 03:00 04/15/18 02:59 Assessment/Plan Problem List: (1) Schizophrenia ICD Codes: F20.9 - Schizophrenia, unspecified SNOMED: [id number] Status: stable Assessment/Plan -risperdal 1mg po qhs -depakote er 500mg po qhs -provided ro/Joey Barajas MD Mar 16, 2018 11:22
[2018-03-16 12:00] VITALS: BP 155/72
[2018-03-16] MEDS ORDERED: LORazepam 0.5mg tab ORAL PRN (12:14)
--- NOTE | 2018-03-16 12:16 | Diagnostic Imaging Report ---
Indication: Chest pain Technique: One view of the chest Comparison: 03/01/2018 Findings: Small amount of pleural fluid is present on the right. There is probably some atelectasis at the right lung base as well. The remainder of the lungs and pleural spaces are clear. The heart is upper limits normal in size. There are degenerative changes of the thoracic spine. There is anterior cervical fusion hardware. Cholecystectomy clips Impression: Small right pleural effusion and right basilar atelectasis, new since prior study of 03/01/2018
--- NOTE | 2018-03-16 12:19 | Diagnostic Imaging Report ---
Indication: Hand pain Technique: 3 views right hand Comparison: none Findings: There is deformity, probably on the basis of old trauma, of the base of the first metacarpal. There is narrowing of the first carpometacarpal joint and some degenerative remodeling of the trapezium. No acute fractures. No dislocations. The joint spaces are preserved otherwise. Impression: No acute bony trauma Evidence of old first metacarpal fracture and secondary degenerative change
--- NOTE | 2018-03-16 15:23 | Cardiology Report ---
APPROVED REPORT EKG Measurement Heart [id number] Normal sinus rhythm Normal ECG
--- NOTE | 2018-03-16 15:35 | Cardiology Report ---
APPROVED REPORT EXAM: Two-dimensional and M-mode echocardiogram with Doppler and color Doppler. INDICATION OTHER M-Mode DIMENSIONS IVSd1.4 (0.7-1.1cm)Left Atrium (MM)3.7 (1.6-4.0cm) LVDd6.2 (3.5-5.6cm)Aortic Root3.7 (2.0-3.7cm) PWd1.3 (0.7-1.1cm)Aortic Cusp Exc.1.8 (1.5-2.0cm) IVSs1.5 cm LVDs4.2 (2.5-4.0cm) PWs2.3 cm Normal left ventricular chamber size, systolic function and wall motion except mild inferolateral wall hypokinesis . Left ventricular ejection fraction estimated to be 55-60 %. Mild left ventricular hypertrophy by 2-D. No evidence of pericardial effusion. Mild bi-atrial enlargement . Right ventricular chamber sizes is within normal limits. Focal aortic valve sclerosis with adequate cusp excursion. Mildly Thickened mitral valve leaflets with normal excursion. Mildly Mitral annulus and aortic root calcification. Pulmonic valve not well visualized. Normal tricuspid valve structure. IVC dilated at size 3.0 without physiologic collapse suggestive of increased RA pressure. A color flow and spectral Doppler study was performed and revealed: Mild aortic insufficiency.Aoretic vavle peak gradient 14, mean gradient 7 mmhg Moderate mitral regurgitation. Mitral diastolic velocities suggest reduced left ventricular relaxation c/w diastolic dysfunction grade 1. Trace tricuspid regurgitation. Tricuspid systolic velocities suggests peak right ventricular systolic pressure of 24 mmHg.
[2018-03-16 16:00] VITALS: BP 165/74
--- NOTE | 2018-03-16 16:16 | Diagnostic Imaging Report ---
Indication: Reason For Exam: PAIN Technique: 3 views left hand Comparison: none Findings: Exam is limited; per technologist, patient would not cooperate with positioning, so no true AP or lateral view is available. Tiny ossific density is seen overlying a small defect in the radial styloid. The bones are osteoporotic. There is a fracture deformity of the first distal phalanx, with a partial lucency running through it. There is a well-corticated ossific density anterior to the base of the first distal phalanx. There are degenerative changes of the first interphalangeal joint. No other acute fractures. No dislocations. There is degenerative change of the first carpometacarpal joint. The remaining joint spaces are preserved Impression: Limited exam, as described Possible tiny small chip or avulsion fracture of the radial styloid, acuity indeterminate Acuity indeterminate fracture deformity of the base of the first distal phalanx. Correlate with clinical findings Degenerative changes, as described Findings discussed by phone with patient's nurse at the time of interpretation
[2018-03-16] MEDS ORDERED: LORazepam Inj 2mg/ml 1ml IV PRN (17:00)
[2018-03-16] MEDS: Insulin NovoLOG Flexpen S/S (Mod) SUBQ SCH ×2 (17:39→21:00)
[2018-03-16] MEDS ORDERED: Albuterol/Ipratropium 3ml neb HHN PRN (18:00)
[2018-03-16 20:00] VITALS: BP 160/80
[2018-03-16] MEDS ORDERED: Depakote ER 500mg tab ORAL SCH (21:00)
[2018-03-16] MEDS ORDERED: Atorvastatin 20mg tab ORAL SCH (21:00)
[2018-03-16] MEDS ORDERED: Levemir Flexpen SUBQ SCH (21:00)
[2018-03-16] MEDS: Heparin 5000 units/ml inj SUBQ SCH (22:28)
[2018-03-17] VITALS: BP 145/74
[2018-03-17 04:00] VITALS: BP 115/65
[2018-03-17] MEDS ORDERED: Levothyroxine 25mcg tab ORAL SCH (06:30)
[2018-03-17] MEDS: Insulin NovoLOG Flexpen S/S (Mod) SUBQ SCH ×3 (06:34→17:37)
[2018-03-17 08:00] VITALS: BP 157/98
--- NOTE | 2018-03-17 08:09 | Consultation ---
Consult Note Consult Note 78 yo male with recent fall and c/o left hand pain xray show age indeterminant small radial styloid chip fracture and likely old first distal phalanx chip fracture no swelling or decreased ROM. is painful when ambulating with walker recommend removable thumb spica brace (not splint/cast) that pt can wear when using walker. no sx, WBAT. can wean from brace once pain improved Emma Zhong Mar 17, 2018 08:09
[2018-03-17] MEDS: Heparin 5000 units/ml inj SUBQ SCH (09:00)
[2018-03-17] MEDS ORDERED: Levemir Flexpen SUBQ SCH (09:00)
[2018-03-17] MEDS ORDERED: Aspirin EC 81mg tab ORAL SCH (09:00)
[2018-03-17] MEDS ORDERED: Docusate 100mg cap ORAL SCH (09:00)
--- NOTE | 2018-03-17 10:58 | General Progress Note ---
Assessment/Plan Problem List: (1) Schizophrenia ICD Codes: F20.9 - Schizophrenia, unspecified SNOMED: 75971361 Status: stable Assessment/Plan the pt lacks capacity to make decisions the pt is illogical. Subjective Date patient seen: Mar 17, 2018 Neurologic/Psychiatric: Reports: anxiety, depressed, emotional problems Allergies: Coded Allergies: No Known Allergies (Unverified , 02/13/18) Subjective The pt was irritable and a poor historian. the pt was delusional and grandiose. The pt stated that he does not need to take meds Objective Last 24 Hour Vital Signs Date Time Temp Pulse Resp B/P (MAP) Pulse Ox O2 Delivery O2 Flow Rate FiO2 03/17/18 09:00 Room Air 03/17/18 08:58 97 Nasal Cannula 2.0 28 03/17/18 08:58 67 18 Room Air 21 03/17/18 08:58 Nasal Cannula 2.0 28 03/17/18 08:00 96.6 79 18 157/98 (117) 97 96.6 03/17/18 04:00 97.1 62 18 115/65 (82) 98 97.1 03/17/18 00:00 97.5 63 20 145/74 (97) 99 97.5 03/16/18 21:00 Room Air 03/16/18 20:00 70 18 Room Air 21 03/16/18 20:00 97.5 80 20 160/80 (106) 97 97.5 03/16/18 20:00 78 03/16/18 16:00 70 03/16/18 16:00 98.1 72 20 165/74 (104) 100 98.1 03/16/18 12:00 98.3 67 19 155/72 (99) 96 98.3 03/16/18 12:00 66 Intake and Output 03/16/18 03/17/18 19:00 07:00 Intake Total 480 ml 360 ml Output Total 400 ml Balance 480 ml -40 ml Intake Oral 480 ml 360 ml Output Urine Total 400 ml # Voids 3 # Bowel Movements 2 Laboratory Tests 03/16/18 21:45: Alpha Fetoprotein 1.0 Height (Feet): 6 Height (Inches): 0.00 Weight (Pounds): 243 General Appearance: no apparent distress, alert, confused, agitated Neurologic: depressed affect Joey Matson MD Mar 17, 2018 10:58
[2018-03-17 12:00] VITALS: BP 179/85
--- NOTE | 2018-03-17 13:53 | General Progress Note ---
Assessment/Plan Status: stable Assessment/Plan # Pancytopenia - cirrhosis++ and large spleen ++ in addition has evidence of cirrhosis on the us of the abdomen. Hiv and hepatitis panel on prior admission was negative --> us of the abdomen shows spenomegaly that is enlarged spleen --> anemia panel ordered as well, ferritin, tibc, folic acid, tsh, occult blood- -> consistent with anemia of chronic disease --> peripheral smear reviewed and shows no significant abnml --> r/o infectious etiology, cultures have been negative thus far --> Neupogen if ANC <1000 # Anemia of chronic disease - consistent with above diagnosis --> anemia panel reviewed --> panel has been reviewed --> hgb goal >7 # 14 x 4 mm nodule hypoechoic structure at the tip of the right hepatic lobe --> outpatient CT scan with contrast of the abdomen can be completed --> AFP has been ordered # Acute encephalopathy superimposed on chronic dementia, also exacerbated by sedative medications given for agitation. Unclear etiology, could be related to mild AGUILAR present on admission or occult infection. --> avoid benzos, frequent orienting, fall, aspiration precautions. --> Correct underlying AGUILAR. --> Psychiatry consulted. appreciate recs # UTI with generalized weakness --> started on abx, continue them # Mild AGUILAR, unknown etiology, improved, continue with IV fluids and repeat BMP in AM. --> Avoid nephrotic meds, given ivf # Hyperkalemia, potassium has improved from 5.7 --> continue to monitor daily potassium levels # Epilepsy hx, will give Keppra intravenously as he is unable to take PO meds due to lethargy # Type 2 DM, controlled, hold oral diabetic meds while oral intake is minimal, will give reduced dose Lantus # Hypothyroidism, continue levothyroxine --> can give intravenously if he remains lethargic. # Azotemia has been reviewed # DVT ppx is ok with heparin if plt >50k GREATLY APPRECIATE CONSULTATION! Subjective Date patient seen: Mar 17, 2018 Hematologic/Lymphatic: Reports: anemia Allergies: Coded Allergies: No Known Allergies (Unverified , 02/13/18) All Systems: reviewed and negative except above Subjective Pt awake and alert. No acute events. DC planning. Objective Last 24 Hour Vital Signs Date Time Temp Pulse Resp B/P (MAP) Pulse Ox O2 Delivery O2 Flow Rate FiO2 03/17/18 12:00 67 03/17/18 12:00 96.3 65 18 179/85 (116) 100 96.3 03/17/18 09:00 Room Air 03/17/18 08:58 97 Nasal Cannula 2.0 28 03/17/18 08:58 67 18 Room Air 21 03/17/18 08:58 Nasal Cannula 2.0 28 03/17/18 08:00 96.6 79 18 157/98 (117) 97 96.6 03/17/18 04:00 97.1 62 18 115/65 (82) 98 97.1 03/17/18 00:00 97.5 63 20 145/74 (97) 99 97.5 03/16/18 21:00 Room Air 03/16/18 20:00 70 18 Room Air 21 03/16/18 20:00 97.5 80 20 160/80 (106) 97 97.5 03/16/18 20:00 78 03/16/18 16:00 70 03/16/18 16:00 98.1 72 20 165/74 (104) 100 98.1 Intake and Output 03/16/18 03/17/18 19:00 07:00 Intake Total 480 ml 360 ml Output Total 400 ml Balance 480 ml -40 ml Intake Oral 480 ml 360 ml Output Urine Total 400 ml # Voids 3 # Bowel Movements 2 Laboratory Tests 03/16/18 21:45: Alpha Fetoprotein 1.0 03/17/18 13:10: Sodium Level [Pending], Potassium Level [Pending], Chloride Level [Pending], Carbon Dioxide Level [Pending], Blood Urea Nitrogen [Pending], Creatinine [ Pending], Estimat Glomerular Filtration Rate [Pending], Glucose Level [Pending] , Calcium Level [Pending] Height (Feet): 6 Height (Inches): 0.00 Weight (Pounds): 243 General Appearance: no apparent distress, alert EENT: PERRL/EOMI Neck: normal alignment Cardiovascular: normal peripheral pulses, irregularly irregular Respiratory/Chest: normal breath sounds Abdomen: soft Watson Adams MD Mar 17, 2018 13:53
[2018-03-17 14:06] LABS: ANION GAP 8 mmol/L (5-15); BLOOD UREA NITROGEN 47 mg/dL (7-18); CALCIUM 8.6 MG/DL (8.5-10.1); CARBON DIOXIDE 27 MMOL/L (21-32); CHLORIDE 108 MMOL/L (98-107); CREATININE 1.7 MG/DL (0.55-1.30); POTASSIUM 5.2 MMOL/L (3.5-5.1); SODIUM 142 MMOL/L (136-145)
[2018-03-17 16:00] VITALS: BP 143/69
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
--- NOTE | 2018-03-21 22:22 | Diagnostic Imaging Report ---
APPROVED REPORT CPT Code: 01316 Present Symptoms Comments: BILATERAL LEGS PAIN. BILATERAL: Imaging reveals a patent deep venous system bilaterally. There is no evidence of thrombus within the femoral, popliteal or tibial segments. The greater saphenous veins are also within normal limits. Doppler indicates normal spontaneous flow within these segments. Edema noted in bilateral calf.
== END 2018-03-17 20:25 | DRG 422 ==
LOC: EDBD 20:55 → EMR 22:06 → 2E 22:08 → EDBEDREQSVC 22:35 → EDBEDREQ 22:37
DX: E87.5 Hyperkalemia (principal); E86.0 Dehydration; G93.40 Encephalopathy, unspecified; N17.9 Acute kidney failure, unspecified; D61.818 Other pancytopenia; F20.9 Schizophrenia, unspecified; E11.9 Type 2 diabetes mellitus without complications; D63.8 Anemia in other chronic diseases classified elsewhere; N39.0 Urinary tract infection, site not specified; S69.92XA Unspecified injury of left wrist, hand and finger(s), initial encounter; S52.512A Displaced fracture of left radial styloid process, initial encounter for closed fracture; S62.631D Displaced fracture of distal phalanx of left index finger, subsequent encounter for fracture with routine healing; V19.9XXA Pedal cyclist (driver) (passenger) injured in unspecified traffic accident, initial encounter; I10 Essential (primary) hypertension; Z86.73 Personal history of transient ischemic attack (TIA), and cerebral infarction without residual deficits; F03.90 Unspecified dementia, unspecified severity, without behavioral disturbance, psychotic disturbance, mood disturbance, and anxiety; G40.909 Epilepsy, unspecified, not intractable, without status epilepticus; E03.9 Hypothyroidism, unspecified; E78.5 Hyperlipidemia, unspecified; M79.642 Pain in left hand; K74.60 Unspecified cirrhosis of liver; Z79.4 Long term (current) use of insulin; R62.7 Adult failure to thrive
CPT/HCPCS: 36415; 71045; 80048; 80053; 80299; 81003; 82105; 82962; 83690; 85007; 85025; 87081; 93005; 93306; 93970; 94640; 94664; 94760; 96361; 96374; 96375; 99285; J1815; S5561

== ENCOUNTER 2018-04-06 10:36 | Outpatient (CLI) | payer MEDICARE, OTHER ==
[2018-04-06 10:30] VITALS: BP 144/68
--- NOTE | 2018-04-07 15:14 | GI Initial Consult Note ---
History of Present Illness General Date patient seen: Apr 06, 2018 Time patient seen: 11:00 Referring physician: DUDLEY KILPATRICK Reason for Consultation: HEPATIC NODULE Present Illness HPI GI consulted for evaluation of cirrhosis based on recent abdominal U/S. Pt seen , awake A&O NAD with no active s/sx of N/V/D. Denies any abdominal pain. Denies any use of tobacco, alcohol of drugs. Denies any constipation. Tolerating diet. A recent abdominal US showed coarsened hepatic echogenicity, surface nodularity suggestive of cirrhosis and a 14 x 4 mm nodule hypoechoic structure at the tip of the right hepatic lobe, not definitely evident previously. Labs reviewed show anemia and electrolyte imbalance. The patient presents to clinic today for follow up. Unknown history of endoscopy / colonoscopy. Home Meds Active Scripts Quetiapine Fumarate* (SEROQUEL*) 25 Mg Tablet, 25 MG ORAL Q12HR for 5 Days, #10 TAB Prov:Gavino Amaya MD 02/17/18 Reported Medications Sitagliptin (Januvia) 100 Mg Tablet, 100 MG ORAL DAILY, TAB 02/13/18 Levothyroxine Sodium* (SYNTHROID*) 25 Mcg Tablet, 25 MCG ORAL DAILY, TAB Take in the morning on an empty stomach, at least 30 minutes before food. 02/13/18 Levetiracetam (KEPPRA) 750 Mg Tablet, 1500 MG ORAL BID for SEIZURES, TAB 02/13/18 [Lispro 100 Units/Ml] No Conflict Check, 3 UNITS SUBQ TID 02/13/18 Insulin Glargine (LANTUS) 100 Unit/1 Ml Insuln.pen, 10 UNITS SUBQ BEDTIME, #1 EA 0 Refills 02/13/18 Insulin Glargine (LANTUS) 100 Unit/1 Ml Insuln.pen, 30 UNITS SUBQ BEFORE BREAKFAST, #1 EA 0 Refills 02/13/18 Glipizide* (GLUCOTROL*) 10 Mg Tablet, 10 MG ORAL ACBREAKFAST, #10 TAB 0 Refills 02/13/18 Atorvastatin Calcium* (ATORVASTATIN CALCIUM*) 40 Mg Tablet, 40 MG ORAL BEDTIME, TAB 02/13/18 Aspirin Ec* (ASPIRIN EC*) 81 Mg Tablet.dr, 81 MG ORAL DAILY, TAB 02/13/18 Risperidone* (RISPERDAL*) 0.5 Mg Tablet, 1.5 MG ORAL BID, #30 TAB 0 Refills 02/13/18 Discontinued Reported Medications Insulin Aspart* (NOVOLOG*) 100 Unit/1 Ml Insuln.pen, SUBQ, #1 EA 0 Refills 02/13/18 Docusate Sodium* (DOCUSATE SODIUM*) 100 Mg Capsule, 100 MG ORAL DAILY, CAP 02/13/18 Acetaminophen* (ACETAMINOPHEN 325MG TABLET*) 325 Mg Tablet, 650 MG ORAL Q6H PRN for Mild Pain/Temp > 100.5, TAB 02/13/18 Med list reviewed/reconciled: Yes Allergies: Coded Allergies: No Known Allergies (Unverified , 02/13/18) Patient History History Provided By: Patient, Medical Record PMH Narrative Colon CA with Liver mets Seizures schizophrenia CKD DM HTN / CVA hypothyroidism anemia lt thumb fracture Past Surgical History: Right hand colectomy 22 years ago Review of Systems All Other Systems: negative except mentioned in HPI Physical Exam Vital Signs Date Time Temp Pulse Resp B/P (MAP) Pulse Ox O2 Delivery O2 Flow Rate FiO2 04/06/18 10:30 97.4 63 18 144/68 99 Sp02 EP Interpretation: reviewed, normal General Appearance: well appearing, no apparent distress, alert Head: normocephalic EENT: PERRL/EOMI, normal ENT inspection Neck: supple Respiratory: normal breath sounds, no respiratory distress Cardiovascular: normal rate Gastrointestinal: normal inspection, non tender, soft, normal bowel sounds, non -distended Rectal: deferred Genitourinary: deferred Musculoskeletal: normal inspection, back normal Neurologic: normal inspection, alert, oriented x3, responsive Psychiatric: normal inspection, judgement/insight normal, memory normal Skin: normal inspection, normal color, no rash, warm/dry, palpation normal, well hydrated Lymphatic: normal inspection, no adenopathy GI: Plan Problems: (1) Acute metabolic encephalopathy (2) Anemia (3) Liver mass (4) Cirrhosis (5) Dehydration (6) FTT (failure to thrive) in adult (7) Generalized weakness Plan EGD/colonoscopy to be scheduled pending consent. patient needs repeat abdominal US in Jun 2018 will follow with additional recommends Seen with Dr. Schofield. Thank you for this patient referral. The patient was seen and examined at bedside and all new and available data was reviewed in the patients chart. I agree with the above findings, impression and plan. (Patient seen earlier today. Signature stamp does not reflect patient encounter time.). - MD Pattie [facility]At[facility] Apr 07, 2018 15:14
== END 2018-04-06 11:06 | disposition home or self-care (01) ==
LOC: PAN 10:36
DX: K74.60 Unspecified cirrhosis of liver (principal); G93.41 Metabolic encephalopathy; D64.9 Anemia, unspecified; E86.0 Dehydration; R62.7 Adult failure to thrive; R53.1 Weakness; Z85.038 Personal history of other malignant neoplasm of large intestine; C78.7 Secondary malignant neoplasm of liver and intrahepatic bile duct; R56.9 Unspecified convulsions; F20.9 Schizophrenia, unspecified; I12.9 Hypertensive chronic kidney disease with stage 1 through stage 4 chronic kidney disease, or unspecified chronic kidney disease; N18.9 Chronic kidney disease, unspecified; Z86.73 Personal history of transient ischemic attack (TIA), and cerebral infarction without residual deficits; E03.9 Hypothyroidism, unspecified
CPT/HCPCS: 99203

== ENCOUNTER 2018-06-28 12:09 | Inpatient (IN) | payer MEDICARE, OTHER ==
[~2018-06-28] VITALS: Ht 182.9 cm; Wt 99.0 kg
[2018-06-28] MEDS ORDERED: levETIRAcetam 500 MG in D5W 110 ML IV ONE (12:15)
[2018-06-28] MEDS ORDERED: LISINOPRIL10 MG ORAL (12:17)
[2018-06-28] MEDS ORDERED: CRANBERRY400 MG PO (12:17)
[2018-06-28] MEDS ORDERED: MULTI-DAY PLUS1 EAC1 PO (12:18)
[2018-06-28 12:25] VITALS: BP 130/80
[2018-06-28] MEDS ORDERED: levETIRAcetam 500mg vial IV ONE (12:40)
[2018-06-28 13:01] LABS: ANION GAP 8 mmol/L (5-15); BLOOD UREA NITROGEN 56 mg/dL (7-18); CALCIUM 9.2 MG/DL (8.5-10.1); CARBON DIOXIDE 25 MMOL/L (21-32); CHLORIDE 108 MMOL/L (98-107); CREATININE 2.2 MG/DL (0.55-1.30); POTASSIUM 5.3 MMOL/L (3.5-5.1); SODIUM 141 MMOL/L (136-145)
[2018-06-28 13:15] LABS: ALANINE AMINOTRANSFERASE 27 U/L (12-78); ALBUMIN/GLOBULIN RATIO 0.8 (1.0-2.7); ALKALINE PHOSPHATASE 79 U/L (46-116); ASPARTATE AMINO TRANSFERASE 17 U/L (15-37); BILIRUBIN,TOTAL 0.3 MG/DL (0.2-1.0); CREATINE KINASE 163 U/L (26-308); PHOSPHORUS 4.4 MG/DL (2.5-4.9)
[2018-06-28 13:16] LABS: HEMATOCRIT 24.3 % (42.0-52.0); HEMOGLOBIN 8.1 G/DL (14.2-18.0); MEAN CORPUSCULAR VOLUME 92 FL (80-99); PLATELET COUNT 72 K/UL (150-450); RED BLOOD COUNT 2.64 M/UL (4.70-6.10); RED CELL DISTRIBUTION WIDTH 13.3 % (11.6-14.8); WHITE BLOOD COUNT 3.3 K/UL (4.8-10.8)
[2018-06-28 13:59] LABS: APPEARANCE,URINE SLIGHTLY CLOUDY; BILIRUBIN, URINE NEGATIVE (NEGATIVE); COLOR,URINE PALE YELLOW; GLUCOSE, URINE (UA) 1+ (NEGATIVE); KETONES,URINE NEGATIVE (NEGATIVE); LEUKOCYTE ESTERASE ,URINE NEGATIVE (NEGATIVE); NITRITE,URINE NEGATIVE (NEGATIVE); PH,URINE 5 (4.5-8.0); PROTEIN,URINE 3+ (NEGATIVE); UROBILINOGEN,URINE NORMAL MG/DL (0.0-1.0)
--- NOTE | 2018-06-28 14:03 | Diagnostic Imaging Report ---
Indications: Seizures Technique: Spiral acquisitions obtained through the brain. Angled axial and coronal 5 x 5 mm slices were reconstructed. Total dose length product 1390.16 mGycm. CTDI vol(s) 70.38 mGy. Dose reduction achieved using automated exposure control Comparison: 03/15/2018 Findings: Skin minnie are seen in the high left parietal scalp. No acute intracranial hemorrhage nor edema. No mass effect nor midline shift. There is age-related enlargement of the ventricles and extra axial CSF spaces. There is periventricular deep white matter low-attenuation, consistent with chronic ischemic change. Visualized sinuses are unremarkable. There is evidence of prior bilateral cataract surgery. The mastoids are clear. Patent cavum septum pellucidum. No significant interim change Impression: Negative for acute intracranial bleed or mass effect Chronic and age-related changes, as described Evidence of left parietal scalp soft tissue injury and repair The CT scanner at [facility] is accredited by the [employer] and the scans are performed using protocols designed to limit radiation exposure to as low as reasonably achievable to attain images of sufficient resolution adequate for diagnostic evaluation.
--- NOTE | 2018-06-28 14:19 | Diagnostic Imaging Report ---
Indication: Cough Technique: One view of the chest Comparison: 03/15/2018 Findings: Lungs and pleural spaces are clear. The heart is upper limits normal in size. Previously demonstrated right basilar atelectasis and pleural fluid are no longer evident. Cervical spine fusion hardware again noted Impression: No acute process
[2018-06-28 14:40] VITALS: BP 127/67
--- NOTE | 2018-06-28 15:51 | Emergency Room Report ---
History of Present Illness General Chief Complaint: Seizure Source: Patient Present Illness HPI Patient presents from a [facility] facility. The patient had 2 seizures prior to arrival. The patient has a history of seizure disorder and is on Keppra for this. The patient did get dosed an extra Keppra at the [facility] facility. The patient was sent here for further evaluation. The patient has no specific complaints. There is no other history of present illness available. Allergies: Coded Allergies: No Known Allergies (Unverified , 02/13/18) Patient History Past Medical History: see triage record, DM, HTN, seizures, other - Hyperthyroid, cirrhosis Social History: Denies: smoking, alcohol use, drug use Reviewed Nursing Documentation: PMH: Agreed; PSxH: Agreed Nursing Documentation-PMH Hx Cardiac Problems: Yes Hx Hypertension: Yes Hx Diabetes: Yes Hx Cancer: Yes - Colon Cancer Hx Gastrointestinal Problems: Yes - colon ca,liver cirrhosis Hx Cerebrovascular Accident: Yes Hx Dementia: Yes Hx Encephalitis: Yes - encephalopathy Hx Seizures: Yes Review of Systems All Other Systems: limited Physical Exam Vital Signs Date Time Temp Pulse Resp B/P (MAP) Pulse Ox O2 Delivery O2 Flow Rate FiO2 06/28/18 11:49 98.1 88 16 130/80 98 Room Air 06/28/18 12:25 94 Sp02 EP Interpretation: reviewed, normal General Appearance: no apparent distress, alert, GCS 15, non-toxic Head: normocephalic, atraumatic Eyes: bilateral eye normal inspection, bilateral eye PERRL ENT: hearing grossly normal, normal pharynx, no angioedema, normal voice Neck: full range of motion, supple/symm/no masses Respiratory: chest non-tender, lungs clear, normal breath sounds, no respiratory distress, no retraction, no accessory muscle use, speaking full sentences Cardiovascular #1: regular rate, rhythm, no edema Gastrointestinal: normal bowel sounds, non tender, soft, non-distended, no guarding, no rebound Rectal: deferred Genitourinary: normal inspection, no CVA tenderness Musculoskeletal: back normal, normal range of motion Neurologic: alert, responsive, motor strength/tone normal, sensory intact, speech normal Psychiatric: mood/affect normal, no suicidal/homicidal ideation Skin: warm/dry, well hydrated, other - See RN skin exam Medical Decision Making Diagnostic Impression: Primary Impression: Uncontrolled seizures ER Course This patient presents with breakthrough seizures. CT of the head shows no acute findings. The patient was given IV Keppra here in the emergency department. The patient has an anemia at baseline. The patient's hemoglobin and hematocrit is at baseline. The patient is admitted for further evaluation and treatment and to monitor for uncontrolled seizures. Laboratory Tests Test 06/28/18 12:40 06/28/18 12:47 06/28/18 13:00 06/28/18 13:14 Sodium Level 141 MMOL/L (136-145) Potassium Level 5.3 MMOL/L (3.5-5.1) H Chloride Level 108 MMOL/L (98-107) H Carbon Dioxide Level 25 MMOL/L (21-32) Anion Gap 8 mmol/L (5-15) Blood Urea Nitrogen 56 mg/dL (7-18) H Creatinine 2.2 MG/DL (0.55-1.30) H Estimate Glomerular Filtration Rate mL/min (>60) Glucose Level 111 MG/DL (74-106) H Lactic Acid Level 2.30 mmol/L (0.4-2.0) H Calcium Level 9.2 MG/DL (8.5-10.1) Phosphorus Level 4.4 MG/DL (2.5-4.9) Magnesium Level 1.7 MG/DL (1.8-2.4) L Total Bilirubin 0.3 MG/DL (0.2-1.0) Aspartate Amino Transferase (AST) 17 U/L (15-37) Alanine Aminotransferase (ALT) 27 U/L (12-78) Alkaline Phosphatase 79 U/L (46-116) Total Creatine Kinase 163 U/L (26-308) Creatine Kinase MB 4.0 NG/ML (0.0-3.6) H Creatine Kinase MB Relative Index 2.4 Troponin I 0.035 ng/mL (0.000-0.056) Total Protein 6.9 G/DL (6.4-8.2) Albumin 3.0 G/DL (3.4-5.0) L Globulin 3.9 g/dL Albumin/Globulin Ratio 0.8 (1.0-2.7) L Thyroid Stimulating Hormone (TSH) 4.255 uiU/mL (0.358-3.740) Free Thyroxine 0.84 NG/DL (0.76-1.46) Free Triiodothyronine 2.0 pg/mL (2.3-4.2) L Levetiracetam Level Pending Ammonia 14 umol/L (11-32) White Blood Count 3.3 K/UL (4.8-10.8) L Red Blood Count 2.64 M/UL (4.70-6.10) L Hemoglobin 8.1 G/DL (14.2-18.0) L Hematocrit 24.3 % (42.0-52.0) L Mean Corpuscular Volume 92 FL (80-99) Mean Corpuscular Hemoglobin 30.6 PG (27.0-31.0) Mean Corpuscular Hemoglobin Concent 33.3 G/DL (32.0-36.0) Red Cell Distribution Width 13.3 % (11.6-14.8) Platelet Count 72 K/UL (150-450) L Mean Platelet Volume 8.4 FL (6.5-10.1) Neutrophils (%) (Auto) % (45.0-75.0) Lymphocytes (%) (Auto) % (20.0-45.0) Monocytes (%) (Auto) % (1.0-10.0) Eosinophils (%) (Auto) % (0.0-3.0) Basophils (%) (Auto) % (0.0-2.0) Differential Total Cells Counted 100 Neutrophils % (Manual) 57 % (45-75) Lymphocytes % (Manual) 36 % (20-45) Monocytes % (Manual) 6 % (1-10) Eosinophils % (Manual) 1 % (0-3) Basophils % (Manual) 0 % (0-2) Band Neutrophils 0 % (0-8) Platelet Estimate Decreased L Platelet Morphology Normal Hypochromasia 2+ Urine Color Pale yellow Urine Appearance Slightly cloudy Urine pH 5 (4.5-8.0) Urine Specific [place] 1.020 (1.005-1.035) Urine Protein 3+ (NEGATIVE) H Urine Glucose (UA) 1+ (NEGATIVE) H Urine Ketones Negative (NEGATIVE) Urine Blood 1+ (NEGATIVE) H Urine Nitrite Negative (NEGATIVE) Urine Bilirubin Negative (NEGATIVE) Urine Urobilinogen Normal MG/DL (0.0-1.0) Urine Leukocyte Esterase Negative (NEGATIVE) Urine RBC 2-4 /HPF (0 - 0) H Urine WBC 0-2 /HPF (0 - 0) Urine Squamous Epithelial Cells Occasional /LPF Urine Bacteria Occasional /HPF (NONE) Urine Fine Granular Casts 0-2 /LPF (NONE) H Microbiology Date/Time Source Procedure Growth Status 06/28/18 13:14 Nasal Nares Influenza Types A,B Antigen (KRYSTINA) - Final Complete EKG Diagnostic Results Rate: normal Rhythm: NSR ST Segments: no acute changes Rhythm Strip Diag. Results EP Interpretation: yes Rate: 70's Rhythm: NSR, no PVC's, no ectopy Chest X-Ray Diagnostic Results Chest X-Ray Diagnostic Results : Chest X-Ray Ordered: Yes # of Views/Limited/Complete: 1 View Indication: Other Interpretation: no consolidation, no effusion, no pneumothorax, no acute cardiopulmonary disease Impression: No acute disease Electronically Signed by: Matilde Pink DO CT/MRI/US Diagnostic Results CT/MRI/US Diagnostic Results : Imaging Test Ordered: CT head Impression No acute findings. Specifically no intracranial bleed, mass effect or edema. See official report. Last Vital Signs Date Time Temp Pulse Resp B/P (MAP) Pulse Ox O2 Delivery O2 Flow Rate FiO2 06/28/18 12:25 98.1 69 17 130/80 98 Room Air 94 Disposition: ADMITTED INPATIENT Condition: Stable Referrals: Stella Gandara MD (PCP) Matilde Pink DO Jun 28, 2018 15:51
[2018-06-28 16:30] VITALS: BP 148/84
[2018-06-28 16:40] VITALS: BP 131/75
[2018-06-28 20:00] VITALS: BP 156/82
[2018-06-28] MEDS: Levemir Flexpen SUBQ SCH (21:00)
[2018-06-28] MEDS ORDERED: Heparin 5000 units/ml inj SUBQ SCH (21:00)
[2018-06-28] MEDS: NovoLOG Insulin Flexpen SUBQ SCH (21:00)
[2018-06-28] MEDS: Atorvastatin 80mg tab ORAL SCH (21:21)
[2018-06-29 04:00] VITALS: BP 137/75
[2018-06-29] MEDS: Levothyroxine 25mcg tab ORAL SCH (06:31)
[2018-06-29] MEDS: NovoLOG Insulin Flexpen SUBQ SCH ×4 (06:32→22:05)
[2018-06-29] MEDS: Levemir Flexpen SUBQ SCH ×2 (06:34→22:05)
[2018-06-29 08:00] VITALS: BP 154/84
[2018-06-29 08:32] LABS: MEAN CORPUSCULAR VOLUME 93 FL (80-99); PLATELET COUNT 76 K/UL (150-450); RED CELL DISTRIBUTION WIDTH 13.5 % (11.6-14.8); WHITE BLOOD COUNT 3.1 K/UL (4.8-10.8)
[2018-06-29] MEDS: Multivitamin w/Minerals tab ORAL SCH (08:43)
[2018-06-29] MEDS: Aspirin EC 81mg tab ORAL SCH (08:43)
[2018-06-29] MEDS ORDERED: Milk of Magnesia 30ml Ud ORAL PRN (09:15)
[2018-06-29 09:28] LABS: ANION GAP 9 mmol/L (5-15); BLOOD UREA NITROGEN 51 mg/dL (7-18); CALCIUM 9.1 MG/DL (8.5-10.1); CARBON DIOXIDE 24 MMOL/L (21-32); CHLORIDE 109 MMOL/L (98-107); CREATININE 2.1 MG/DL (0.55-1.30); POTASSIUM 4.9 MMOL/L (3.5-5.1); SODIUM 142 MMOL/L (136-145)
[2018-06-29] MEDS ORDERED: LORazepam Inj 2mg/ml 1ml IV PRN ×2 (09:45→13:45)
[2018-06-29 10:38] LABS: HEMATOCRIT 22.6 % (42.0-52.0); HEMOGLOBIN 7.7 G/DL (14.2-18.0); MEAN CORPUSCULAR VOLUME 91 FL (80-99); PLATELET COUNT 73 K/UL (150-450); RED BLOOD COUNT 2.47 M/UL (4.70-6.10); RED CELL DISTRIBUTION WIDTH 13.7 % (11.6-14.8); WHITE BLOOD COUNT 3.1 K/UL (4.8-10.8)
[2018-06-29 10:52] LABS: CREATINE KINASE 112 U/L (26-308)
[2018-06-29] MEDS ORDERED: OLANZapine 2.5mg tab ORAL PRN (11:00)
--- NOTE | 2018-06-29 11:24 | Consultation ---
History of Present Illness General Date patient seen: Jun 29, 2018 Chief Complaint: Seizure Present Illness Allergies: Coded Allergies: No Known Allergies (Unverified , 02/13/18) Medication History Scheduled Aspirin Ec* (Aspirin Ec*), 81 MG ORAL DAILY, (Reported) Atorvastatin Calcium* (Atorvastatin Calcium*), 40 MG ORAL BEDTIME, (Reported) Glipizide* (Glucotrol*), 10 MG ORAL ACBREAKFAST, (Reported) Insulin Glargine (Lantus), 30 UNITS SUBQ BEFORE BREAKFAST, (Reported) Insulin Glargine (Lantus), 10 UNITS SUBQ BEDTIME, (Reported) Levetiracetam (Keppra), 1,500 MG ORAL BID, (Reported) Levothyroxine Sodium* (Synthroid*), 25 MCG ORAL DAILY, (Reported) Lisinopril* (Lisinopril*), 10 MG ORAL DAILY, (Reported) Quetiapine Fumarate* (Seroquel*), 25 MG ORAL Q12HR Risperidone* (Risperdal*), 1.5 MG ORAL BID, (Reported) Sitagliptin (Januvia), 100 MG ORAL DAILY, (Reported) [Lispro 100 Units/Ml], 3 UNITS SUBQ TID, (Reported) Miscellaneous Medications Cranberry (Cranberry), 450 MG PO, (Reported) Multivitamin-Min/Iron/FA/Vit K (Multi-Day Plus Minerals Tablet), 1 EACH PO, ( Reported) Patient History Healthcare decision maker Resuscitation status Advanced Directive on File Physical Exam Last 24 Hour Vital Signs Date Time Temp Pulse Resp B/P (MAP) Pulse Ox O2 Delivery O2 Flow Rate FiO2 06/29/18 09:00 Room Air 06/29/18 04:00 98.3 84 20 137/75 (95) 98 06/29/18 04:00 72 06/29/18 00:00 76 06/28/18 21:00 Room Air 06/28/18 20:00 98.0 76 20 156/82 (106) 99 06/28/18 20:00 83 06/28/18 16:40 98.0 82 17 131/75 98 Room Air 06/28/18 16:40 98.0 78 18 131/78 99 Room Air 06/28/18 16:35 Room Air 1/28/19 16:30 96.8 75 20 148/84 (105) 99 06/28/18 14:40 98.0 74 17 127/67 98 Room Air 06/28/18 12:25 98.1 69 17 130/80 98 Room Air 94 06/28/18 12:25 69 17 Room Air 94 06/28/18 11:49 98.1 88 16 130/80 98 Room Air Intake and Output 06/28/18 06/29/18 19:00 07:00 Intake Total 0 ml Balance 0 ml Intake Oral 0 ml # Voids 2 3 # Bowel Movements 4 Laboratory Tests Test 06/28/18 12:40 06/28/18 12:47 06/28/18 13:00 06/28/18 13:14 Sodium Level 141 MMOL/L (136-145) Potassium Level 5.3 MMOL/L (3.5-5.1) H Chloride Level 108 MMOL/L (98-107) H Carbon Dioxide Level 25 MMOL/L (21-32) Anion Gap 8 mmol/L (5-15) Blood Urea Nitrogen 56 mg/dL (7-18) H Creatinine 2.2 MG/DL (0.55-1.30) H Estimat Glomerular Filtration Rate mL/min (>60) Glucose Level 111 MG/DL (74-106) H Lactic Acid Level 2.30 mmol/L (0.4-2.0) H Calcium Level 9.2 MG/DL (8.5-10.1) Phosphorus Level 4.4 MG/DL (2.5-4.9) Magnesium Level 1.7 MG/DL (1.8-2.4) L Total Bilirubin 0.3 MG/DL (0.2-1.0) Aspartate Amino Transf (AST/SGOT) 17 U/L (15-37) Alanine Aminotransferase (ALT/SGPT) 27 U/L (12-78) Alkaline Phosphatase 79 U/L (46-116) Total Creatine Kinase 163 U/L (26-308) Creatine Kinase MB 4.0 NG/ML (0.0-3.6) H Creatine Kinase MB Relative Index 2.4 Troponin I 0.035 ng/mL (0.000-0.056) Total Protein 6.9 G/DL (6.4-8.2) Albumin 3.0 G/DL (3.4-5.0) L Globulin 3.9 g/dL Albumin/Globulin Ratio 0.8 (1.0-2.7) L Thyroid Stimulating Hormone (TSH) 4.255 uiU/mL (0.358-3.740) Free Thyroxine 0.84 NG/DL (0.76-1.46) Free Triiodothyronine 2.0 pg/mL (2.3-4.2) L Levetiracetam (Keppra) Level Pending Ammonia 14 umol/L (11-32) White Blood Count 3.3 K/UL (4.8-10.8) L Red Blood Count 2.64 M/UL (4.70-6.10) L Hemoglobin 8.1 G/DL (14.2-18.0) L Hematocrit 24.3 % (42.0-52.0) L Mean Corpuscular Volume 92 FL (80-99) Mean Corpuscular Hemoglobin 30.6 PG (27.0-31.0) Mean Corpuscular Hemoglobin Concent 33.3 G/DL (32.0-36.0) Red Cell Distribution Width 13.3 % (11.6-14.8) Platelet Count 72 K/UL (150-450) L Mean Platelet Volume 8.4 FL (6.5-10.1) Neutrophils (%) (Auto) % (45.0-75.0) Lymphocytes (%) (Auto) % (20.0-45.0) Monocytes (%) (Auto) % (1.0-10.0) Eosinophils (%) (Auto) % (0.0-3.0) Basophils (%) (Auto) % (0.0-2.0) Differential Total Cells Counted 100 Neutrophils % (Manual) 57 % (45-75) Lymphocytes % (Manual) 36 % (20-45) Monocytes % (Manual) 6 % (1-10) Eosinophils % (Manual) 1 % (0-3) Basophils % (Manual) 0 % (0-2) Band Neutrophils 0 % (0-8) Platelet Estimate Decreased L Platelet Morphology Normal Hypochromasia 2+ Urine Color Pale yellow Urine Appearance Slightly cloudy Urine pH 5 (4.5-8.0) Urine Specific [place] 1.020 (1.005-1.035) Urine Protein 3+ (NEGATIVE) H Urine Glucose (UA) 1+ (NEGATIVE) H Urine Ketones Negative (NEGATIVE) Urine Blood 1+ (NEGATIVE) H Urine Nitrite Negative (NEGATIVE) Urine Bilirubin Negative (NEGATIVE) Urine Urobilinogen Normal MG/DL (0.0-1.0) Urine Leukocyte Esterase Negative (NEGATIVE) Urine RBC 2-4 /HPF (0 - 0) H Urine WBC 0-2 /HPF (0 - 0) Urine Squamous Epithelial Cells Occasional /LPF Urine Bacteria Occasional /HPF (NONE) Urine Fine Granular Casts 0-2 /LPF (NONE) H Test 06/29/18 06:56 06/29/18 09:45 White Blood Count 3.1 K/UL (4.8-10.8) L 3.1 K/UL (4.8-10.8) L Red Blood Count 2.60 M/UL (4.70-6.10) L 2.47 M/UL (4.70-6.10) L Hemoglobin 8.0 G/DL (14.2-18.0) L 7.7 G/DL (14.2-18.0) L Hematocrit 24.0 % (42.0-52.0) L 22.6 % (42.0-52.0) L Mean Corpuscular Volume 93 FL (80-99) 91 FL (80-99) Mean Corpuscular Hemoglobin 30.8 PG (27.0-31.0) 31.4 PG (27.0-31.0) H Mean Corpuscular Hemoglobin Concent 33.2 G/DL (32.0-36.0) 34.3 G/DL (32.0-36.0) Red Cell Distribution Width 13.5 % (11.6-14.8) 13.7 % (11.6-14.8) Platelet Count 76 K/UL (150-450) L 73 K/UL (150-450) L Mean Platelet Volume 8.0 FL (6.5-10.1) 7.9 FL (6.5-10.1) Neutrophils (%) (Auto) % (45.0-75.0) % (45.0-75.0) Lymphocytes (%) (Auto) % (20.0-45.0) % (20.0-45.0) Monocytes (%) (Auto) % (1.0-10.0) % (1.0-10.0) Eosinophils (%) (Auto) % (0.0-3.0) % (0.0-3.0) Basophils (%) (Auto) % (0.0-2.0) % (0.0-2.0) Differential Total Cells Counted 100 100 Neutrophils % (Manual) 64 % (45-75) 70 % (45-75) Lymphocytes % (Manual) 28 % (20-45) 20 % (20-45) Monocytes % (Manual) 4 % (1-10) 3 % (1-10) Eosinophils % (Manual) 2 % (0-3) 3 % (0-3) Basophils % (Manual) 1 % (0-2) 0 % (0-2) Band Neutrophils 1 % (0-8) 4 % (0-8) Platelet Estimate Decreased L Decreased L Platelet Morphology Normal Normal Red Blood Cell Morphology Normal Normal Sodium Level 142 MMOL/L (136-145) Pending Potassium Level 4.9 MMOL/L (3.5-5.1) Pending Chloride Level 109 MMOL/L (98-107) H Pending Carbon Dioxide Level 24 MMOL/L (21-32) Pending Anion Gap 9 mmol/L (5-15) Blood Urea Nitrogen 51 mg/dL (7-18) H Pending Creatinine 2.1 MG/DL (0.55-1.30) H Pending Estimat Glomerular Filtration Rate mL/min (>60) Pending Glucose Level 209 MG/DL (74-106) H Pending Calcium Level 9.1 MG/DL (8.5-10.1) Pending Total Bilirubin Pending Aspartate Amino Transf (AST/SGOT) Pending Alanine Aminotransferase (ALT/SGPT) Pending Alkaline Phosphatase Pending Total Creatine Kinase 112 U/L (26-308) Troponin I Pending Total Protein Pending Albumin Pending Globulin Pending Microbiology Date/Time Source Procedure Growth Status 06/28/18 13:14 Nasal Nares Influenza Types A,B Antigen (KRYSTINA) - Final Complete Height (Feet): 6 Height (Inches): 0.00 Weight (Pounds): 180 Medications Current Medications Medications (Trade) Dose Ordered Sig/Yoandy Route PRN Reason Start Time Stop Time Status Last Admin Dose Admin Aspirin (Ecotrin) 81 mg DAILY ORAL 06/29/18 09:00 07/29/18 08:59 06/29/18 08:43 Atorvastatin Calcium (Lipitor) 40 mg BEDTIME ORAL 06/28/18 21:00 07/28/18 20:59 06/28/18 21:21 Bisacodyl (Dulcolax) 10 mg DAILYPRN PRN RECTAL Constipation 06/29/18 09:15 07/29/18 09:14 Dextrose (Dextrose 50%) 25 ml Q30M PRN IV Hypoglycemia 06/28/18 19:00 07/28/18 18:59 Dextrose (Dextrose 50%) 50 ml Q30M PRN IV Hypoglycemia 06/28/18 19:00 07/28/18 18:59 Docusate Sodium (Colace) 100 mg EVERY 12 HOURS ORAL 06/29/18 21:00 07/29/18 20:59 Insulin Aspart (NovoLOG) BEFORE MEALS AND HS SUBQ 06/28/18 21:00 07/28/18 20:59 06/29/18 06:32 Insulin Detemir (Levemir) 10 units BEDTIME SUBQ 06/28/18 21:00 07/28/18 20:59 Insulin Detemir (Levemir) 15 units BEFORE BREAKFAST SUBQ 06/29/18 06:30 07/29/18 06:29 06/29/18 06:34 Levetiracetam (Keppra) 1,500 mg Q12HR ORAL 06/28/18 21:00 07/28/18 20:59 06/29/18 08:56 Levothyroxine Sodium (Synthroid) 25 mcg ACBREAKFAST ORAL 06/29/18 06:30 07/29/18 06:29 06/29/18 06:31 Lorazepam (Ativan 2mg/ml 1ml) 1 mg Q4H PRN IV For Seizures 06/29/18 09:45 07/06/18 09:44 Magnesium Hydroxide (Mom) 30 ml HSPRN PRN ORAL Constipation 06/29/18 09:15 07/29/18 09:14 Multivitamins Therapeutic (Therapeutic Multivitamin) 1 ea DAILY ORAL 06/29/18 09:00 07/29/18 08:59 06/29/18 08:43 Olanzapine (ZyPREXA) 7.5 mg Q6H PRN ORAL Agitation 06/29/18 11:00 2/28/19 10:59 Ondansetron HCl (Zofran) 4 mg Q6H PRN IVP Nausea & Vomiting 06/29/18 09:15 07/29/18 09:14 Quetiapine Fumarate (SEROquel) 25 mg Q12HR ORAL 06/28/18 21:00 07/28/18 20:59 06/29/18 08:56 Risperidone (RisperDAL) 1.5 mg BID ORAL 06/29/18 09:00 07/29/18 08:59 06/29/18 08:59 Sodium Chloride 1,000 ml @ 75 mls/hr [id number] IV 06/29/18 11:00 07/29/18 10:59 Assessment/Plan Assessment/Plan Hematology Consultation REBatsheva REBOLLAR: Juliocesar RFC: Pancytopenia eval DOS: 06/29/18 Chief Complaint: Seizure Source: Patient HPI Patient presents from a retirement facility. The patient had 2 seizures prior to arrival. The patient has a history of seizure disorder and is on Keppra for this. The patient did get dosed an extra Keppra at the retirement facility. The patient was sent here for further evaluation. The patient has no specific complaints. There is no other history of present illness available. I have seen her on prior admission and at this time, she is being readmitted. Allergies: No Known Allergies (Unverified , 02/13/18) Past Medical History: see triage record, DM, HTN, seizures, other - Hyperthyroid, cirrhosis Social History: Denies: smoking, alcohol use, drug use Reviewed Nursing Documentation: PMH: Agreed; PSxH: Agreed Hx Cardiac Problems: Yes Hx Hypertension: Yes Hx Diabetes: Yes Hx Cancer: Yes - Colon Cancer Hx Gastrointestinal Problems: Yes - colon ca,liver cirrhosis Hx Cerebrovascular Accident: Yes Hx Dementia: Yes Hx Encephalitis: Yes - encephalopathy Hx Seizures: Yes Review of Systems: limited Physical Exam Vital Signs Date Time Temp Pulse Resp B/P (MAP) Pulse Ox O2 Delivery O2 Flow Rate FiO2 06/28/18 11:49 98.1 88 16 130/80 98 Room Air 06/28/18 12:25 94 Sp02 EP Interpretation: reviewed, normal General Appearance: no apparent distress, alert Head: normocephalic, atraumatic Eyes: bilateral eye normal inspection ENT: hearing grossly normal, normal pharynx Neck: full range of motion Respiratory: chest non-tender, lungs clear Cardiovascular: regular rate, rhythm Gastrointestinal: normal bowel sounds Genitourinary: normal inspection, no CVA tenderness Musculoskeletal: back normal, normal range of motion Neurologic: alert, responsive, motor strength/tone normal Psychiatric: mood/affect normal Skin: warm/dry, well hydrated Laboratory Tests Test 06/28/18 12:40 06/28/18 12:47 06/28/18 13:00 06/28/18 13:14 Sodium Level 141 MMOL/L (136-145) Potassium Level 5.3 MMOL/L (3.5-5.1) H Chloride Level 108 MMOL/L (98-107) H Carbon Dioxide Level 25 MMOL/L (21-32) Anion Gap 8 mmol/L (5-15) Blood Urea Nitrogen 56 mg/dL (7-18) H Creatinine 2.2 MG/DL (0.55-1.30) H Estimate Glomerular Filtration Rate mL/min (>60) Glucose Level 111 MG/DL (74-106) H Lactic Acid Level 2.30 mmol/L (0.4-2.0) H Calcium Level 9.2 MG/DL (8.5-10.1) Phosphorus Level 4.4 MG/DL (2.5-4.9) Magnesium Level 1.7 MG/DL (1.8-2.4) L Total Bilirubin 0.3 MG/DL (0.2-1.0) Aspartate Amino Transferase (AST) 17 U/L (15-37) Alanine Aminotransferase (ALT) 27 U/L (12-78) Alkaline Phosphatase 79 U/L (46-116) Total Creatine Kinase 163 U/L (26-308) Creatine Kinase MB 4.0 NG/ML (0.0-3.6) H Creatine Kinase MB Relative Index 2.4 Troponin I 0.035 ng/mL (0.000-0.056) Total Protein 6.9 G/DL (6.4-8.2) Albumin 3.0 G/DL (3.4-5.0) L Globulin 3.9 g/dL Albumin/Globulin Ratio 0.8 (1.0-2.7) L Thyroid Stimulating Hormone (TSH) 4.255 uiU/mL (0.358-3.740) Free Thyroxine 0.84 NG/DL (0.76-1.46) Free Triiodothyronine 2.0 pg/mL (2.3-4.2) L Levetiracetam Level Pending Ammonia 14 umol/L (11-32) White Blood Count 3.3 K/UL (4.8-10.8) L Red Blood Count 2.64 M/UL (4.70-6.10) L Hemoglobin 8.1 G/DL (14.2-18.0) L Hematocrit 24.3 % (42.0-52.0) L Mean Corpuscular Volume 92 FL (80-99) Mean Corpuscular Hemoglobin 30.6 PG (27.0-31.0) Mean Corpuscular Hemoglobin Concent 33.3 G/DL (32.0-36.0) Red Cell Distribution Width 13.3 % (11.6-14.8) Platelet Count 72 K/UL (150-450) L Mean Platelet Volume 8.4 FL (6.5-10.1) Neutrophils (%) (Auto) % (45.0-75.0) Lymphocytes (%) (Auto) % (20.0-45.0) Monocytes (%) (Auto) % (1.0-10.0) Eosinophils (%) (Auto) % (0.0-3.0) Basophils (%) (Auto) % (0.0-2.0) Differential Total Cells Counted 100 Neutrophils % (Manual) 57 % (45-75) Lymphocytes % (Manual) 36 % (20-45) Monocytes % (Manual) 6 % (1-10) Eosinophils % (Manual) 1 % (0-3) Basophils % (Manual) 0 % (0-2) Band Neutrophils 0 % (0-8) Platelet Estimate Decreased L Platelet Morphology Normal Hypochromasia 2+ Urine Color Pale yellow Urine Appearance Slightly cloudy Urine pH 5 (4.5-8.0) Urine Specific [place] 1.020 (1.005-1.035) Urine Protein 3+ (NEGATIVE) H Urine Glucose (UA) 1+ (NEGATIVE) H Urine Ketones Negative (NEGATIVE) Urine Blood 1+ (NEGATIVE) H Urine Nitrite Negative (NEGATIVE) Urine Bilirubin Negative (NEGATIVE) Urine Urobilinogen Normal MG/DL (0.0-1.0) Urine Leukocyte Esterase Negative (NEGATIVE) Urine RBC 2-4 /HPF (0 - 0) H Urine WBC 0-2 /HPF (0 - 0) Urine Squamous Epithelial Cells Occasional /LPF Urine Bacteria Occasional /HPF (NONE) Urine Fine Granular Casts 0-2 /LPF (NONE) H Microbiology Date/Time Source Procedure Growth Status 06/28/18 13:14 Nasal Nares Influenza Types A,B Antigen (KRYSTINA) - Final Complete EKG Diagnostic Results Assessment/Recs: # Pancytopenia - cirrhosis++ and large spleen ++ in addition has evidence of cirrhosis on the us of the abdomen --> Hiv and hepatitis panel on prior admission was negative --> us of the abdomen shows spenomegaly that is enlarged spleen (REPEAT ON THIS ADMISSION) --> anemia panel ordered as well, ferritin, tibc, folic acid, tsh, occult blood- -> consistent with anemia of chronic disease --> peripheral smear reviewed and shows no significant abnml --> r/o infectious etiology, cultures have been negative thus far --> Neupogen if ANC <1000 # Anemia of chronic disease - consistent with above diagnosis --> anemia panel reviewed --> panel has been reviewed --> hgb goal >7 # 14 x 4 mm nodule hypoechoic structure at the tip of the right hepatic lobe --> outpatient CT scan with contrast of the abdomen can be completed # Acute encephalopathy superimposed on chronic dementia, also exacerbated by sedative medications given for agitation. Unclear etiology, could be related to mild AGUILAR present on admission or occult infection. --> avoid benzos, frequent orienting, fall, aspiration precautions. --> Correct underlying AGUILAR. --> Psychiatry consulted. appreciate recs # Mild AGUILAR, cr in the past elevated as well --> Avoid nephrotic meds, given ivf # History of epilepsy, will give Keppra intravenously as he is unable to take PO meds due to lethargy --> continue as per neuro/pcp # Type 2 DM, controlled, hold oral diabetic meds while oral intake is minimal, will give reduced dose Lantus # Hypothyroidism, continue levothyroxine - can give intravenously if he remains lethargic. # Azotemia has been reviewed # DVT ppx is ok with heparin if plt >50k GREATLY APPRECIATE CONSULTATION! Watson Adams MD Jun 29, 2018 11:24
[2018-06-29 12:00] VITALS: BP 142/74
--- NOTE | 2018-06-29 12:15 | Consultation ---
History of Present Illness General Chief Complaint: Seizure Present Illness HPI the pt with hx of mmp, hx of psychosis was admitted for seizure. Patient presents from a long-term facility. the pt is confused has waxing and waning of consciousness. The pt has been agitated all day. the pt has been coming out of bed. the pt is on two antipsychotics outside of the hospital. the pt was unable to answer any questions. Allergies: Coded Allergies: No Known Allergies (Unverified , 02/13/18) Medication History Scheduled Aspirin Ec* (Aspirin Ec*), 81 MG ORAL DAILY, (Reported) Atorvastatin Calcium* (Atorvastatin Calcium*), 40 MG ORAL BEDTIME, (Reported) Glipizide* (Glucotrol*), 10 MG ORAL ACBREAKFAST, (Reported) Insulin Glargine (Lantus), 30 UNITS SUBQ BEFORE BREAKFAST, (Reported) Insulin Glargine (Lantus), 10 UNITS SUBQ BEDTIME, (Reported) Levetiracetam (Keppra), 1,500 MG ORAL BID, (Reported) Levothyroxine Sodium* (Synthroid*), 25 MCG ORAL DAILY, (Reported) Lisinopril* (Lisinopril*), 10 MG ORAL DAILY, (Reported) Quetiapine Fumarate* (Seroquel*), 25 MG ORAL Q12HR Risperidone* (Risperdal*), 1.5 MG ORAL BID, (Reported) Sitagliptin (Januvia), 100 MG ORAL DAILY, (Reported) [Lispro 100 Units/Ml], 3 UNITS SUBQ TID, (Reported) Miscellaneous Medications Cranberry (Cranberry), 450 MG PO, (Reported) Multivitamin-Min/Iron/FA/Vit K (Multi-Day Plus Minerals Tablet), 1 EACH PO, ( Reported) Patient History Limited by: medical condition History Provided By: Medical Record, PMD Healthcare decision maker Resuscitation status Advanced Directive on File Past Medical/Surgical History Past Medical/Surgical History: (1) Hand injury (2) Hyperkalemia (3) Pancytopenia (4) Schizophrenia (5) Dehydration (6) Generalized weakness (7) Cirrhosis (8) Liver mass (9) FTT (failure to thrive) in adult (10) Uncontrolled seizures (11) Uncontrolled seizures (12) Unable to obtan due to encephalopathy (13) Anemia (14) Agitation (15) Acute metabolic encephalopathy (16) AGUILAR (acute kidney injury) Review of Systems Psychiatric: Reports: prior hx, anxiety, depressed feelings, emotional problems Physical Exam General Appearance: lethargic, confused, agitated Neurologic: disoriented Last 24 Hour Vital Signs Date Time Temp Pulse Resp B/P (MAP) Pulse Ox O2 Delivery O2 Flow Rate FiO2 06/29/18 09:00 Room Air 06/29/18 04:00 98.3 84 20 137/75 (95) 98 06/29/18 04:00 72 06/29/18 00:00 76 06/28/18 21:00 Room Air 06/28/18 20:00 98.0 76 20 156/82 (106) 99 06/28/18 20:00 83 06/28/18 16:40 98.0 82 17 131/75 98 Room Air 06/28/18 16:40 98.0 78 18 131/78 99 Room Air 06/28/18 16:35 Room Air 06/28/18 16:30 96.8 75 20 148/84 (105) 99 06/28/18 14:40 98.0 74 17 127/67 98 Room Air 06/28/18 12:25 98.1 69 17 130/80 98 Room Air 94 06/28/18 12:25 69 17 Room Air 94 Intake and Output 06/28/18 06/29/18 19:00 07:00 Intake Total 0 ml Balance 0 ml Intake Oral 0 ml # Voids 2 3 # Bowel Movements 4 Laboratory Tests Test 06/28/18 12:40 06/28/18 12:47 06/28/18 13:00 06/28/18 13:14 Sodium Level 141 MMOL/L (136-145) Potassium Level 5.3 MMOL/L (3.5-5.1) H Chloride Level 108 MMOL/L (98-107) H Carbon Dioxide Level 25 MMOL/L (21-32) Anion Gap 8 mmol/L (5-15) Blood Urea Nitrogen 56 mg/dL (7-18) H Creatinine 2.2 MG/DL (0.55-1.30) H Estimat Glomerular Filtration Rate mL/min (>60) Glucose Level 111 MG/DL (74-106) H Lactic Acid Level 2.30 mmol/L (0.4-2.0) H Calcium Level 9.2 MG/DL (8.5-10.1) Phosphorus Level 4.4 MG/DL (2.5-4.9) Magnesium Level 1.7 MG/DL (1.8-2.4) L Total Bilirubin 0.3 MG/DL (0.2-1.0) Aspartate Amino Transf (AST/SGOT) 17 U/L (15-37) Alanine Aminotransferase (ALT/SGPT) 27 U/L (12-78) Alkaline Phosphatase 79 U/L (46-116) Total Creatine Kinase 163 U/L (26-308) Creatine Kinase MB 4.0 NG/ML (0.0-3.6) H Creatine Kinase MB Relative Index 2.4 Troponin I 0.035 ng/mL (0.000-0.056) Total Protein 6.9 G/DL (6.4-8.2) Albumin 3.0 G/DL (3.4-5.0) L Globulin 3.9 g/dL Albumin/Globulin Ratio 0.8 (1.0-2.7) L Thyroid Stimulating Hormone (TSH) 4.255 uiU/mL (0.358-3.740) Free Thyroxine 0.84 NG/DL (0.76-1.46) Free Triiodothyronine 2.0 pg/mL (2.3-4.2) L Levetiracetam (Keppra) Level Pending Ammonia 14 umol/L (11-32) White Blood Count 3.3 K/UL (4.8-10.8) L Red Blood Count 2.64 M/UL (4.70-6.10) L Hemoglobin 8.1 G/DL (14.2-18.0) L Hematocrit 24.3 % (42.0-52.0) L Mean Corpuscular Volume 92 FL (80-99) Mean Corpuscular Hemoglobin 30.6 PG (27.0-31.0) Mean Corpuscular Hemoglobin Concent 33.3 G/DL (32.0-36.0) Red Cell Distribution Width 13.3 % (11.6-14.8) Platelet Count 72 K/UL (150-450) L Mean Platelet Volume 8.4 FL (6.5-10.1) Neutrophils (%) (Auto) % (45.0-75.0) Lymphocytes (%) (Auto) % (20.0-45.0) Monocytes (%) (Auto) % (1.0-10.0) Eosinophils (%) (Auto) % (0.0-3.0) Basophils (%) (Auto) % (0.0-2.0) Differential Total Cells Counted 100 Neutrophils % (Manual) 57 % (45-75) Lymphocytes % (Manual) 36 % (20-45) Monocytes % (Manual) 6 % (1-10) Eosinophils % (Manual) 1 % (0-3) Basophils % (Manual) 0 % (0-2) Band Neutrophils 0 % (0-8) Platelet Estimate Decreased L Platelet Morphology Normal Hypochromasia 2+ Urine Color Pale yellow Urine Appearance Slightly cloudy Urine pH 5 (4.5-8.0) Urine Specific [place] 1.020 (1.005-1.035) Urine Protein 3+ (NEGATIVE) H Urine Glucose (UA) 1+ (NEGATIVE) H Urine Ketones Negative (NEGATIVE) Urine Blood 1+ (NEGATIVE) H Urine Nitrite Negative (NEGATIVE) Urine Bilirubin Negative (NEGATIVE) Urine Urobilinogen Normal MG/DL (0.0-1.0) Urine Leukocyte Esterase Negative (NEGATIVE) Urine RBC 2-4 /HPF (0 - 0) H Urine WBC 0-2 /HPF (0 - 0) Urine Squamous Epithelial Cells Occasional /LPF Urine Bacteria Occasional /HPF (NONE) Urine Fine Granular Casts 0-2 /LPF (NONE) H Test 06/29/18 06:56 06/29/18 09:45 White Blood Count 3.1 K/UL (4.8-10.8) L 3.1 K/UL (4.8-10.8) L Red Blood Count 2.60 M/UL (4.70-6.10) L 2.47 M/UL (4.70-6.10) L Hemoglobin 8.0 G/DL (14.2-18.0) L 7.7 G/DL (14.2-18.0) L Hematocrit 24.0 % (42.0-52.0) L 22.6 % (42.0-52.0) L Mean Corpuscular Volume 93 FL (80-99) 91 FL (80-99) Mean Corpuscular Hemoglobin 30.8 PG (27.0-31.0) 31.4 PG (27.0-31.0) H Mean Corpuscular Hemoglobin Concent 33.2 G/DL (32.0-36.0) 34.3 G/DL (32.0-36.0) Red Cell Distribution Width 13.5 % (11.6-14.8) 13.7 % (11.6-14.8) Platelet Count 76 K/UL (150-450) L 73 K/UL (150-450) L Mean Platelet Volume 8.0 FL (6.5-10.1) 7.9 FL (6.5-10.1) Neutrophils (%) (Auto) % (45.0-75.0) % (45.0-75.0) Lymphocytes (%) (Auto) % (20.0-45.0) % (20.0-45.0) Monocytes (%) (Auto) % (1.0-10.0) % (1.0-10.0) Eosinophils (%) (Auto) % (0.0-3.0) % (0.0-3.0) Basophils (%) (Auto) % (0.0-2.0) % (0.0-2.0) Differential Total Cells Counted 100 100 Neutrophils % (Manual) 64 % (45-75) 70 % (45-75) Lymphocytes % (Manual) 28 % (20-45) 20 % (20-45) Monocytes % (Manual) 4 % (1-10) 3 % (1-10) Eosinophils % (Manual) 2 % (0-3) 3 % (0-3) Basophils % (Manual) 1 % (0-2) 0 % (0-2) Band Neutrophils 1 % (0-8) 4 % (0-8) Platelet Estimate Decreased L Decreased L Platelet Morphology Normal Normal Red Blood Cell Morphology Normal Normal Sodium Level 142 MMOL/L (136-145) Pending Potassium Level 4.9 MMOL/L (3.5-5.1) Pending Chloride Level 109 MMOL/L (98-107) H Pending Carbon Dioxide Level 24 MMOL/L (21-32) Pending Anion Gap 9 mmol/L (5-15) Blood Urea Nitrogen 51 mg/dL (7-18) H Pending Creatinine 2.1 MG/DL (0.55-1.30) H Pending Estimat Glomerular Filtration Rate mL/min (>60) Pending Glucose Level 209 MG/DL (74-106) H Pending Calcium Level 9.1 MG/DL (8.5-10.1) Pending Total Bilirubin Pending Aspartate Amino Transf (AST/SGOT) Pending Alanine Aminotransferase (ALT/SGPT) Pending Alkaline Phosphatase Pending Total Creatine Kinase 112 U/L (26-308) Troponin I 0.042 ng/mL (0.000-0.056) Total Protein Pending Albumin Pending Globulin Pending Microbiology Date/Time Source Procedure Growth Status 06/28/18 13:14 Nasal Nares Influenza Types A,B Antigen (KRYSTINA) - Final Complete Height (Feet): 6 Height (Inches): 0.00 Weight (Pounds): 180 Medications Current Medications Medications (Trade) Dose Ordered Sig/Yoandy Route PRN Reason Start Time Stop Time Status Last Admin Dose Admin Aspirin (Ecotrin) 81 mg DAILY ORAL 06/29/18 09:00 07/29/18 08:59 06/29/18 08:43 Atorvastatin Calcium (Lipitor) 40 mg BEDTIME ORAL 06/28/18 21:00 07/28/18 20:59 06/28/18 21:21 Bisacodyl (Dulcolax) 10 mg DAILYPRN PRN RECTAL Constipation 06/29/18 09:15 07/29/18 09:14 Dextrose (Dextrose 50%) 25 ml Q30M PRN IV Hypoglycemia 06/28/18 19:00 07/28/18 18:59 Dextrose (Dextrose 50%) 50 ml Q30M PRN IV Hypoglycemia 06/28/18 19:00 07/28/18 18:59 Docusate Sodium (Colace) 100 mg EVERY 12 HOURS ORAL 06/29/18 21:00 07/29/18 20:59 Insulin Aspart (NovoLOG) BEFORE MEALS AND HS SUBQ 06/28/18 21:00 07/28/18 20:59 06/29/18 06:32 Insulin Detemir (Levemir) 10 units BEDTIME SUBQ 06/28/18 21:00 07/28/18 20:59 Insulin Detemir (Levemir) 15 units BEFORE BREAKFAST SUBQ 06/29/18 06:30 2/28/19 06:29 06/29/18 06:34 Levetiracetam (Keppra) 1,500 mg Q12HR ORAL 06/28/18 21:00 07/28/18 20:59 06/29/18 08:56 Levothyroxine Sodium (Synthroid) 25 mcg ACBREAKFAST ORAL 06/29/18 06:30 07/29/18 06:29 06/29/18 06:31 Lorazepam (Ativan 2mg/ml 1ml) 1 mg Q4H PRN IV For Seizures 06/29/18 09:45 07/06/18 09:44 Magnesium Hydroxide (Mom) 30 ml HSPRN PRN ORAL Constipation 06/29/18 09:15 07/29/18 09:14 Multivitamins Therapeutic (Therapeutic Multivitamin) 1 ea DAILY ORAL 06/29/18 09:00 07/29/18 08:59 06/29/18 08:43 Olanzapine (ZyPREXA) 7.5 mg Q6H PRN ORAL Agitation 06/29/18 11:00 07/29/18 10:59 Ondansetron HCl (Zofran) 4 mg Q6H PRN IVP Nausea & Vomiting 06/29/18 09:15 07/29/18 09:14 Quetiapine Fumarate (SEROquel) 25 mg Q12HR ORAL 06/28/18 21:00 07/28/18 20:59 06/29/18 08:56 Risperidone (RisperDAL) 1.5 mg BID ORAL 06/29/18 09:00 07/29/18 08:59 06/29/18 08:59 Sodium Chloride 1,000 ml @ 75 mls/hr [id number] IV 06/29/18 11:00 07/29/18 10:59 Assessment/Plan Problem List: (1) Schizophrenia ICD Codes: F20.9 - Schizophrenia, unspecified SNOMED: 14476096 (2) Uncontrolled seizures ICD Codes: R56.9 - Unspecified convulsions SNOMED: 45717820 (3) Agitation ICD Codes: R45.1 - Restlessness and agitation SNOMED: 311237608 (4) Acute metabolic encephalopathy ICD Codes: G93.41 - Metabolic encephalopathy SNOMED: 57601915, 419543478 Assessment/Plan dc risperdal dc zyprexa cont seroquel increase it to tid hold if sedated seroJoey Galaviz MD Jun 29, 2018 12:15
[2018-06-29 14:27] LABS: ALANINE AMINOTRANSFERASE 26 U/L (12-78); ALBUMIN 2.9 G/DL (3.4-5.0); ALBUMIN/GLOBULIN RATIO 0.7 (1.0-2.7); ALKALINE PHOSPHATASE 82 U/L (46-116); ANION GAP 9 mmol/L (5-15); ASPARTATE AMINO TRANSFERASE 17 U/L (15-37); BILIRUBIN,TOTAL 0.4 MG/DL (0.2-1.0); BLOOD UREA NITROGEN 48 mg/dL (7-18); CALCIUM 8.9 MG/DL (8.5-10.1); CARBON DIOXIDE 25 MMOL/L (21-32); CHLORIDE 109 MMOL/L (98-107); CREATININE 2.2 MG/DL (0.55-1.30); POTASSIUM 4.8 MMOL/L (3.5-5.1); SODIUM 143 MMOL/L (136-145)
[2018-06-29 16:00] VITALS: BP 150/87
--- NOTE | 2018-06-29 16:12 | History & Physical ---
History of Present Illness General Date patient seen: Jun 29, 2018 Time patient seen: 10:00 Reason for Hospitalization: Seizure Present Illness HPI 78 year old male with PMH of DM, HTN, epilepsy, hyperthyroidism and cirrhosis was transferred from SNF for seizure activities. Pt received an extra dose of keppra at shelter and was transferred to [facility] for further evaluation. Pt is a poor historian, able to say name and place, does not know year, states he feels tired, otherwise no other complaints. In the ED CT head was unremarkable, pt loaded with Keppra. Allergies: Coded Allergies: No Known Allergies (Unverified , 02/13/18) Medication History Scheduled Aspirin Ec* (Aspirin Ec*), 81 MG ORAL DAILY, (Reported) Atorvastatin Calcium* (Atorvastatin Calcium*), 40 MG ORAL BEDTIME, (Reported) Glipizide* (Glucotrol*), 10 MG ORAL ACBREAKFAST, (Reported) Insulin Glargine (Lantus), 30 UNITS SUBQ BEFORE BREAKFAST, (Reported) Insulin Glargine (Lantus), 10 UNITS SUBQ BEDTIME, (Reported) Levetiracetam (Keppra), 1,500 MG ORAL BID, (Reported) Levothyroxine Sodium* (Synthroid*), 25 MCG ORAL DAILY, (Reported) Lisinopril* (Lisinopril*), 10 MG ORAL DAILY, (Reported) Quetiapine Fumarate* (Seroquel*), 25 MG ORAL Q12HR Risperidone* (Risperdal*), 1.5 MG ORAL BID, (Reported) Sitagliptin (Januvia), 100 MG ORAL DAILY, (Reported) [Lispro 100 Units/Ml], 3 UNITS SUBQ TID, (Reported) Miscellaneous Medications Cranberry (Cranberry), 450 MG PO, (Reported) Multivitamin-Min/Iron/FA/Vit K (Multi-Day Plus Minerals Tablet), 1 EACH PO, ( Reported) Patient History Limited by: age, medical condition History Provided By: Medical Record Healthcare decision maker Resuscitation status Full code Advanced Directive on File Patient History Narrative DM, htnb, epilepsy, hyperthyroidism, cirrhosis Family History Family History: Unable to obtain due to encephalopathy Review of Systems Review of Symptoms Unable to obtain due to clinical status Physical Exam Physical Exam General appearance: alert, non cooperative, no distress, appears stated age Head: Normocephalic, without obvious abnormality, atraumatic Eyes: conjunctivae/corneas clear. PERRL, EOM's intact. Fundi benign Throat: Lips, mucosa, and tongue normal. Teeth and gums normal Neck: supple, symmetrical, trachea midline, no adenopathy, thyroid: not enlarged, symmetric, no tenderness/mass/nodules, no carotid bruit and no JVD Lungs: clear to auscultation bilaterally Heart: regular rate and rhythm, S1, S2 normal, no murmur, click, rub or gallop Abdomen: soft, non-tender. Bowel sounds normal. No masses, Extremities: extremities normal, atraumatic, no cyanosis or edema Pulses: 2+ and symmetric Skin: Skin color, texture, turgor normal. No rashes or lesions Neurologic: Grossly normal AAOx2 Last 24 Hour Vital Signs Date Time Temp Pulse Resp B/P (MAP) Pulse Ox O2 Delivery O2 Flow Rate FiO2 06/29/18 12:00 74 06/29/18 09:00 Room Air 06/29/18 08:00 82 06/29/18 04:00 98.3 84 20 137/75 (95) 98 06/29/18 04:00 72 06/29/18 00:00 76 06/28/18 21:00 Room Air 06/28/18 20:00 98.0 76 20 156/82 (106) 99 06/28/18 20:00 83 06/28/18 16:40 98.0 82 17 131/75 98 Room Air 06/28/18 16:40 98.0 78 18 131/78 99 Room Air 06/28/18 16:35 Room Air 06/28/18 16:30 96.8 75 20 148/84 (105) 99 Intake and Output 06/28/18 06/29/18 19:00 07:00 Intake Total 0 ml Balance 0 ml Intake Oral 0 ml # Voids 2 3 # Bowel Movements 4 Laboratory Tests Test 06/29/18 06:56 06/29/18 09:45 06/29/18 13:55 White Blood Count 3.1 K/UL (4.8-10.8) L 3.1 K/UL (4.8-10.8) L Red Blood Count 2.60 M/UL (4.70-6.10) L 2.47 M/UL (4.70-6.10) L Hemoglobin 8.0 G/DL (14.2-18.0) L 7.7 G/DL (14.2-18.0) L Hematocrit 24.0 % (42.0-52.0) L 22.6 % (42.0-52.0) L Mean Corpuscular Volume 93 FL (80-99) 91 FL (80-99) Mean Corpuscular Hemoglobin 30.8 PG (27.0-31.0) 31.4 PG (27.0-31.0) H Mean Corpuscular Hemoglobin Concent 33.2 G/DL (32.0-36.0) 34.3 G/DL (32.0-36.0) Red Cell Distribution Width 13.5 % (11.6-14.8) 13.7 % (11.6-14.8) Platelet Count 76 K/UL (150-450) L 73 K/UL (150-450) L Mean Platelet Volume 8.0 FL (6.5-10.1) 7.9 FL (6.5-10.1) Neutrophils (%) (Auto) % (45.0-75.0) % (45.0-75.0) Lymphocytes (%) (Auto) % (20.0-45.0) % (20.0-45.0) Monocytes (%) (Auto) % (1.0-10.0) % (1.0-10.0) Eosinophils (%) (Auto) % (0.0-3.0) % (0.0-3.0) Basophils (%) (Auto) % (0.0-2.0) % (0.0-2.0) Differential Total Cells Counted 100 100 Neutrophils % (Manual) 64 % (45-75) 70 % (45-75) Lymphocytes % (Manual) 28 % (20-45) 20 % (20-45) Monocytes % (Manual) 4 % (1-10) 3 % (1-10) Eosinophils % (Manual) 2 % (0-3) 3 % (0-3) Basophils % (Manual) 1 % (0-2) 0 % (0-2) Band Neutrophils 1 % (0-8) 4 % (0-8) Platelet Estimate Decreased L Decreased L Platelet Morphology Normal Normal Red Blood Cell Morphology Normal Normal Sodium Level 142 MMOL/L (136-145) 143 MMOL/L (136-145) Potassium Level 4.9 MMOL/L (3.5-5.1) 4.8 MMOL/L (3.5-5.1) Chloride Level 109 MMOL/L (98-107) H 109 MMOL/L (98-107) H Carbon Dioxide Level 24 MMOL/L (21-32) 25 MMOL/L (21-32) Anion Gap 9 mmol/L (5-15) 9 mmol/L (5-15) Blood Urea Nitrogen 51 mg/dL (7-18) H 48 mg/dL (7-18) H Creatinine 2.1 MG/DL (0.55-1.30) H 2.2 MG/DL (0.55-1.30) H Estimat Glomerular Filtration Rate mL/min (>60) mL/min (>60) Glucose Level 209 MG/DL (74-106) H 256 MG/DL (74-106) H Calcium Level 9.1 MG/DL (8.5-10.1) 8.9 MG/DL (8.5-10.1) Total Creatine Kinase 112 U/L (26-308) Troponin I 0.042 ng/mL (0.000-0.056) Lactic Acid Level 2.90 mmol/L (0.4-2.0) H Total Bilirubin 0.4 MG/DL (0.2-1.0) Aspartate Amino Transf (AST/SGOT) 17 U/L (15-37) Alanine Aminotransferase (ALT/SGPT) 26 U/L (12-78) Alkaline Phosphatase 82 U/L (46-116) Total Protein 6.8 G/DL (6.4-8.2) Albumin 2.9 G/DL (3.4-5.0) L Globulin 3.9 g/dL Albumin/Globulin Ratio 0.7 (1.0-2.7) L Height (Feet): 6 Height (Inches): 0.00 Weight (Pounds): 180 Medications Current Medications Medications (Trade) Dose Ordered Sig/Yoandy Route PRN Reason Start Time Stop Time Status Last Admin Dose Admin Aspirin (Ecotrin) 81 mg DAILY ORAL 06/29/18 09:00 07/29/18 08:59 06/29/18 08:43 Atorvastatin Calcium (Lipitor) 40 mg BEDTIME ORAL 06/28/18 21:00 07/28/18 20:59 06/28/18 21:21 Bisacodyl (Dulcolax) 10 mg DAILYPRN PRN RECTAL Constipation 06/29/18 09:15 07/29/18 09:14 Dextrose (Dextrose 50%) 25 ml Q30M PRN IV Hypoglycemia 06/28/18 19:00 07/28/18 18:59 Dextrose (Dextrose 50%) 50 ml Q30M PRN IV Hypoglycemia 06/28/18 19:00 07/28/18 18:59 Docusate Sodium (Colace) 100 mg EVERY 12 HOURS ORAL 06/29/18 21:00 07/29/18 20:59 Insulin Aspart (NovoLOG) BEFORE MEALS AND HS SUBQ 06/28/18 21:00 07/28/18 20:59 06/29/18 06:32 Insulin Detemir (Levemir) 10 units BEDTIME SUBQ 06/28/18 21:00 07/28/18 20:59 Insulin Detemir (Levemir) 15 units BEFORE BREAKFAST SUBQ 06/29/18 06:30 07/29/18 06:29 06/29/18 06:34 Levetiracetam (Keppra) 1,500 mg Q12HR ORAL 06/28/18 21:00 07/28/18 20:59 06/29/18 08:56 Levothyroxine Sodium (Synthroid) 25 mcg ACBREAKFAST ORAL 06/29/18 06:30 07/29/18 06:29 06/29/18 06:31 Lorazepam (Ativan 2mg/ml 1ml) 2 mg Q4H PRN IV For Seizures 06/29/18 13:45 07/06/18 13:44 Magnesium Hydroxide (Mom) 30 ml HSPRN PRN ORAL Constipation 06/29/18 09:15 07/29/18 09:14 Multivitamins Therapeutic (Therapeutic Multivitamin) 1 ea DAILY ORAL 06/29/18 09:00 07/29/18 08:59 06/29/18 08:43 Ondansetron HCl (Zofran) 4 mg Q6H PRN IVP Nausea & Vomiting 06/29/18 09:15 07/29/18 09:14 Quetiapine Fumarate (SEROquel) 25 mg TID ORAL 06/29/18 13:00 07/29/18 12:59 06/29/18 13:38 Quetiapine Fumarate (SEROquel) 50 mg Q6H PRN ORAL For Anxiety 06/29/18 12:15 07/29/18 12:14 Sodium Chloride 1,000 ml @ 75 mls/hr [id number] IV 06/29/18 11:00 07/29/18 10:59 06/29/18 11:00 Assessment/Plan Assessment/Plan #Epilepsy with breakthrough seizures -Resume home meds -s/p keppra load in ED -Will change keppra to IV for now until mental status improves -Neurology consulted (Dr. Lacy) -Seizure precautions -Ativan IM PRN for seizure activity -adjust antiepileptic per neurology #Lactic acidosis -likly 2/2 seizures -no infectious process suspected at this time -CTM #DM2 -Will hold oral DM meds as inpatient -Pt with decreased food intake, will decrease Lantus and titrate up as needed #Hypothyroidism -Cont synthroid #Pancytopenia -Anemia panel c/w ACD -likely 2/2 chronic liver disease and spleenomegaly -Appreciate Dr. Moreno consult #Cirrhosis #nodule - hypoechoic at tip of R hepatic lobe -ammonia WNL -Will need outpatient CT scan with contrast #AGUILAR -maintenance IV fluids started, however pt pulled out IV line -Encouraged PO intake, RN states PO intake is good. -CTM #Acute encephalopathy 2/2 chronic dementia, postictal state, sedative medications -Avoid benzos if possible -frequent orientation -fall precautions -aspiration precautions -Psych consult appreciated #Schizophrenia #Agitation -appreciate psych consult -Seroquel increased to TID -Cont seroquel PRN [facility] Hospital declaration INPATIENT level of care is warranted for this patient because patient is a 89 year old with seizure disorder, dm who presents with suspicion of breakthrough seizures. I have a high level of concern because pts mental status. Patient is at high risk for prolong seizure activity. Plan of care/treatment include IV keppra. Patient care is expected to be greater than 2 midnights. Disposition: Once the patient is stable to leave the hospital, I anticipate the patient will likely be discharged to the following environment: SNF Estimated discharge date: 07-01-18 I spent 70 minutes on this patient's case, and 42 minutes was dedicated to counseling and/or care coordination. MIPS ([employer]it-based Incentive Payment System) Applicable CPT: 67749, 68927 CHECK ALL THAT ARE MET: Measure #5 (CHF): All ages. Prescribe LUCINA/ARB upon discharge for patients with left ventricular systolic dysfunction. If not, the reason is clearly documented in the medical chart. Measure #8 (CHF): All ages. Prescribe a beta ernesto upon discharge for patients with left ventricular systolic dysfunction. If not, the reason is clearly documented in the medical chart. Measure #47 Advance care plan or surrogate decision maker documented in the medical record. Measure #130 The provider has documented, updated, or reviewed the patients current medication list and has documented it in the patients note. Measure #374 (All): Send report to referring provider. Measure #407(Sepsis due to MSSA bacteremia): Age 18+ Patient treated with a beta-lactam antibiotic (Nafcillin, Oxacillin or Cefazolin) as definitive therapy. MEDICAL COMPLEXITY High complexity medical decision making (need 2/3 categories) Problem - need 4 points Acute/new problem with new plan for workup (4 points, 1 max) Acute/new problem without additional workup (3 points, 1 max) Unstable chronic problem actively being managed (2 point each, 2 max) Stable chronic problem actively being managed (1 point each, 2 max) Self-limited/transient process (constipation, muscle ache, etc) (1 point each , 2 max) Data - need 4 points Reviewed labs/imaging studies (1 points, 2 max) Independent review of imaging (EKG, xrays, etc) (2 points, 2 max) Discussed case with consult/other MD/RN (2 points, 2 max) High Risk - qualify if have one of the following: Severe exacerbation of acute problem, acute mental status change, IV narcotics , monitoring drug levels (vancomycin, INR, tacrolimus etc) Elsa Martinez MD Jun 29, 2018 16:12
[2018-06-29] MEDS ORDERED: LORazepam Inj 2mg/ml 1ml IM PRN ×2 (16:30→17:00)
--- NOTE | 2018-06-29 17:02 | Consultation ---
Consult Note Consult Note NEUROLOGY CONSULTATION: Full note dictated #[id number] 78 y/o, RH, CM with PH of psychiatric illness, stroke, seizure disorder - type unknown, DM, HTN, hypothyroidism, cirrhosis of the liver and colon cancer who lives in a NH. He was brought into the [facility] ER for 2 breakthrough seizures. As per his nurse he has had 2 more seizures consisting of left UE jerking movements. ON EXAM: Problems with memory, VSF, HCF, Language. Dysarthria. Left VII central Left UE>LE weakness Globally diminished DTRs with flexor plantars. IMPRESSION: 1. Breakthrough seizures in patient with prior H/O seizures -type unknown. 2. Left paresis - acute vs chronic. REC: EEG. MRI of brain. Increase Keppra to 2 G q 12 H. Only give IV Ativan for generalized seizure. Observe. Brian Lacy M.D., M.S.P.H. Brian Lacy MD Jun 29, 2018 17:02
--- NOTE | 2018-06-29 19:30 | Consultation ---
DATE OF CONSULTATION: 06/29/2018 NEUROLOGY CONSULTATION CONSULTING PHYSICIAN: Brian Lacy M.D. REFERRING PHYSICIAN: Stella Gandara M.D. HISTORY: Mr. Chip Laureano is a 78-year-old, right-handed, gentleman, who does have a past history of a psychiatric illness, a stroke numerous years ago, a seizure disorder of unknown type following the stroke, diabetes mellitus, hypertension, hypothyroidism, cirrhosis of the liver, and colon cancer who lives in the residential. He was apparently noted to have two seizures, the exact description of which is not known to us, and as a result of that was brought into the [facility] emergency room. He was given an extra dose of Keppra and then transferred to the floor. As per his nurse, he has had two more seizures consisting of left upper extremity jerking movements lasting for few seconds. He has also been not behaving himself as a result of which he was given extra medicines to sedate him and in addition he is in two-point restraints. The patient is himself is unable to give me much of a history. PAST MEDICAL HISTORY: Significant for hypertension, diabetes mellitus, hypothyroidism, psychiatric illness, stroke, seizure disorder, cirrhosis of the liver, colon cancer. FAMILY HISTORY: Nothing significant as per the patient with no family history of neurological illness. PERSONAL HISTORY: Home: He lives in residential. 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 Habits: He used to smoke and drink but stopped doing both numerous years ago. He denies use of any illicit drugs. PRESENT MEDICATIONS: Include docusate sodium, Ativan 2 mg q. 4 hours p.r.n. , Seroquel 25 mg tid, Seroquel 50 mg q 6 hours p.r.n., Dulcolax, milk of magnesia, Zofran, aspirin 81 mg daily, multivitamins, Synthroid, insulin, Lipitor, Keppra 1.5 G q 12 H. PHYSICAL EXAMINATION: GENERAL: He is a well-developed, well-nourished, gentleman, lying in bed, in two-point soft restraints. VITAL SIGNS: Pulse 74/minute, blood pressure 137/75 mmHg, respirations 20/minute, and temperature 98.3 degrees Fahrenheit. HEAD: Normocephalic and atraumatic. EENT: Examination benign. NECK: No neck rigidity was observed. NEUROLOGICAL EXAMINATION: MENTAL STATUS EXAMINATION: He was awake and alert. He was oriented to self and hospital. He had no idea of the name of the hospital, date, month, or year. He was able to recall 3/3 words immediately, but could not remember any of them in 1 minute and 3 minutes. He was unable to tell me who the present President was and who prior presidents were. His mathematical skills were impaired. His visuospatial function was also impaired. SPEECH: He had moderate dysarthria. LANGUAGE: He had an anomia for low and mid frequency words. CRANIAL NERVE EXAMINATION: II: The visual sullivan were intact to confrontation testing. III, IV & : The external ocular movements were full and the pupils 3 mm in diameter, equal, round, regular, and reactive to light. V: He had normal facial sensations and the temporales, masseters, and pterygoids functioned normally. VII: He had left seventh central facial paresis. VIII: He was able to hear well bilaterally and had no nystagmus. IX: The palate moved symmetrically on phonation. X: He had no hoarseness of voice. XI: The sternocleidomastoids and trapezii functioned normally. XII: The tongue was in the midline without any fasciculations or atrophy. MOTOR SYSTEM: The tone was normal in all four extremities. Examination of muscle mass revealed mild wasting of the small hand muscles on the left side. Examination of power was exceedingly difficult to perform because of varying amounts of effort. He definitely had a left hemiparesis involving the upper extremity more than lower extremity and in addition a minor degree of right lower extremity paresis. SENSORY EXAMINATION: He had intact sensations to deep pain. He was unable to cooperate for the sensory modalities. REFLEXES: Trace+ and bilaterally symmetrical at the biceps, triceps, brachioradialis, and knees, 0 at both ankles. The plantar responses were flexor bilaterally. STANCE & GAIT: Could not be tested. DIAGNOSTIC IMPRESSION: 1. Mr. Chip Laureano is a 78-year-old, right-handed, gentleman, who does have a past history of hypertension, diabetes mellitus, hypothyroidism, stroke, seizure disorder, cirrhosis of the liver, colon cancer, and unknown type of psychiatric illness, who was hospitalized for two breakthrough seizures at his residential. The exact details of which are unknown to us. Since he has been in the hospital, he has had two more brief episodes of left upper extremity jerking. 2. On neurological examination, at this time, he exhibits significant problems with orientation, recent and remote memory, visuospatial function, higher cognitive function, and language. He also has a significant dysarthria, left seventh central facial paresis, left upper extremity greater than lower extremity paresis, proximal right lower extremity paresis, and globally diminished deep tendon reflexes with flexor plantar responses. 3. The CT scan of the brain without contrast reveals atrophy and deep white matter changes, but no definite acute pathology. 4. Laboratory data obtained thus far have revealed that he is significantly anemic with a hemoglobin of 7.7 G. His chemistry panel reveals a BUN elevated at 48 with a creatinine of 2.2, blood glucose elevated at 256, albumin low at 2.9, TSH is high at 4.25 with a free T3 low at 2.0 and a normal free T4 at 0.84. His serum ammonia is normal at 14. His urinalysis is negative for leukocyte esterase with 0-4 red blood cells, and 0-2 white blood cells per high-power field. 5. The patient's history and neurological examination are most compatible with breakthrough seizures in a patient with a prior history of seizures of an unknown type who now has toxic metabolic insults including a significant anemia, renal dysfunction. RECOMMENDATIONS: 1. Agree with management thus far. 2. Would increase the patient's dose of Keppra to 2 G q 12 hours. 3. Would give Ativan only if the patient has a generalized seizure and not for partial seizures. 4. An EEG will be ordered to evaluate the patient for the type of seizure disorder. 5. An MRI scan of the brain will be ordered to evaluate the patient for intracranial pathology which is responsible for his left paresis and possibly seizures. 6. The patient will be observed closely and depending on how he fares over the next day or so, further recommendations will be given. Thank you for entrusting me with the care of Mr. Laureano. I shall follow him with you. Brian Lacy M.D., M.S.P.H. DR: Samm JOB#: [id number] JOSE
[2018-06-29 20:00] VITALS: BP 156/89
[2018-06-29] MEDS ORDERED: Heparin 5000 units/ml inj SUBQ SCH (21:00)
[2018-06-29] MEDS: Docusate 100mg cap ORAL SCH (22:02)
[2018-06-29] MEDS: Atorvastatin 80mg tab ORAL SCH (22:02)
[2018-06-30] VITALS: BP 153/91
[2018-06-30 04:00] VITALS: BP 161/84
[2018-06-30] MEDS: Levothyroxine 25mcg tab ORAL SCH (06:34)
[2018-06-30] MEDS: NovoLOG Insulin Flexpen SUBQ SCH ×4 (06:38→21:00)
[2018-06-30] MEDS: Levemir Flexpen SUBQ SCH ×2 (06:41→21:00)
[2018-06-30 08:00] VITALS: BP 144/70
[2018-06-30 08:28] LABS: HEMATOCRIT 24.5 % (42.0-52.0); HEMOGLOBIN 8.2 G/DL (14.2-18.0); MEAN CORPUSCULAR VOLUME 92 FL (80-99); PLATELET COUNT 88 K/UL (150-450); RED BLOOD COUNT 2.66 M/UL (4.70-6.10); RED CELL DISTRIBUTION WIDTH 13.7 % (11.6-14.8); WHITE BLOOD COUNT 4.4 K/UL (4.8-10.8)
--- NOTE | 2018-06-30 08:28 | General Progress Note ---
Assessment/Plan Status: unchanged Assessment/Plan #Epilepsy with breakthrough seizures - partial seizure overnight -Resume home meds -s/p keppra load in ED -Neurology consulted (Dr. Lacy) -Seizure precautions -Ativan IM PRN for seizure activity -adjust antiepileptic per neurology -EEG, MRI pending -inc keppra to 2g bid -need IV access then change meds to IV or else difficult time having patient take meds PO #Lactic acidosis -likly 2/2 seizures -no infectious process suspected at this time -CTM #DM2 -Will hold oral DM meds as inpatient -Pt with decreased food intake, will decrease Lantus and titrate up as needed #Hypothyroidism -Cont synthroid #Pancytopenia -Anemia panel c/w ACD -likely 2/2 chronic liver disease and spleenomegaly -Appreciate Dr. Moreno consult #Cirrhosis #nodule - hypoechoic at tip of R hepatic lobe -ammonia WNL -Will need outpatient CT scan with contrast #AGUILAR -maintenance IV fluids started, however pt pulled out IV line -Encouraged PO intake, RN states PO intake is good. -CTM #Acute encephalopathy 2/2 chronic dementia, postictal state, sedative medications -Avoid benzos if possible -frequent orientation -fall precautions -aspiration precautions -Psych consult appreciated #Schizophrenia #Agitation -appreciate psych consult -Seroquel increased to TID -Cont seroquel PRN diet: regular ppx: scd, sqh code : full Hospital declaration INPATIENT level of care is warranted for this patient because patient is a78 year old with seizure disorder, dm who presents with suspicion of breakthrough seizures. I have a high level of concern because pts mental status. Patient is at high risk for prolong seizure activity. Plan of care/treatment include IV keppra. Patient care is expected to be greater than 2 midnights. Disposition: Once the patient is stable to leave the hospital, I anticipate the patient will likely be discharged to the following environment: SNF Estimated discharge date: 07-01-18 I spent 70 minutes on this patient's case, and 42 minutes was dedicated to counseling and/or care coordination. Subjective Date patient seen: Jun 30, 2018 Time patient seen: 08:21 Allergies: Coded Allergies: No Known Allergies (Unverified , 02/13/18) Subjective f/u seizures, encephalopathy partial seizure overnight agitated denies fevers/chills/KEYS/cp/sob ROS: 14 point ROS reviewed and negative except per the above Objective Last 24 Hour Vital Signs Date Time Temp Pulse Resp B/P (MAP) Pulse Ox O2 Delivery O2 Flow Rate FiO2 06/30/18 07:44 Room Air 06/30/18 04:00 93 06/30/18 04:00 97.2 85 20 161/84 (109) 94 06/30/18 00:00 91 06/30/18 00:00 97.0 92 20 153/91 (111) 96 06/29/18 21:00 Room Air 06/29/18 20:00 106 06/29/18 20:00 97.3 90 20 156/89 (111) 95 06/29/18 16:00 97.1 85 20 150/87 (108) 98 06/29/18 12:00 97.3 81 20 142/74 (96) 98 06/29/18 12:00 74 06/29/18 09:00 Room Air Intake and Output 06/29/18 06/30/18 19:00 07:00 Intake Total 800 ml 120 ml Balance 800 ml 120 ml Intake Oral 800 ml 120 ml # Voids 3 4 # Bowel Movements 4 Laboratory Tests 06/29/18 09:45: White Blood Count 3.1L, Red Blood Count 2.47L, Hemoglobin 7.7L, Hematocrit 22.6L , Mean Corpuscular Volume 91, Mean Corpuscular Hemoglobin 31.4H, Mean Corpuscular Hemoglobin Concent 34.3, Red Cell Distribution Width 13.7, Platelet Count 73L, Mean Platelet Volume 7.9, Neutrophils (%) (Auto) , Lymphocytes (%) ( Auto) , Monocytes (%) (Auto) , Eosinophils (%) (Auto) , Basophils (%) (Auto) , Differential Total Cells Counted 100, Neutrophils % (Manual) 70, Lymphocytes % ( Manual) 20, Monocytes % (Manual) 3, Eosinophils % (Manual) 3, Basophils % ( Manual) 0, Band Neutrophils 4, Platelet Estimate DecreasedL, Platelet Morphology Normal, Red Blood Cell Morphology Normal, Total Creatine Kinase 112, Troponin I 0.042 06/29/18 13:55: Sodium Level 143, Potassium Level 4.8, Chloride Level 109H, Carbon Dioxide Level 25, Anion Gap 9, Blood Urea Nitrogen 48H, Creatinine 2.2H, Estimat Glomerular Filtration Rate , Glucose Level 256H, Lactic Acid Level 2.90H, Calcium Level 8.9, Total Bilirubin 0.4, Aspartate Amino Transf (AST/SGOT) 17, Alanine Aminotransferase (ALT/SGPT) 26, Alkaline Phosphatase 82, Total Protein 6.8, Albumin 2.9L, Globulin 3.9, Albumin/Globulin Ratio 0.7L Height (Feet): 6 Height (Inches): 0.00 Weight (Pounds): 218 Objective Physical Exam General appearance: alert, non cooperative, agitated, no distress, appears stated age Head: Normocephalic, without obvious abnormality, atraumatic Eyes: conjunctivae/corneas clear. PERRL, EOM's intact. Fundi benign Throat: Lips, mucosa, and tongue normal. Teeth and gums normal Neck: supple, symmetrical, trachea midline, no adenopathy, thyroid: not enlarged, symmetric, no tenderness/mass/nodules, no carotid bruit and no JVD Lungs: clear to auscultation bilaterally Heart: regular rate and rhythm, S1, S2 normal, no murmur, click, rub or gallop Abdomen: soft, non-tender. Bowel sounds normal. No masses, Extremities: extremities normal, atraumatic, no cyanosis or edema Pulses: 2+ and symmetric Skin: Skin color, texture, turgor normal. No rashes or lesions Neurologic: Grossly normal, AAO to person , will not answer where he is or date. Teofilo Gandara MD Jun 30, 2018 08:28
[2018-06-30] MEDS: Aspirin EC 81mg tab ORAL SCH ×2 (08:33→08:58)
[2018-06-30] MEDS: Docusate 100mg cap ORAL SCH ×3 (08:33→21:17)
[2018-06-30] MEDS: Multivitamin w/Minerals tab ORAL SCH ×2 (08:34→08:59)
[2018-06-30 09:03] LABS: ANION GAP 10 mmol/L (5-15); BLOOD UREA NITROGEN 44 mg/dL (7-18); CALCIUM 8.8 MG/DL (8.5-10.1); CARBON DIOXIDE 25 MMOL/L (21-32); CHLORIDE 112 MMOL/L (98-107); POTASSIUM 4.5 MMOL/L (3.5-5.1); SODIUM 147 MMOL/L (136-145)
[2018-06-30] MEDS ORDERED: DiphenhydrAMINE 50mg/ml Inj IM SCH (10:12)
[2018-06-30] MEDS ORDERED: LORazepam Inj 2mg/ml 1ml IM SCH (10:12)
--- NOTE | 2018-06-30 13:45 | General Progress Note ---
Assessment/Plan Assessment/Plan Assessment/Recs: # Pancytopenia - cirrhosis++ and large spleen ++ in addition has evidence of cirrhosis on the us of the abdomen --> Hiv and hepatitis panel on prior admission was negative --> us of the abdomen shows spenomegaly that is enlarged spleen (REPEAT ON THIS ADMISSION) --> anemia panel ordered as well, ferritin, tibc, folic acid, tsh, occult blood- -> consistent with anemia of chronic disease --> peripheral smear reviewed and shows no significant abnml --> r/o infectious etiology, cultures have been negative thus far --> Neupogen if ANC <1000 # Anemia of chronic disease - consistent with above diagnosis --> anemia panel reviewed --> panel has been reviewed --> hgb goal >7 # 14 x 4 mm nodule hypoechoic structure at the tip of the right hepatic lobe --> outpatient CT scan with contrast of the abdomen can be completed # Acute encephalopathy superimposed on chronic dementia, also exacerbated by sedative medications given for agitation. Unclear etiology, could be related to mild AGUILAR present on admission or occult infection. --> avoid benzos, frequent orienting, fall, aspiration precautions. --> Correct underlying AGUILAR. --> Psychiatry consulted. appreciate recs # Mild AGUILAR, cr in the past elevated as well --> Avoid nephrotic meds, given ivf # History of epilepsy, will give Keppra intravenously as he is unable to take PO meds due to lethargy --> continue as per neuro/pcp # Type 2 DM, controlled, hold oral diabetic meds while oral intake is minimal, will give reduced dose Lantus # Hypothyroidism, continue levothyroxine - can give intravenously if he remains lethargic. # Azotemia has been reviewed # DVT ppx is ok with heparin if plt >50k GREATLY APPRECIATE CONSULTATION! Subjective ROS Limited/Unobtainable: No HEENT: Denies: no symptoms, eye pain, blurred vision, tearing, double vision, ear pain, ear discharge, nose pain, nose congestion, throat pain, throat swelling, mouth pain, mouth swelling, other Cardiovascular: Denies: no symptoms, chest pain, edema, irregular heart rate, lightheadedness, palpitations, syncope, other Respiratory: Denies: no symptoms, cough, orthopnea, shortness of breath, SOB with excertion, SOB at rest, sputum, stridor, wheezing, other Gastrointestinal/Abdominal: Denies: no symptoms, abdomen distended, abdominal pain, black stools, tarry stools, blood in stool, constipated, diarrhea, difficulty swallowing, nausea, poor appetite, poor fluid intake, rectal bleeding , vomiting, other Genitourinary: Denies: no symptoms, burning, discharge, frequency, flank pain, hematuria, incontinence, pain, urgency, other Neurologic/Psychiatric: Denies: no symptoms, anxiety, depressed, emotional problems, headache, numbness, paresthesia, pre-existing deficit, seizure, tingling, tremors, weakness, other Endocrine: Denies: no symptoms, excessive sweating, flushing, intolerance to cold, intolerance to heat, increased hunger, increased thirst, increased urine, unexplained weight gain, unexplained weight loss, other Hematologic/Lymphatic: Denies: no symptoms, anemia, easy bleeding, easy bruising, other Allergies: Coded Allergies: No Known Allergies (Unverified , 02/13/18) Subjective 06/30: seen in the room , resting, MRI of the brain today, plt 88, no events Objective Last 24 Hour Vital Signs Date Time Temp Pulse Resp B/P (MAP) Pulse Ox O2 Delivery O2 Flow Rate FiO2 06/30/18 13:08 75 06/30/18 08:00 97.2 80 20 144/70 (94) 94 06/30/18 07:49 83 06/30/18 07:44 Room Air 06/30/18 04:00 93 06/30/18 04:00 97.2 85 20 161/84 (109) 94 06/30/18 00:00 91 06/30/18 00:00 97.0 92 20 153/91 (111) 96 06/29/18 21:00 Room Air 06/29/18 20:00 106 06/29/18 20:00 97.3 90 20 156/89 (111) 95 06/29/18 16:00 97.1 85 20 150/87 (108) 98 Intake and Output 06/29/18 06/30/18 19:00 07:00 Intake Total 800 ml 120 ml Balance 800 ml 120 ml Intake Oral 800 ml 120 ml # Voids 3 4 # Bowel Movements 4 Laboratory Tests 06/29/18 13:55: Sodium Level 143, Potassium Level 4.8, Chloride Level 109H, Carbon Dioxide Level 25, Anion Gap 9, Blood Urea Nitrogen 48H, Creatinine 2.2H, Estimat Glomerular Filtration Rate , Glucose Level 256H, Lactic Acid Level 2.90H, Calcium Level 8.9, Total Bilirubin 0.4, Aspartate Amino Transf (AST/SGOT) 17, Alanine Aminotransferase (ALT/SGPT) 26, Alkaline Phosphatase 82, Total Protein 6.8, Albumin 2.9L, Globulin 3.9, Albumin/Globulin Ratio 0.7L 06/30/18 07:50: Sodium Level 147H, Potassium Level 4.5, Chloride Level 112H, Carbon Dioxide Level 25, Anion Gap 10, Blood Urea Nitrogen 44H, Creatinine 2.0H, Estimat Glomerular Filtration Rate , Glucose Level 91#, Lactic Acid Level 0.90, Calcium Level 8.8, White Blood Count 4.4L, Red Blood Count 2.66L, Hemoglobin 8.2L, Hematocrit 24.5L, Mean Corpuscular Volume 92, Mean Corpuscular Hemoglobin 30.9, Mean Corpuscular Hemoglobin Concent 33.5, Red Cell Distribution Width 13.7, Platelet Count 88L, Mean Platelet Volume 8.4, Neutrophils (%) (Auto) , Lymphocytes (%) (Auto) , Monocytes (%) (Auto) , Eosinophils (%) (Auto) , Basophils (%) (Auto) , Differential Total Cells Counted 100, Neutrophils % ( Manual) 82H, Lymphocytes % (Manual) 13L, Monocytes % (Manual) 5, Eosinophils % ( Manual) 0, Basophils % (Manual) 0, Band Neutrophils 0, Platelet Estimate DecreasedL, Platelet Morphology Normal, Hypochromasia 1+, Troponin I 0.052 Height (Feet): 6 Height (Inches): 0.00 Weight (Pounds): 218 Objective Sp02 EP Interpretation: reviewed, normal General Appearance: no apparent distress, alert Respiratory: chest non-tender, lungs clear Cardiovascular: regular rate, rhythm Gastrointestinal: normal bowel sounds Genitourinary: normal inspection, no CVA tenderness Musculoskeletal: back normal, normal range of motion Neurologic: alert, responsive, motor strength/tone normal Watson Adams MD Jun 30, 2018 13:45
[2018-06-30 13:53] VITALS: BP 147/79
--- NOTE | 2018-06-30 15:37 | Diagnostic Imaging Report ---
Indication: Seizure Technique: The head was imaged in a 1.5 Nirali magnet. Sequences obtained include sagittal and axial T1 FLAIR, axial T2 fast spin echo with fat saturation, axial T2 FLAIR, diffusion and ADC map. Comparison: None Findings: There is motion which limits evaluation. There is moderate prominence of the sulci, ventricles, and basal cisterns consistent with atrophy. Moderate, nonspecific T2 hyperintensity noted within white matter. This may be due to chronic small vessel disease. There is no restricted diffusion. Casillas-white differentiation is normal. There is no mass effect, midline shift, edema, or hemorrhage. There are no abnormal extra-axial or intra-axial fluid collections. There is a cavum septum pellucidum incidentally noted. The corpus callosum and sella are unremarkable. The brainstem and cerebellum are unremarkable. Bone marrow signal within the visualized osseous structures appears age appropriate and unremarkable otherwise. Moderate mucosal thickening demonstrated within the visualized paranasal sinuses. Impression: No acute intracranial findings. Moderate atrophy and evidence of chronic small vessel disease involving white matter tracts. Sinusitis
[2018-06-30 16:00] VITALS: BP 140/70
--- NOTE | 2018-06-30 17:31 | Neurology Progress Note ---
Interim History Interim History Interim History Mr. Laureano is sedated now. He can barely keep his eyes open. He was agitated earlier and was given Ativan and Benadryl. He has exhibited no seizures. He is unable to give any further history. Review of Systems Neuro Review of Systems Unable to obtain. Objective Physical Exam Last Vital Signs Date Time Temp Pulse Resp B/P (MAP) Pulse Ox O2 Delivery O2 Flow Rate FiO2 06/30/18 16:00 97.2 73 20 140/70 (93) 94 06/30/18 07:44 Room Air 06/28/18 12:25 94 Laboratory Tests Test 06/30/18 07:50 White Blood Count 4.4 K/UL (4.8-10.8) L Red Blood Count 2.66 M/UL (4.70-6.10) L Hemoglobin 8.2 G/DL (14.2-18.0) L Hematocrit 24.5 % (42.0-52.0) L Mean Corpuscular Volume 92 FL (80-99) Mean Corpuscular Hemoglobin 30.9 PG (27.0-31.0) Mean Corpuscular Hemoglobin Concent 33.5 G/DL (32.0-36.0) Red Cell Distribution Width 13.7 % (11.6-14.8) Platelet Count 88 K/UL (150-450) L Mean Platelet Volume 8.4 FL (6.5-10.1) Neutrophils (%) (Auto) % (45.0-75.0) Lymphocytes (%) (Auto) % (20.0-45.0) Monocytes (%) (Auto) % (1.0-10.0) Eosinophils (%) (Auto) % (0.0-3.0) Basophils (%) (Auto) % (0.0-2.0) Differential Total Cells Counted 100 Neutrophils % (Manual) 82 % (45-75) H Lymphocytes % (Manual) 13 % (20-45) L Monocytes % (Manual) 5 % (1-10) Eosinophils % (Manual) 0 % (0-3) Basophils % (Manual) 0 % (0-2) Band Neutrophils 0 % (0-8) Platelet Estimate Decreased L Platelet Morphology Normal Hypochromasia 1+ Sodium Level 147 MMOL/L (136-145) H Potassium Level 4.5 MMOL/L (3.5-5.1) Chloride Level 112 MMOL/L (98-107) H Carbon Dioxide Level 25 MMOL/L (21-32) Anion Gap 10 mmol/L (5-15) Blood Urea Nitrogen 44 mg/dL (7-18) H Creatinine 2.0 MG/DL (0.55-1.30) H Estimat Glomerular Filtration Rate mL/min (>60) Glucose Level 91 MG/DL (74-106) # Lactic Acid Level 0.90 mmol/L (0.4-2.0) Calcium Level 8.8 MG/DL (8.5-10.1) Troponin I 0.052 ng/mL (0.000-0.056) Neurologic Exam Objective PHYSICAL EXAMINATION: GENERAL: He is a well-developed, well-nourished, gentleman, lying in bed, in two-point soft restraints. HEAD: Normocephalic and atraumatic. EENT: Examination benign. NECK: No neck rigidity was observed. NEUROLOGICAL EXAMINATION: MENTAL STATUS EXAMINATION: He was somnolent and could barely keep his eyes open. He was oriented to self only. He was unable to cooperate for further mental status tests. SPEECH: He had moderate dysarthria. LANGUAGE: Could not be tested due to sedation. CRANIAL NERVE EXAMINATION: II: The visual sullivan were intact to threat. III, IV & : The external ocular movements were full and the pupils 3 mm in diameter, equal, round, regular, and reactive to light. V: He had normal facial sensations and the temporales, masseters, and pterygoids functioned normally. VII: He had left seventh central facial paresis. VIII: He was able to hear well bilaterally and had no nystagmus. IX: The palate moved symmetrically on phonation. X: He had no hoarseness of voice. XI: The sternocleidomastoids and trapezii functioned normally. XII: The tongue was in the midline without any fasciculations or atrophy. MOTOR SYSTEM: The tone was normal in all four extremities. Examination of muscle mass revealed mild wasting of the small hand muscles on the left side. Examination of power was exceedingly difficult to perform because of varying amounts of effort. He definitely had a left hemiparesis involving the upper extremity more than lower extremity and in addition a minor degree of right lower extremity paresis. SENSORY EXAMINATION: He had intact sensations to deep pain. He was unable to cooperate for the sensory modalities. REFLEXES: Trace+ and bilaterally symmetrical at the biceps, triceps, brachioradialis, and knees, 0 at both ankles. The plantar responses were flexor bilaterally. STANCE & GAIT: Could not be tested. Impression/Recommendations Diagnostic Impression 1. Mr. hCip Laureano is a 78-year-old, right-handed, gentleman, who does have a past history of hypertension, diabetes mellitus, hypothyroidism, stroke, seizure disorder, cirrhosis of the liver, colon cancer, and unknown type of psychiatric illness, who was hospitalized for two breakthrough seizures at his long term. The exact details of which are unknown to us. Since he has been in the hospital, he has had two more brief episodes of left upper extremity jerking. 2. He is sedated now. He can barely keep his eyes open. He was agitated earlier and was given Ativan and Benadryl. He has exhibited no seizures. He is unable to give any further history. 3. On neurological examination, at this time, he is somnolent and can barely keep his eyes open. He is oriented to self only. He is unable to cooperate for further mental status tests. He has a moderate dysarthria. Language cannot be tested due to sedation. He has a left seventh central facial paresis, left upper extremity greater than lower extremity paresis, proximal right lower extremity paresis, and globally diminished deep tendon reflexes with flexor plantar responses. 4. The CT scan of the brain without contrast reveals atrophy and deep white matter changes, but no definite acute pathology. 5. The MRI of the brain done on 06/30/17 revealed atrophy and deep which matter disease involving the frontal lobes preferentially. 6. Laboratory data on my iniliat evaluation revealed that he is significantly anemic with a hemoglobin of 7.7 G. His chemistry panel reveals a BUN elevated at 48 with a creatinine of 2.2, blood glucose elevated at 256, albumin low at 2.9, TSH is high at 4.25 with a free T3 low at 2.0 and a normal free T4 at 0.84. His serum ammonia is normal at 14. His urinalysis is negative for leukocyte esterase with 0-4 red blood cells, and 0-2 white blood cells per high- power field. 7. The EEG done on 1/29/19 revealed findings consistent with a moderate encephalopathy and bifrontal dysfunction. He also had an episode of left upper extremity jerking during the EEG. Unfortunately the event occurred while the EEG was on a referential montage and the entire EEG was marred by EMG artifact - however no post-ictal focal slowing was seen. The event was most probably not epileptic in nature. 8. The patient's history, neurological examination, imaging and laboratory date are most compatible with breakthrough seizures in a patient with a prior history of seizures of an unknown type who now has toxic metabolic insults including a significant anemia, renal dysfunction, and is being sedated. Recommendations 1. Continue present management. 2. Continue Keppra 2 G q 12 hours. 3. Would give Ativan only if the patient has a generalized seizure and not for partial seizures. 4. Minimize mind altering drugs so that the patient can function. Brian Lacy M.D., M.S.P.H. Brian Lacy MD Jun 30, 2018 17:31
--- NOTE | 2018-06-30 18:47 | Cardiology Report ---
APPROVED REPORT EKG Measurement Heart [id number] Normal sinus rhythm with sinus arrhythmia Left axis deviation Nonspecific T wave abnormality Abnormal ECG
--- NOTE | 2018-06-30 19:12 | General Progress Note ---
Assessment/Plan Problem List: (1) Schizophrenia ICD Codes: F20.9 - Schizophrenia, unspecified SNOMED: 62111503 (2) Uncontrolled seizures ICD Codes: R56.9 - Unspecified convulsions SNOMED: 26218700 (3) Agitation ICD Codes: R45.1 - Restlessness and agitation SNOMED: 981600913 (4) Acute metabolic encephalopathy ICD Codes: G93.41 - Metabolic encephalopathy SNOMED: 67993948, 503370061 Assessment/Plan cont seroquel increase it to tid hold if sedated seroquel prn ativan and benadryl IM Subjective Neurologic/Psychiatric: Reports: anxiety Allergies: Coded Allergies: No Known Allergies (Unverified , 02/13/18) Subjective severe agitation the pt had seizures the night before. he was on two antipsychotics before admission Objective Last 24 Hour Vital Signs Date Time Temp Pulse Resp B/P (MAP) Pulse Ox O2 Delivery O2 Flow Rate FiO2 06/30/18 16:00 97.2 73 20 140/70 (93) 94 06/30/18 15:14 73 06/30/18 13:53 97.2 80 20 147/79 (101) 94 06/30/18 13:08 75 06/30/18 08:00 97.2 80 20 144/70 (94) 94 06/30/18 07:49 83 06/30/18 07:44 Room Air 06/30/18 04:00 93 06/30/18 04:00 97.2 85 20 161/84 (109) 94 06/30/18 00:00 91 06/30/18 00:00 97.0 92 20 153/91 (111) 96 06/29/18 21:00 Room Air 06/29/18 20:00 106 06/29/18 20:00 97.3 90 20 156/89 (111) 95 Intake and Output 06/29/18 06/30/18 19:00 07:00 Intake Total 800 ml 120 ml Balance 800 ml 120 ml Intake Oral 800 ml 120 ml # Voids 3 4 # Bowel Movements 4 Laboratory Tests 06/30/18 07:50: White Blood Count 4.4L, Red Blood Count 2.66L, Hemoglobin 8.2L, Hematocrit 24.5L , Mean Corpuscular Volume 92, Mean Corpuscular Hemoglobin 30.9, Mean Corpuscular Hemoglobin Concent 33.5, Red Cell Distribution Width 13.7, Platelet Count 88L, Mean Platelet Volume 8.4, Neutrophils (%) (Auto) , Lymphocytes (%) ( Auto) , Monocytes (%) (Auto) , Eosinophils (%) (Auto) , Basophils (%) (Auto) , Differential Total Cells Counted 100, Neutrophils % (Manual) 82H, Lymphocytes % (Manual) 13L, Monocytes % (Manual) 5, Eosinophils % (Manual) 0, Basophils % ( Manual) 0, Band Neutrophils 0, Platelet Estimate DecreasedL, Platelet Morphology Normal, Hypochromasia 1+, Sodium Level 147H, Potassium Level 4.5, Chloride Level 112H, Carbon Dioxide Level 25, Anion Gap 10, Blood Urea Nitrogen 44H, Creatinine 2.0H, Estimat Glomerular Filtration Rate , Glucose Level 91#, Lactic Acid Level 0.90, Calcium Level 8.8, Troponin I 0.052 Height (Feet): 6 Height (Inches): 0.00 Weight (Pounds): 218 General Appearance: alert, confused, severe distress, agitated Joey Matson MD Jun 30, 2018 19:12
--- NOTE | 2018-06-30 19:30 | Electroencephalogram ---
DATE OF PROCEDURE: 06/29/2018 REQUESTING PHYSICIAN: Stella Gandara M.D. READING PHYSICIAN: Brian Lacy M.D. PROCEDURE PERFORMED: Electroencephalogram. HISTORY: This EEG was performed on a 78-year-old gentleman with a history of stroke, seizure disorder, diabetes mellitus, hypertension, cirrhosis, and a psychiatric illness. The patient was hospitalized for breakthrough seizures. It is unclear as to what kind of seizure disorder he has and thus this EEG was performed. TECHNICAL NOTE: This EEG was performed on a [employer] with electrodes placed on the scalp according to the International 10-20 system. [id number] and [id number] montages were used. The EEG was of technically mediocre quality due to the fact that when the patient was having an event, a referential montage was used, which contaminated the entire tracing with EMG artifact. OBSERVATIONS: In the reportedly awake state, the background activity consisted of 6.5-7 Hz theta activity. Drowsiness was characterized by irregular 4-5 Hz theta with bilateral frontal polymorphic delta activity. Towards the end of the tracing, 24 minutes into the EEG, the patient started to have left thumb twitching. In addition, he also had some left eye deviation. This was associated with EMG artifact, permeating the entire referential montage. After the event, no focal or generalized postictal slowing was noted. IMPRESSION: This is an abnormal EEG characterized by slowing of the background in the 6.5-7 Hz theta range in the best awake state. COMMENT: This study is consistent with: 1. An encephalopathy of moderate degree. 2. Signs of bilateral frontal dysfunction as evidenced by the bilateral frontal polymorphic delta. 3. The possible seizure was unfortunately permeated by EMG artifact and the use of a referential montage, and thus it is unclear if the event was epileptic or not. Brian Lcay M.D., M.S.P.H. DR: ONEAL JOB#: [id number] JOSE
[2018-06-30 20:00] VITALS: BP_SYST 129; BP_SYST 148; BP_DIAS 73; BP_DIAS 79
[2018-06-30] MEDS: Atorvastatin 80mg tab ORAL SCH (21:18)
[2018-07-01] VITALS: BP_SYST 129; BP_SYST 133; BP_DIAS 79
[2018-07-01 04:00] VITALS: BP 133/79
[2018-07-01] MEDS: NovoLOG Insulin Flexpen SUBQ SCH ×4 (06:09→21:30)
[2018-07-01] MEDS: Levemir Flexpen SUBQ SCH ×2 (06:09→21:29)
[2018-07-01] MEDS: Levothyroxine 25mcg tab ORAL SCH (06:21)
[2018-07-01 07:23] LABS: ANION GAP 7 mmol/L (5-15); BLOOD UREA NITROGEN 38 mg/dL (7-18); CALCIUM 8.3 MG/DL (8.5-10.1); CARBON DIOXIDE 27 MMOL/L (21-32); CHLORIDE 112 MMOL/L (98-107); POTASSIUM 4.3 MMOL/L (3.5-5.1); SODIUM 146 MMOL/L (136-145)
[2018-07-01 08:00] VITALS: BP 144/66
--- NOTE | 2018-07-01 08:55 | General Progress Note ---
Assessment/Plan Assessment/Plan #Epilepsy with breakthrough seizures - partial seizure overnight -Resume home meds -s/p keppra load in ED -Neurology consulted (Dr. Lacy) -Seizure precautions -Ativan IM PRN for seizure activity -adjust antiepileptic per neurology -EEG, MRI reviewed, neg acute. -inc keppra to 2g bid -need IV access then change meds to IV or else difficult time having patient take meds PO - PT, likely dispo alex #Lactic acidosis -likly 2/2 seizures -no infectious process suspected at this time -CTM #DM2 -Will hold oral DM meds as inpatient -Pt with decreased food intake, will decrease Lantus and titrate up as needed #Hypothyroidism -Cont synthroid #Pancytopenia -Anemia panel c/w ACD -likely 2/2 chronic liver disease and spleenomegaly -Appreciate Dr. Moreno consult #Cirrhosis #nodule - hypoechoic at tip of R hepatic lobe -ammonia WNL -Will need outpatient CT scan with contrast #AGUILAR -maintenance IV fluids started, however pt pulled out IV line -Encouraged PO intake, RN states PO intake is good. -CTM #Acute encephalopathy 2/2 chronic dementia, postictal state, sedative medications -Avoid benzos if possible -frequent orientation -fall precautions -aspiration precautions -Psych consult appreciated #Schizophrenia #Agitation -appreciate psych consult -Seroquel increased to TID -Cont seroquel PRN diet: regular ppx: scd, sqh code : full Hospital declaration INPATIENT level of care is warranted for this patient because patient is a78 year old with seizure disorder, dm who presents with suspicion of breakthrough seizures. I have a high level of concern because pts mental status. Patient is at high risk for prolong seizure activity. Plan of care/treatment include IV keppra. Patient care is expected to be greater than 2 midnights. Disposition: Once the patient is stable to leave the hospital, I anticipate the patient will likely be discharged to the following environment: SNF Estimated discharge date: 07-01-18 I spent 70 minutes on this patient's case, and 42 minutes was dedicated to counseling and/or care coordination. Subjective Date patient seen: Jul 01, 2018 Time patient seen: 08:53 Allergies: Coded Allergies: No Known Allergies (Unverified , 02/13/18) Subjective f/u seizures, encephalopathy partial seizure overnight agitated pending US and mri denies fevers/chills/KEYS/cp/sob ROS: 14 point ROS reviewed and negative except per the above Objective Last 24 Hour Vital Signs Date Time Temp Pulse Resp B/P (MAP) Pulse Ox O2 Delivery O2 Flow Rate FiO2 07/01/18 04:00 98.1 76 19 133/79 (97) 94 07/01/18 04:00 69 07/01/18 00:00 78 07/01/18 00:00 98.0 81 18 129/79 (96) 94 06/30/18 21:00 Room Air 06/30/18 20:00 80 06/30/18 20:00 98.3 68 19 148/73 (98) 96 06/30/18 16:00 97.2 73 20 140/70 (93) 94 06/30/18 15:14 73 06/30/18 13:53 97.2 80 20 147/79 (101) 94 06/30/18 13:08 75 Intake and Output 06/30/18 07/01/18 19:00 07:00 Intake Total 825 ml Output Total 400 ml Balance 425 ml Intake Oral 300 ml IV Total 525 ml Output Urine Total 400 ml # Voids 3 Laboratory Tests 07/01/18 05:45: Sodium Level 146H, Potassium Level 4.3, Chloride Level 112H, Carbon Dioxide Level 27, Anion Gap 7, Blood Urea Nitrogen 38H, Creatinine 2.0H, Estimat Glomerular Filtration Rate , Glucose Level 82, Calcium Level 8.3L, Troponin I 0.048 Height (Feet): 6 Height (Inches): 0.00 Weight (Pounds): 218 Objective Physical Exam General appearance: alert, non cooperative, agitated, no distress, appears stated age Head: Normocephalic, without obvious abnormality, atraumatic Eyes: conjunctivae/corneas clear. PERRL, EOM's intact. Fundi benign Throat: Lips, mucosa, and tongue normal. Teeth and gums normal Neck: supple, symmetrical, trachea midline, no adenopathy, thyroid: not enlarged, symmetric, no tenderness/mass/nodules, no carotid bruit and no JVD Lungs: clear to auscultation bilaterally Heart: regular rate and rhythm, S1, S2 normal, no murmur, click, rub or gallop Abdomen: soft, non-tender. Bowel sounds normal. No masses, Extremities: extremities normal, atraumatic, no cyanosis or edema Pulses: 2+ and symmetric Skin: Skin color, texture, turgor normal. No rashes or lesions Neurologic: Grossly normal, AAO to person , will not answer where he is or date. Teofilo Gandara MD Jul 01, 2018 08:55
[2018-07-01] MEDS: Aspirin EC 81mg tab ORAL SCH (09:27)
[2018-07-01] MEDS: Docusate 100mg cap ORAL SCH ×2 (09:27→21:26)
[2018-07-01] MEDS: Multivitamin w/Minerals tab ORAL SCH (09:27)
[2018-07-01] MEDS: levETIRAcetam 1,000mg/NS100ml 100 ML IVPB SCH ×4 (10:25→21:27)
[2018-07-01 12:00] VITALS: BP 141/79
--- NOTE | 2018-07-01 12:58 | Diagnostic Imaging Report ---
Indication: Abnormal renal function tests and abdominal pain Technique: Casillas-scale and duplex images of the upper abdomen were obtained. Doppler interrogation of the hepatic and pancreatic vessels Comparison: March 02, 2018 Findings: Gallbladder is surgically absent. Common bile duct measures 5 mm in diameter. No intrahepatic biliary ductal dilatation. Liver demonstrates coarsened echogenicity. There is slight surface nodularity again demonstrated. A small cyst is seen at the surface of the right hepatic lobe. Portal vein and hepatic veins are patent. Pancreas is unremarkable. Spleen is unremarkable. Left kidney measures 11.2 cm in length. Right kidney measures 12.1 cm length. Both kidneys demonstrate normal echogenicity. There is no hydronephrosis. Left kidney demonstrates a small lower pole cyst . Non-aneurysmal abdominal aorta . There are bilateral pleural effusions incidentally noted Impression: Status post cholecystectomy. Negative for biliary ductal dilatation Slightly coarsened hepatic echogenicity and slight hepatic surface nodularity, also previously described, suggestive of cirrhotic change Right lobe liver lesion previously described is more clearly cystic currently Bilateral pleural effusions Incidental finding left renal cyst
[2018-07-01 16:00] VITALS: BP 151/96
--- NOTE | 2018-07-01 18:23 | General Progress Note ---
Assessment/Plan Assessment/Plan Assessment/Recs: # Pancytopenia - cirrhosis++ and large spleen ++ in addition has evidence of cirrhosis on the us of the abdomen --> Hiv and hepatitis panel on prior admission was negative --> us of the abdomen shows spenomegaly that is enlarged spleen (REPEAT ON THIS ADMISSION) --> anemia panel ordered as well, ferritin, tibc, folic acid, tsh, occult blood- -> consistent with anemia of chronic disease --> peripheral smear reviewed and shows no significant abnml --> r/o infectious etiology, cultures have been negative thus far --> Neupogen if ANC <1000 # Anemia of chronic disease - consistent with above diagnosis --> anemia panel reviewed --> panel has been reviewed --> hgb goal >7 # 14 x 4 mm nodule hypoechoic structure at the tip of the right hepatic lobe --> outpatient CT scan with contrast of the abdomen can be completed # Acute encephalopathy superimposed on chronic dementia, also exacerbated by sedative medications given for agitation. Unclear etiology, could be related to mild AGUILAR present on admission or occult infection. --> avoid benzos, frequent orienting, fall, aspiration precautions. --> Correct underlying AGUILAR. --> Psychiatry consulted. appreciate recs # Mild AGUILAR, cr in the past elevated as well --> Avoid nephrotic meds, given ivf # History of epilepsy, will give Keppra intravenously as he is unable to take PO meds due to lethargy --> continue as per neuro/pcp # Type 2 DM, controlled, hold oral diabetic meds while oral intake is minimal, will give reduced dose Lantus # Hypothyroidism, continue levothyroxine - can give intravenously if he remains lethargic. # Azotemia has been reviewed # DVT ppx is ok with heparin if plt >50k GREATLY APPRECIATE CONSULTATION! Subjective ROS Limited/Unobtainable: Yes Allergies: Coded Allergies: No Known Allergies (Unverified , 02/13/18) Subjective 06/30: seen in the room , resting, MRI of the brain today, plt 88, no events 07/01: seen by bedside, resting in bed, comfortable. hgb 8, plt 88 Objective Last 24 Hour Vital Signs Date Time Temp Pulse Resp B/P (MAP) Pulse Ox O2 Delivery O2 Flow Rate FiO2 07/01/18 16:00 74 07/01/18 16:00 97.3 78 21 151/96 (114) 96 07/01/18 12:00 68 07/01/18 12:00 97.2 72 19 141/79 (99) 99 07/01/18 09:00 Room Air 07/01/18 08:00 97.0 70 20 144/66 (92) 95 07/01/18 08:00 70 07/01/18 04:00 98.1 76 19 133/79 (97) 94 07/01/18 04:00 69 07/01/18 00:00 78 07/01/18 00:00 98.0 81 18 129/79 (96) 94 06/30/18 21:00 Room Air 06/30/18 20:00 80 06/30/18 20:00 98.3 68 19 148/73 (98) 96 Intake and Output 06/30/18 07/01/18 19:00 07:00 Intake Total 825 ml 75 ml Output Total 400 ml Balance 425 ml 75 ml Intake Oral 300 ml IV Total 525 ml 75 ml Output Urine Total 400 ml # Voids 3 Laboratory Tests 07/01/18 05:45: Sodium Level 146H, Potassium Level 4.3, Chloride Level 112H, Carbon Dioxide Level 27, Anion Gap 7, Blood Urea Nitrogen 38H, Creatinine 2.0H, Estimat Glomerular Filtration Rate , Glucose Level 82, Calcium Level 8.3L, Troponin I 0.048 Height (Feet): 6 Height (Inches): 0.00 Weight (Pounds): 218 Objective Sp02 EP Interpretation: reviewed, normal General Appearance: no apparent distress, alert Respiratory: chest non-tender, lungs clear Cardiovascular: regular rate, rhythm Gastrointestinal: normal bowel sounds Genitourinary: normal inspection, no CVA tenderness Musculoskeletal: back normal, normal range of motion Neurologic: alert, responsive, motor strength/tone normal Watson Adams MD Jul 01, 2018 18:23
--- NOTE | 2018-07-01 19:52 | Neurology Progress Note ---
Interim History Interim History Interim History Mr. Laureano continues to be sedated. He can barely keep his eyes open. He has been seizure free. He has been non functional due to constant sedation. He is unable to give any further history. Review of Systems Neuro Review of Systems Unable to obtain. Objective Physical Exam Last Vital Signs Date Time Temp Pulse Resp B/P (MAP) Pulse Ox O2 Delivery O2 Flow Rate FiO2 07/01/18 16:00 74 07/01/18 16:00 97.3 21 151/96 (114) 96 07/01/18 09:00 Room Air 06/28/18 12:25 94 Laboratory Tests Test 07/01/18 05:45 Sodium Level 146 MMOL/L (136-145) H Potassium Level 4.3 MMOL/L (3.5-5.1) Chloride Level 112 MMOL/L (98-107) H Carbon Dioxide Level 27 MMOL/L (21-32) Anion Gap 7 mmol/L (5-15) Blood Urea Nitrogen 38 mg/dL (7-18) H Creatinine 2.0 MG/DL (0.55-1.30) H Estimat Glomerular Filtration Rate mL/min (>60) Glucose Level 82 MG/DL (74-106) Calcium Level 8.3 MG/DL (8.5-10.1) L Troponin I 0.048 ng/mL (0.000-0.056) Neurologic Exam Objective PHYSICAL EXAMINATION: GENERAL: He is a well-developed, well-nourished, gentleman, lying in bed, in two-point soft restraints. HEAD: Normocephalic and atraumatic. EENT: Examination benign. NECK: No neck rigidity was observed. NEUROLOGICAL EXAMINATION: MENTAL STATUS EXAMINATION: He was somnolent and could barely keep his eyes open. He was oriented to self only. He was unable to cooperate for further mental status tests. SPEECH: He had moderate dysarthria. LANGUAGE: Could not be tested due to sedation. CRANIAL NERVE EXAMINATION: II: The visual sullivan were intact to threat. III, IV & : The external ocular movements were full and the pupils 3 mm in diameter, equal, round, regular, and reactive to light. V: He had normal facial sensations and the temporales, masseters, and pterygoids functioned normally. VII: He had left seventh central facial paresis. VIII: He was able to hear well bilaterally and had no nystagmus. IX: The palate moved symmetrically on phonation. X: He had no hoarseness of voice. XI: The sternocleidomastoids and trapezii functioned normally. XII: The tongue was in the midline without any fasciculations or atrophy. MOTOR SYSTEM: The tone was normal in all four extremities. Examination of muscle mass revealed mild wasting of the small hand muscles on the left side. Examination of power was exceedingly difficult to perform because of varying amounts of effort. He had a left hemiparesis involving the upper extremity more than lower extremity and in addition a minor degree of right lower extremity paresis. SENSORY EXAMINATION: He had intact sensations to deep pain. He was unable to cooperate for the sensory modalities. REFLEXES: Trace+ and bilaterally symmetrical at the biceps, triceps, brachioradialis, and knees, 0 at both ankles. The plantar responses were flexor bilaterally. STANCE & GAIT: Could not be tested. Impression/Recommendations Diagnostic Impression 1. Mr. Chip Laureano is a 78-year-old, right-handed, gentleman, who does have a past history of hypertension, diabetes mellitus, hypothyroidism, stroke, seizure disorder, cirrhosis of the liver, colon cancer, and unknown type of psychiatric illness, who was hospitalized for two breakthrough seizures at his residential. The exact details of which are unknown to us. Since he has been in the hospital, he has had two more brief episodes of left upper extremity jerking. 2. He is sedated now. He can barely keep his eyes open. He has been seizure free. He has been non functional due to constant sedation. He is unable to give any further history. 3. On neurological examination, at this time, he is somnolent and can barely keep his eyes open. He is oriented to self only. He is unable to cooperate for further mental status tests. He has a moderate dysarthria. Language cannot be tested due to sedation. He has a left seventh central facial paresis, left upper extremity greater than lower extremity paresis, proximal right lower extremity paresis, and globally diminished deep tendon reflexes with flexor plantar responses. 4. The CT scan of the brain without contrast reveals atrophy and deep white matter changes, but no definite acute pathology. 5. The MRI of the brain done on 06/30/17 revealed atrophy and deep which matter disease involving the frontal lobes preferentially. 6. Laboratory data on my initial evaluation revealed that he is significantly anemic with a hemoglobin of 7.7 G. His chemistry panel reveals a BUN elevated at 48 with a creatinine of 2.2, blood glucose elevated at 256, albumin low at 2.9, TSH is high at 4.25 with a free T3 low at 2.0 and a normal free T4 at 0.84. His serum ammonia is normal at 14. His urinalysis is negative for leukocyte esterase with 0-4 red blood cells, and 0-2 white blood cells per high- power field. 7. The EEG done on 06/29/18 revealed findings consistent with a moderate encephalopathy and bifrontal dysfunction. He also had an episode of left upper extremity jerking during the EEG. Unfortunately the event occurred while the EEG was on a referential montage and the entire EEG was marred by EMG artifact - however no post-ictal focal slowing was seen. The event was most probably not epileptic in nature. 8. The patient's history, neurological examination, imaging and laboratory date are most compatible with breakthrough seizures in a patient with a prior history of seizures of an unknown type who now has toxic metabolic insults including a significant anemia, renal dysfunction, and is being sedated. Recommendations 1. Continue present management. 2. Continue Keppra 2 G q 12 hours. 3. Would give Ativan only if the patient has a generalized seizure and not for partial seizures. 4. Minimize mind altering drugs so that the patient can function. Brian Lacy M.D., M.S.P.H. Brian Lacy MD Jul 01, 2018 19:52
[2018-07-01 20:00] VITALS: BP 146/76
--- NOTE | 2018-07-01 20:53 | General Progress Note ---
Assessment/Plan Problem List: (1) Schizophrenia ICD Codes: F20.9 - Schizophrenia, unspecified SNOMED: 19709476 (2) Uncontrolled seizures ICD Codes: R56.9 - Unspecified convulsions SNOMED: 51093578 (3) Agitation ICD Codes: R45.1 - Restlessness and agitation SNOMED: 974881840 (4) Acute metabolic encephalopathy ICD Codes: G93.41 - Metabolic encephalopathy SNOMED: 77071347, 261119876 Assessment/Plan cont seroquel increase it to tid hold if sedated seroquel prn ativan and benadryl IM Subjective Neurologic/Psychiatric: Reports: anxiety, depressed, emotional problems Allergies: Coded Allergies: No Known Allergies (Unverified , 02/13/18) Subjective doing better Objective Last 24 Hour Vital Signs Date Time Temp Pulse Resp B/P (MAP) Pulse Ox O2 Delivery O2 Flow Rate FiO2 07/01/18 16:00 74 07/01/18 16:00 97.3 78 21 151/96 (114) 96 07/01/18 12:00 68 07/01/18 12:00 97.2 72 19 141/79 (99) 99 07/01/18 09:00 Room Air 07/01/18 08:00 97.0 70 20 144/66 (92) 95 07/01/18 08:00 70 07/01/18 04:00 98.1 76 19 133/79 (97) 94 07/01/18 04:00 69 07/01/18 00:00 78 07/01/18 00:00 98.0 81 18 129/79 (96) 94 06/30/18 21:00 Room Air Intake and Output 06/30/18 07/01/18 19:00 07:00 Intake Total 825 ml 75 ml Output Total 400 ml Balance 425 ml 75 ml Intake Oral 300 ml IV Total 525 ml 75 ml Output Urine Total 400 ml # Voids 3 Laboratory Tests 07/01/18 05:45: Sodium Level 146H, Potassium Level 4.3, Chloride Level 112H, Carbon Dioxide Level 27, Anion Gap 7, Blood Urea Nitrogen 38H, Creatinine 2.0H, Estimat Glomerular Filtration Rate , Glucose Level 82, Calcium Level 8.3L, Troponin I 0.048 Height (Feet): 6 Height (Inches): 0.00 Weight (Pounds): 218 General Appearance: alert, confused, moderate distress, agitated Joey Matson MD Jul 01, 2018 20:53
[2018-07-01] MEDS: Atorvastatin 80mg tab ORAL SCH (21:26)
[2018-07-02] VITALS: BP 146/81
[2018-07-02 04:00] VITALS: BP 148/76
[2018-07-02] MEDS: Levemir Flexpen SUBQ SCH ×3 (05:57→21:41)
[2018-07-02] MEDS: NovoLOG Insulin Flexpen SUBQ SCH ×4 (05:58→21:40)
[2018-07-02] MEDS: Levothyroxine 25mcg tab ORAL SCH (06:10)
[2018-07-02] MEDS ORDERED: KEPPRA750 MG ORAL (07:32)
[2018-07-02] MEDS ORDERED: SEROQUEL25 MG ORAL (07:32)
--- NOTE | 2018-07-02 07:37 | Discharge Summary ---
Discharge Summary Hospital Course Date of Admission Jun 28, 2018 at 15:15 Date of Discharge 07/02/18 Admitting Diagnosis UNCONTROLLED SEIZURE HPI Chip Laureano, Robbin is a 78 year old male who was admitted on Jun 28, 2018 at 15 :15 for Uncontrolled Seaizures Keppra inc to 2gm bid no seizures since placed on medications mri reviewed, neg acute eeg reviewed, signs of b/l frontal dysfunction as evidence by b/l frontal polymorphic delta. the possible seizure was unfortunately permeated by emg artifact and the use of referetial montage, and thus it is unclear if the event was epileptic or not . stable. dc back to [facility] no acute events overnight rec f/u with pcp and neuro outpt in 1-2 weeks Physical Exam General appearance: alert, non cooperative, agitated, no distress, appears stated age Head: Normocephalic, without obvious abnormality, atraumatic Eyes: conjunctivae/corneas clear. PERRL, EOM's intact. Fundi benign Throat: Lips, mucosa, and tongue normal. Teeth and gums normal Neck: supple, symmetrical, trachea midline, no adenopathy, thyroid: not enlarged, symmetric, no tenderness/mass/nodules, no carotid bruit and no JVD Lungs: clear to auscultation bilaterally Heart: regular rate and rhythm, S1, S2 normal, no murmur, click, rub or gallop Abdomen: soft, non-tender. Bowel sounds normal. No masses, Extremities: extremities normal, atraumatic, no cyanosis or edema Pulses: 2+ and symmetric Skin: Skin color, texture, turgor normal. No rashes or lesions Neurologic: Grossly normal, AAO to person , will not answer where he is or date. Hospital Course #Epilepsy with breakthrough seizures - partial seizure overnight -Resume home meds -s/p keppra load in ED -Neurology consulted (Dr. Lacy) -Seizure precautions -Ativan IM PRN for seizure activity -adjust antiepileptic per neurology -EEG, MRI reviewed, neg acute. -inc keppra to 2g bid -need IV access then change meds to IV or else difficult time having patient take meds PO - PT, likely dispo alex #Lactic acidosis -likly 2/2 seizures -no infectious process suspected at this time -CTM #DM2 -Will hold oral DM meds as inpatient -Pt with decreased food intake, will decrease Lantus and titrate up as needed #Hypothyroidism -Cont synthroid #Pancytopenia -Anemia panel c/w ACD -likely 2/2 chronic liver disease and spleenomegaly -Appreciate Dr. Moreno consult #Cirrhosis #nodule - hypoechoic at tip of R hepatic lobe -ammonia WNL -Will need outpatient CT scan with contrast #AGUILAR -maintenance IV fluids started, however pt pulled out IV line -Encouraged PO intake, RN states PO intake is good. -CTM #Acute encephalopathy 2/2 chronic dementia, postictal state, sedative medications -Avoid benzos if possible -frequent orientation -fall precautions -aspiration precautions -Psych consult appreciated #Schizophrenia #Agitation -appreciate psych consult -Seroquel increased to TID -Cont seroquel PRN diet: regular ppx: scd, sqh code : full Hospital declaration INPATIENT level of care is warranted for this patient because patient is a78 year old with seizure disorder, dm who presents with suspicion of breakthrough seizures. I have a high level of concern because pts mental status. Patient is at high risk for prolong seizure activity. Plan of care/treatment include IV keppra. Patient care is expected to be greater than 2 midnights. Disposition: Once the patient is stable to leave the hospital, I anticipate the patient will likely be discharged to the following environment: SNF Estimated discharge date: 07-01-18 I spent 70 minutes on this patient's case, and 42 minutes was dedicated to counseling and/or care coordination. Discharge Medications Changed Medications: Levetiracetam (Keppra) 750 Mg Tablet 2000 MG ORAL BID for SEIZURES for 30 Days, TAB (Changed from: 1500 MG) Quetiapine Fumarate* (Seroquel*) 25 Mg Tablet 25 MG ORAL TID for 5 Days, #10 TAB (Changed from: Q12HR) Continued Medications: Aspirin Ec* (Aspirin Ec*) 81 Mg Tablet.dr 81 MG ORAL DAILY, TAB Atorvastatin Calcium* (Atorvastatin Calcium*) 40 Mg Tablet 40 MG ORAL BEDTIME, TAB Cranberry (Cranberry) 400 Mg Capsule 450 MG PO, CAP Insulin Glargine (Lantus) 100 Unit/1 Ml Insuln.pen 10 UNITS SUBQ BEDTIME, #1 EA 0 Refills Levothyroxine Sodium* (Synthroid*) 25 Mcg Tablet 25 MCG ORAL DAILY, TAB Take in the morning on an empty stomach, at least 30 minutes before food. Lisinopril* (Lisinopril*) 10 Mg Tablet 10 MG ORAL DAILY, TAB Multivitamin-Min/Iron/FA/Vit K (Multi-Day Plus Minerals Tablet) 1 Each Tablet 1 EACH PO, TAB Risperidone* (Risperdal*) 0.5 Mg Tablet 1.5 MG ORAL BID, #30 TAB 0 Refills Discontinued Medications: Glipizide* (Glucotrol*) 10 Mg Tablet 10 MG ORAL ACBREAKFAST, #10 TAB 0 Refills Insulin Glargine (Lantus) 100 Unit/1 Ml Insuln.pen 30 UNITS SUBQ BEFORE BREAKFAST, #1 EA 0 Refills [Lispro 100 Units/Ml] () 3 UNITS SUBQ TID Sitagliptin (Januvia) 100 Mg Tablet 100 MG ORAL DAILY, TAB Discharge Condition Upon Discharge: stable Discharge Disposition Patient was discharged to SNF Discharge Diagnoses: (1) Acute metabolic encephalopathy (2) AGUILAR (acute kidney injury) (3) Uncontrolled seizures Teofilo Gandara MD Jul 02, 2018 07:37
[2018-07-02 08:00] VITALS: BP 161/75
[2018-07-02] MEDS: Multivitamin w/Minerals tab ORAL SCH (10:01)
[2018-07-02] MEDS: Docusate 100mg cap ORAL SCH ×2 (10:01→21:38)
[2018-07-02] MEDS: Aspirin EC 81mg tab ORAL SCH (10:01)
[2018-07-02] MEDS: levETIRAcetam 1,000mg/NS100ml 100 ML IVPB SCH ×4 (11:03→21:37)
[2018-07-02 12:00] VITALS: BP 156/82
[2018-07-02 16:00] VITALS: BP 149/75
--- NOTE | 2018-07-02 18:01 | Neurology Progress Note ---
Interim History Interim History Interim History Mr. Laureano feels better. He is eager to go home. He has been seizure free. He is significantly brighter today as his nurse has not had to give him any neuroleptics. He denies any increased weakness, numbness or other neurologic symptoms. Review of Systems Neuro Review of Systems Benign. Objective Physical Exam Last Vital Signs Date Time Temp Pulse Resp B/P (MAP) Pulse Ox O2 Delivery O2 Flow Rate FiO2 07/02/18 16:00 98.0 73 20 149/75 (99) 99 07/02/18 09:00 Room Air 06/28/18 12:25 94 Neurologic Exam Objective PHYSICAL EXAMINATION: GENERAL: He is a well-developed, well-nourished, gentleman, lying in bed, in no acute distress - enjoying his dinner. HEAD: Normocephalic and atraumatic. EENT: Examination benign. NECK: No neck rigidity was observed. NEUROLOGICAL EXAMINATION: MENTAL STATUS EXAMINATION: He was awake and alert. He was oriented to self only. He was able to recall 3/3 words immediately but could not remember them in 1 and 3 minutes. He was unable to remember any [place] presidents. SPEECH: He had mild dysarthria. LANGUAGE: He was able to comprehend and express himself. CRANIAL NERVE EXAMINATION: II: The visual sullivan were intact to confrontation. III, IV & : The external ocular movements were full and the pupils 3 mm in diameter, equal, round, regular, and reactive to light. V: He had normal facial sensations and the temporales, masseters, and pterygoids functioned normally. VII: He had left seventh central facial paresis. VIII: He was able to hear well bilaterally and had no nystagmus. IX: The palate moved symmetrically on phonation. X: He had no hoarseness of voice. XI: The sternocleidomastoids and trapezii functioned normally. XII: The tongue was in the midline without any fasciculations or atrophy. MOTOR SYSTEM: The tone was normal in all four extremities. Examination of muscle mass revealed mild wasting of the small hand muscles on the left side. Examination of power revealed G 5/5 power except for G 4/5 in the left hand, and G 4+/5 in the iliopsoas bilaterally. SENSORY EXAMINATION: He had intact sensations to light touch. He was unable to cooperate for the sensory modalities. REFLEXES: Trace+ and bilaterally symmetrical at the biceps, triceps, brachioradialis, and knees, 0 at both ankles. The plantar responses were flexor bilaterally. STANCE & GAIT: Could not be tested. Impression/Recommendations Diagnostic Impression 1. Mr. Chip Laureano is a 78-year-old, right-handed, gentleman, who does have a past history of hypertension, diabetes mellitus, hypothyroidism, stroke, seizure disorder, cirrhosis of the liver, colon cancer, and unknown type of psychiatric illness, who was hospitalized for two breakthrough seizures at his [facility]. The exact details of which are unknown to us. Since he has been in the hospital, he has had two more brief episodes of left upper extremity jerking. 2. He feels better. He is eager to go home. He has been seizure free. He is significantly brighter today as his nurse has not had to give him any neuroleptics. He denies any increased weakness, numbness or other neurologic symptoms. 3. On neurological examination, at this time, he is awake and alert. He is oriented to self only. He has significant problems with memory and other cognitive function. He is unable to cooperate for further mental status tests. He has a mild dysarthria. He has a left seventh central facial paresis, left upper extremity greater than lower extremity paresis, proximal right lower extremity paresis, and globally diminished deep tendon reflexes with flexor plantar responses. 4. The CT scan of the brain without contrast reveals atrophy and deep white matter changes, but no definite acute pathology. 5. The MRI of the brain done on 06/30/17 revealed atrophy and deep which matter disease involving the frontal lobes preferentially. 6. Laboratory data on my initial evaluation revealed that he is significantly anemic with a hemoglobin of 7.7 G. His chemistry panel reveals a BUN elevated at 48 with a creatinine of 2.2, blood glucose elevated at 256, albumin low at 2.9, TSH is high at 4.25 with a free T3 low at 2.0 and a normal free T4 at 0.84. His serum ammonia is normal at 14. His urinalysis is negative for leukocyte esterase with 0-4 red blood cells, and 0-2 white blood cells per high- power field. 7. The EEG done on 06/29/18 revealed findings consistent with a moderate encephalopathy and bifrontal dysfunction. He also had an episode of left upper extremity jerking during the EEG. Unfortunately the event occurred while the EEG was on a referential montage and the entire EEG was marred by EMG artifact - however no post-ictal focal slowing was seen. The event was most probably not epileptic in nature. 8. The patient's history, neurological examination, imaging and laboratory date are most compatible with breakthrough seizures in a patient with a prior history of seizures of an unknown type who now has toxic metabolic insults including a significant anemia, renal dysfunction, and was being sedated. Recommendations 1. Continue present management. 2. Continue Keppra 2 G q 12 hours. 3. Would give Ativan only if the patient has a generalized seizure and not for partial seizures. 4. Continue to minimize mind altering drugs so that the patient can function. Brian Lacy M.D., M.S.P.H. Brian Lacy MD Jul 02, 2018 18:01
[2018-07-02 20:00] VITALS: BP 145/76
--- NOTE | 2018-07-02 20:39 | General Progress Note ---
Assessment/Plan Assessment/Plan Assessment/Recs: # Pancytopenia - cirrhosis++ and large spleen ++ in addition has evidence of cirrhosis on the us of the abdomen --> Hiv and hepatitis panel on prior admission was negative --> us of the abdomen shows spenomegaly that is enlarged spleen (REPEAT ON THIS ADMISSION) --> anemia panel ordered as well, ferritin, tibc, folic acid, tsh, occult blood- -> consistent with anemia of chronic disease --> peripheral smear reviewed and shows no significant abnml --> r/o infectious etiology, cultures have been negative thus far --> Neupogen if ANC <1000 --> wbc trend: 3.3-->3.1-->--4.4 -->plt trend: 72-->76-->73 -->88 # Anemia of chronic disease - consistent with above diagnosis --> anemia panel reviewed --> panel has been reviewed --> hgb goal >7 --> hgb trend: 8.1-->8.0-->7.7-->8.2 # 14 x 4 mm nodule hypoechoic structure at the tip of the right hepatic lobe --> outpatient CT scan with contrast of the abdomen can be completed # Acute encephalopathy superimposed on chronic dementia, also exacerbated by sedative medications given for agitation. Unclear etiology, could be related to mild AGUILAR present on admission or occult infection. --> avoid benzos, frequent orienting, fall, aspiration precautions. --> Correct underlying AGUILAR. --> Psychiatry consulted. appreciate recs # Mild AGUILAR, cr in the past elevated as well --> Avoid nephrotic meds, given ivf # History of epilepsy, will give Keppra intravenously as he is unable to take PO meds due to lethargy --> continue as per neuro/pcp # Type 2 DM, controlled, hold oral diabetic meds while oral intake is minimal, will give reduced dose Lantus # Hypothyroidism, continue levothyroxine - can give intravenously if he remains lethargic. # Azotemia has been reviewed # DVT ppx is ok with heparin if plt >50k GREATLY APPRECIATE CONSULTATION! Subjective Constitutional: Denies: no symptoms, chills, diaphoresis, fever, malaise, weakness, other HEENT: Denies: no symptoms, eye pain, blurred vision, tearing, double vision, ear pain, ear discharge, nose pain, nose congestion, throat pain, throat swelling, mouth pain, mouth swelling, other Cardiovascular: Denies: no symptoms, chest pain, edema, irregular heart rate, lightheadedness, palpitations, syncope, other Respiratory: Denies: no symptoms, cough, orthopnea, shortness of breath, SOB with excertion, SOB at rest, sputum, stridor, wheezing, other Gastrointestinal/Abdominal: Denies: no symptoms, abdomen distended, abdominal pain, black stools, tarry stools, blood in stool, constipated, diarrhea, difficulty swallowing, nausea, poor appetite, poor fluid intake, rectal bleeding , vomiting, other Genitourinary: Denies: no symptoms, burning, discharge, frequency, flank pain, hematuria, incontinence, pain, urgency, other Neurologic/Psychiatric: Denies: no symptoms, anxiety, depressed, emotional problems, headache, numbness, paresthesia, pre-existing deficit, seizure, tingling, tremors, weakness, other Endocrine: Denies: no symptoms, excessive sweating, flushing, intolerance to cold, intolerance to heat, increased hunger, increased thirst, increased urine, unexplained weight gain, unexplained weight loss, other Hematologic/Lymphatic: Denies: no symptoms, anemia, easy bleeding, easy bruising, other Allergies: Coded Allergies: No Known Allergies (Unverified , 02/13/18) Subjective 06/30: seen in the room , resting, MRI of the brain today, plt 88, no events 07/01: seen by bedside, resting in bed, comfortable. hgb 8, plt 88 07/02: Pt is seen in the room, sitting up in bed, plan d/c pt back to [facility], hgb 8.2, plt 88 Objective Last 24 Hour Vital Signs Date Time Temp Pulse Resp B/P (MAP) Pulse Ox O2 Delivery O2 Flow Rate FiO2 07/02/18 16:03 69 07/02/18 16:00 98.0 73 20 149/75 (99) 99 07/02/18 12:00 98.0 71 20 156/82 (106) 96 07/02/18 12:00 69 07/02/18 09:00 Room Air 07/02/18 08:00 98.0 81 21 161/75 (103) 100 07/02/18 07:33 66 07/02/18 04:00 67 07/02/18 04:00 97.3 69 16 148/76 (100) 97 07/02/18 00:00 73 07/02/18 00:00 97.9 80 18 146/81 (102) 95 07/01/18 21:00 Room Air Intake and Output 07/01/18 07/02/18 19:00 07:00 Intake Total 1061.25 ml Output Total 900 ml Balance 161.25 ml IV Total 1061.25 ml Output Urine Total 900 ml # Voids 2 # Bowel Movements 1 1 Height (Feet): 6 Height (Inches): 0.00 Weight (Pounds): 218 Objective Sp02 EP Interpretation: reviewed, normal General Appearance: no apparent distress, alert Respiratory: chest non-tender, lungs clear Cardiovascular: regular rate, rhythm Gastrointestinal: normal bowel sounds Genitourinary: normal inspection, no CVA tenderness Musculoskeletal: back normal, normal range of motion Neurologic: alert, responsive, motor strength/tone normal Watson Adams MD Jul 02, 2018 20:39
[2018-07-02] MEDS: Atorvastatin 80mg tab ORAL SCH (21:37)
--- NOTE | 2018-07-02 23:54 | General Progress Note ---
Assessment/Plan Problem List: (1) Schizophrenia ICD Codes: F20.9 - Schizophrenia, unspecified SNOMED: 07353272 (2) Uncontrolled seizures ICD Codes: R56.9 - Unspecified convulsions SNOMED: 26189771 (3) Agitation ICD Codes: R45.1 - Restlessness and agitation SNOMED: 259534133 (4) Acute metabolic encephalopathy ICD Codes: G93.41 - Metabolic encephalopathy SNOMED: 72391222, 858356490 Assessment/Plan cont seroquel increase it to tid hold if sedated seroquel prn ativan and benadryl IM Subjective Date patient seen: Jul 02, 2018 Neurologic/Psychiatric: Reports: anxiety, depressed, emotional problems Allergies: Coded Allergies: No Known Allergies (Unverified , 02/13/18) Subjective doing better Objective Last 24 Hour Vital Signs Date Time Temp Pulse Resp B/P (MAP) Pulse Ox O2 Delivery O2 Flow Rate FiO2 07/02/18 16:03 69 07/02/18 16:00 98.0 73 20 149/75 (99) 99 07/02/18 12:00 98.0 71 20 156/82 (106) 96 07/02/18 12:00 69 07/02/18 09:00 Room Air 07/02/18 08:00 98.0 81 21 161/75 (103) 100 07/02/18 07:33 66 07/02/18 04:00 67 07/02/18 04:00 97.3 69 16 148/76 (100) 97 07/02/18 00:00 73 07/02/18 00:00 97.9 80 18 146/81 (102) 95 Intake and Output 07/01/18 07/02/18 19:00 07:00 Intake Total 1061.25 ml Output Total 900 ml Balance 161.25 ml IV Total 1061.25 ml Output Urine Total 900 ml # Voids 2 # Bowel Movements 1 1 Height (Feet): 6 Height (Inches): 0.00 Weight (Pounds): 218 General Appearance: alert, confused, agitated Joey Matson MD Jul 02, 2018 23:54
[2018-07-03] VITALS: BP 137/74
[2018-07-03 04:00] VITALS: BP 145/75
[2018-07-03] MEDS: Levothyroxine 25mcg tab ORAL SCH (06:37)
[2018-07-03] MEDS: Levemir Flexpen SUBQ SCH (06:38)
[2018-07-03] MEDS: NovoLOG Insulin Flexpen SUBQ SCH (06:39)
[2018-07-03 08:00] VITALS: BP 132/80
--- NOTE | 2018-07-03 09:00 | General Progress Note ---
Assessment/Plan Assessment/Plan #Epilepsy with breakthrough seizures - partial seizure overnight -Resume home meds -s/p keppra load in ED -Neurology consulted (Dr. Lacy) -Seizure precautions -Ativan IM PRN for seizure activity -adjust antiepileptic per neurology -EEG, MRI reviewed, neg acute. -inc keppra to 2g bid -need IV access then change meds to IV or else difficult time having patient take meds PO - PT, likely dispo alex #Lactic acidosis -likly 2/2 seizures -no infectious process suspected at this time -CTM #DM2 -Will hold oral DM meds as inpatient -Pt with decreased food intake, will decrease Lantus and titrate up as needed #Hypothyroidism -Cont synthroid #Pancytopenia -Anemia panel c/w ACD -likely 2/2 chronic liver disease and spleenomegaly -Appreciate Dr. Moreno consult #Cirrhosis #nodule - hypoechoic at tip of R hepatic lobe -ammonia WNL -Will need outpatient CT scan with contrast #AGUILAR -maintenance IV fluids started, however pt pulled out IV line -Encouraged PO intake, RN states PO intake is good. -CTM #Acute encephalopathy 2/2 chronic dementia, postictal state, sedative medications -Avoid benzos if possible -frequent orientation -fall precautions -aspiration precautions -Psych consult appreciated #Schizophrenia #Agitation -appreciate psych consult -Seroquel increased to TID -Cont seroquel PRN diet: regular ppx: scd, sqh code : full Hospital declaration INPATIENT level of care is warranted for this patient because patient is a78 year old with seizure disorder, dm who presents with suspicion of breakthrough seizures. I have a high level of concern because pts mental status. Patient is at high risk for prolong seizure activity. Plan of care/treatment include IV keppra. Patient care is expected to be greater than 2 midnights. Disposition: Once the patient is stable to leave the hospital, I anticipate the patient will likely be discharged to the following environment: SNF Estimated discharge date: 07-03-18 I spent 50 minutes on this patient's case, and 32 minutes was dedicated to counseling and/or care coordination. Subjective Date patient seen: Jul 03, 2018 Time patient seen: 08:59 Allergies: Coded Allergies: No Known Allergies (Unverified , 02/13/18) Subjective f/u seizures, encephalopathy partial seizure overnight agitated pending US and mri denies fevers/chills/KEYS/cp/sob stable pending dc ROS: 14 point ROS reviewed and negative except per the above Objective Last 24 Hour Vital Signs Date Time Temp Pulse Resp B/P (MAP) Pulse Ox O2 Delivery O2 Flow Rate FiO2 07/03/18 08:00 98.0 76 20 132/80 (97) 95 07/03/18 04:00 69 07/03/18 04:00 98.4 69 19 145/75 (98) 96 07/03/18 00:00 80 07/03/18 00:00 98.1 80 16 137/74 (95) 95 07/02/18 21:00 Room Air 07/02/18 20:00 77 07/02/18 20:00 98.2 73 18 145/76 (99) 96 07/02/18 16:03 69 07/02/18 16:00 98.0 73 20 149/75 (99) 99 07/02/18 12:00 98.0 71 20 156/82 (106) 96 07/02/18 12:00 69 07/02/18 09:00 Room Air Intake and Output 07/02/18 07/03/18 18:59 06:59 Output Total 800 ml 550 ml Balance -800 ml -550 ml Output Urine Total 800 ml 550 ml Height (Feet): 6 Height (Inches): 0.00 Weight (Pounds): 218 Objective Physical Exam General appearance: alert, non cooperative, agitated, no distress, appears stated age Head: Normocephalic, without obvious abnormality, atraumatic Eyes: conjunctivae/corneas clear. PERRL, EOM's intact. Fundi benign Throat: Lips, mucosa, and tongue normal. Teeth and gums normal Neck: supple, symmetrical, trachea midline, no adenopathy, thyroid: not enlarged, symmetric, no tenderness/mass/nodules, no carotid bruit and no JVD Lungs: clear to auscultation bilaterally Heart: regular rate and rhythm, S1, S2 normal, no murmur, click, rub or gallop Abdomen: soft, non-tender. Bowel sounds normal. No masses, Extremities: extremities normal, atraumatic, no cyanosis or edema Pulses: 2+ and symmetric Skin: Skin color, texture, turgor normal. No rashes or lesions Neurologic: Grossly normal, AAO to person , will not answer where he is or date. Teofilo Gandara MD Jul 03, 2018 09:00
[2018-07-03] MEDS: Multivitamin w/Minerals tab ORAL SCH (09:57)
[2018-07-03] MEDS: Aspirin EC 81mg tab ORAL SCH (09:57)
[2018-07-03] MEDS: levETIRAcetam 1,000mg/NS100ml 100 ML IVPB SCH ×2 (10:00)
[2018-07-03] MEDS: Docusate 100mg cap ORAL SCH (10:01)
--- NOTE | 2018-07-03 23:17 | General Progress Note ---
Assessment/Plan Problem List: (1) Schizophrenia ICD Codes: F20.9 - Schizophrenia, unspecified SNOMED: 23719852 (2) Uncontrolled seizures ICD Codes: R56.9 - Unspecified convulsions SNOMED: 39314034 (3) Agitation ICD Codes: R45.1 - Restlessness and agitation SNOMED: 911029110 (4) Acute metabolic encephalopathy ICD Codes: G93.41 - Metabolic encephalopathy SNOMED: 97752457, 467323441 Assessment/Plan cont seroquel increase it to tid hold if sedated seroquel prn ativan and benadryl IM Subjective Neurologic/Psychiatric: Reports: anxiety, emotional problems Allergies: Coded Allergies: No Known Allergies (Unverified , 02/13/18) Subjective doing better Objective Last 24 Hour Vital Signs Date Time Temp Pulse Resp B/P (MAP) Pulse Ox O2 Delivery O2 Flow Rate FiO2 07/03/18 08:00 98.0 76 20 132/80 (97) 95 07/03/18 04:00 69 07/03/18 04:00 98.4 69 19 145/75 (98) 96 07/03/18 00:00 80 07/03/18 00:00 98.1 80 16 137/74 (95) 95 Intake and Output 07/02/18 07/03/18 19:00 07:00 Output Total 800 ml 550 ml Balance -800 ml -550 ml Output Urine Total 800 ml 550 ml Height (Feet): 6 Height (Inches): 0.00 Weight (Pounds): 218 General Appearance: alert, confused, agitated Joey Matson MD Jul 03, 2018 23:17
== END 2018-07-03 10:10 | DRG 100 ==
LOC: EDBD 12:09 → EMR 12:30 → 2E 15:15 → EDBEDREQ 15:37 → 2E 17:26
DX: G40.919 Epilepsy, unspecified, intractable, without status epilepticus (principal); G93.41 Metabolic encephalopathy; D61.818 Other pancytopenia; N17.9 Acute kidney failure, unspecified; E87.2 Acidosis; D63.8 Anemia in other chronic diseases classified elsewhere; F20.9 Schizophrenia, unspecified; Z78.1 Physical restraint status; E03.9 Hypothyroidism, unspecified; F03.90 Unspecified dementia, unspecified severity, without behavioral disturbance, psychotic disturbance, mood disturbance, and anxiety; K74.60 Unspecified cirrhosis of liver; E11.9 Type 2 diabetes mellitus without complications; Z79.84 Long term (current) use of oral hypoglycemic drugs; Z85.038 Personal history of other malignant neoplasm of large intestine; F41.9 Anxiety disorder, unspecified
CPT/HCPCS: 36415; 70450; 70551; 71045; 76700; 80048; 80053; 80299; 81003; 82140; 82550; 82553; 82962; 83605; 83735; 84100; 84439; 84443; 84481; 84484; 85007; 85025; 86710; 87040; 87081; 93005; 95819; 96361; 96365; 96375; 99285; J1815; S5561